=== PATIENT | female | born 1940 | race Caucasian/White ===

== ENCOUNTER → 2017-11-23 11:56 | Outpatient (CLI) | payer MEDICARE, OTHER, SELFPAY ==
[2017-11-23 14:31] LABS: Absolute Neutrophil Count 1.6 X10^3/uL (2.0-7.7); Basophil# 0.02 X10^3/uL; Basophil% 0.6 % (0-1); Eosinophil# 0.01 X10^3/uL; Eosinophils% 0.3 % (0-5); Hematocrit 47.1 % (37-47); Hemoglobin 15.6 g/dl (12.0-15.0); Lymphocyte % 42.4 % (19-41); Mean Corp Hgb Conc 33.1 g/gl (32-36); Mean Corpuscular Hgb 29.3 pg (27.0-32.0); Mean Corpuscular Volume 88.4 fL (81-99); Mean Platelet Vol. 10.5 fl (6.2-12.0); Monocyte# 0.42 X10^3/uL; Monocyte% 11.9 % (0-10); Neutrophil # 1.59 X10^3/uL (2.7-7.7); Neutrophil % 44.8 % (47-70); Platelet Count 119 K/mm3 (150-450); RBC Distribution Width CV 13.8 % (11.6-14.6); RBC Distribution Width SD 44.8 fl (35.1-43.9); Red Blood Count 5.33 M/mm3 (4.2-5.4); White Blood Count 3.5 K/mm3 (4.4-11.0)
[2017-11-23 14:35] LABS: POSITIVE COUNT NO; POSITIVE DIFFERENTIAL NO; POSITIVE MORPHOLOGY NO
[2017-11-23 15:01] LABS: AST(SGOT) 37 U/L (15-37); Alanine Aminotransfer ALT/SGPT 41 U/L (13-56); Albumin, Serum 3.5 g/dL (3.2-5.0); Alkaline Phosphatase 52 U/L (45-117); Anion Gap 7 (5-15); BUN 5 mg/dL (7-18); BUN/Creat Ratio 8.4 RATIO (10-20); Calcium,Total 8.9 mg/dL (8.5-10.1); Chloride 100 mmol/L (98-107); EST Glomerular Filtration Rate 105 mL/min (>60); Est Glom Filt Rate - Afr Amer 127 mL/min (>60); Globulin 3.5 g/dL (2.2-4.2); Glucose 124 mg/dL (74-106); Sodium Level 136 mmol/L (136-145); Thyroid Stim Hormone (TSH) 1.72 uIU/mL (0.358-3.74)
== END ==
PROVIDERS: Family Provider Family Medicine; PCP Family Medicine; Visit Provider Family Medicine
DX: K52.9 Noninfective gastroenteritis and colitis, unspecified (principal); R41.3 Other amnesia
CPT/HCPCS: 36415; 80053; 84443; 85025

== ENCOUNTER → 2017-12-20 09:25 | Outpatient (CLI) | payer MEDICARE, OTHER, SELFPAY ==
[2017-12-20 12:28] LABS: Absolute Lymphocyte Count 2.56 X10^3/ul (0.83-4.51); Absolute Neutrophil Count 3.5 X10^3/uL (2.0-7.7); Basophil# 0.03 X10^3/uL; Basophil% 0.4 % (0-1); Eosinophil# 0.23 X10^3/uL; Eosinophils% 3.3 % (0-5); Hemoglobin 15.1 g/dl (12.0-15.0); Lymphocyte # 2.56 X10^3/ul (4.0); Lymphocyte % 37.3 % (19-41); Mean Corp Hgb Conc 32.8 g/gl (32-36); Mean Corpuscular Hgb 29.7 pg (27.0-32.0); Mean Corpuscular Volume 90.4 fL (81-99); Mean Platelet Vol. 10.8 fl (6.2-12.0); Monocyte# 0.55 X10^3/uL; Neutrophil # 3.48 X10^3/uL (2.7-7.7); Neutrophil % 50.7 % (47-70); Platelet Count 201 K/mm3 (150-450); RBC Distribution Width CV 14.5 % (11.6-14.6); RBC Distribution Width SD 47.2 fl (35.1-43.9); Red Blood Count 5.09 M/mm3 (4.2-5.4); White Blood Count 6.9 K/mm3 (4.4-11.0)
[2017-12-20 12:32] LABS: POSITIVE COUNT NO; POSITIVE DIFFERENTIAL NO; POSITIVE MORPHOLOGY NO
[2017-12-20 12:41] LABS: Vitamin B12 1092 pg/mL (211-911)
== END ==
PROVIDERS: Visit Provider Family Medicine
DX: D69.6 Thrombocytopenia, unspecified (principal); E53.8 Deficiency of other specified B group vitamins
CPT/HCPCS: 36415; 82607; 85025

== ENCOUNTER → 2018-06-09 08:48 | Outpatient (CLI) | payer MEDICARE, OTHER, SELFPAY ==
[2018-06-10 08:34] LABS: Vitamin B12 923 pg/mL (211-911)
== END ==
PROVIDERS: Family Provider Family Medicine; PCP Family Medicine; Visit Provider Family Medicine
DX: E53.8 Deficiency of other specified B group vitamins (principal)
CPT/HCPCS: 36415; 82607

== ENCOUNTER → 2018-06-17 10:25 | Outpatient (CLI) | payer MEDICARE, OTHER, SELFPAY ==
[2018-06-17 12:12] LABS: AST(SGOT) 19 U/L (15-37); Alanine Aminotransfer ALT/SGPT 28 U/L (13-56); Anion Gap 8 (5-15); BUN 10 mg/dL (7-18); BUN/Creat Ratio 13.6 RATIO (10-20); Calcium,Total 9.2 mg/dL (8.5-10.1); Chloride 106 mmol/L (98-107); Cholesterol 147 mg/dL (200); Creatinine, Serum 0.74 mg/dL (0.55-1.02); EST Glomerular Filtration Rate 82 mL/min (>60); Est Glom Filt Rate - Afr Amer 99 mL/min (>60); Glucose 98 mg/dL (74-106); High Density Lipoprotein 65 mg/dL; Sodium Level 141 mmol/L (136-145); Triglycerides 105 mg/dL; Very Low Density Lipoprotein 21 mg/dL (5-40)
== END ==
PROVIDERS: Family Provider Family Medicine; PCP Family Medicine; Visit Provider Family Medicine
DX: Z01.419 Encounter for gynecological examination (general) (routine) without abnormal findings (principal); E78.5 Hyperlipidemia, unspecified
CPT/HCPCS: 36415; 80048; 80061; 84450; 84460

== ENCOUNTER → 2018-07-26 08:39 | Outpatient (CLI) | payer MEDICARE, OTHER, SELFPAY ==
--- NOTE | 2018-07-26 08:45 | BI_ITS ---
MAMMOGRAPHY - BILATERAL SCREENING REASON FOR EXAM: Female, 77 years old. Routine annual screening examination. PERTINENT HISTORY: Aunt with breast cancer. Remote bilateral excisional breast biopsies. TECHNIQUE: Digital bilateral breast narcisa (3D mammographic acquisition) in the CC and MLO projections. 2-D mediolateral oblique (MLO) and craniocaudad (CC) views of both breasts were obtained. CAD: Full Field Digital Mammography with Computer Added Detection was performed. COMPARISON: Comparison is made with prior examination dated June 30, 2017 and June 04, 2016. FINDINGS: Breast Composition: There are scattered areas of fibroglandular density. There are no dominant masses or suspicious calcifications. Stable appearance of the small bilateral axillary lymph nodes. No other significant abnormalities are identified. There has been no significant change since the prior study. BI/SCREENING MAMM (CAD), BILAT IMPRESSION: Stable bilateral screening mammogram. Yearly follow-up mammogram recommended. (A) ASSESSMENT CATEGORY: BIRADS Category 2: Benign. A letter regarding these results will be sent to the patient by the facility within 30 days. Approximately 10% of breast cancers are not detected by mammography. A normal mammogram should not delay biopsy of a clinically suspicious abnormality. [id number] Electronically Signed: Reymundo Cassidy MD at 10:26 EDT Tel [phone], Service support ,
== END ==
PROVIDERS: Family Provider Family Medicine; PCP Family Medicine; Visit Provider Family Medicine
DX: Z12.31 Encounter for screening mammogram for malignant neoplasm of breast (principal)
CPT/HCPCS: 77063; 77067

== ENCOUNTER → 2018-09-21 09:40 | Outpatient (CLI) | payer MEDICARE, OTHER, SELFPAY ==
--- NOTE | 2018-09-21 09:45 | RAD_ITS ---
STUDY: X-RAY - THORACIC SPINE REASON FOR EXAM: Female, 78 years old. TECHNIQUE: view(s) of the thoracic spine were obtained. COMPARISON: None. FINDINGS: There is mild kyphosis with the narrowing of some of the disc spaces in the mid dorsal spine associated with anterior osteophyte formation. No paraspinal soft tissue mass seen. RAD/Thoracic Spine 2 Views IMPRESSION: Mild kyphosis and hypertrophic degenerative changes of the dorsal spine Electronically Signed: Giovanny Juan, at 15:49 EST Tel , Service support ,
== END ==
PROVIDERS: Family Provider Family Medicine; PCP Family Medicine; Referring Provider Anesthesiology Pain Medicine; Visit Provider Anesthesiology Pain Medicine
DX: M40.294 Other kyphosis, thoracic region (principal); M48.04 Spinal stenosis, thoracic region
CPT/HCPCS: 72070

== ENCOUNTER → 2018-11-10 11:25 | Outpatient (CLI) | payer MEDICARE, OTHER, SELFPAY ==
--- NOTE | 2018-11-10 11:30 | RAD_ITS ---
STUDY: X-RAY - LUMBAR SPINE REASON FOR EXAM: Female, 78 years old. Low back pain TECHNIQUE: 2 view(s) of the lumbar spine were obtained. COMPARISON: 2013 FINDINGS: Normal lumbar lordosis. There is no substantial scoliosis. There is a normal alignment of the vertebrae. There is multilevel endplate spondylosis of the lumbar vertebrae. There is multi-level degenerative disc disease with multi-level disc space narrowing. There is no demonstrated fracture. There is atherosclerotic calcification of the abdominal aorta without a demonstrated aneurysm. RAD/Lumbar Spine 2 or 3 Views IMPRESSION: Degenerative changes of the spine, as detailed above. Electronically Signed: Piter Choudhury MD at 13:57 EST , Service support ,
== END ==
PROVIDERS: Family Provider Family Medicine; PCP Family Medicine; Referring Provider Anesthesiology Pain Medicine; Visit Provider Anesthesiology Pain Medicine
DX: M47.896 Other spondylosis, lumbar region (principal); M51.36 Other intervertebral disc degeneration, lumbar region; M48.061 Spinal stenosis, lumbar region without neurogenic claudication
CPT/HCPCS: 72100

== ENCOUNTER → 2018-11-25 15:16 | Outpatient (CLI) | payer MEDICARE, OTHER, SELFPAY ==
--- NOTE | 2018-11-25 15:21 | MRI_ITS ---
STUDY: MRI THORACIC SPINE WITHOUT CONTRAST REASON FOR EXAM: Female, 78 years old. Back pain radiating to the anterior right side. TECHNIQUE: Standardized fat and water weighted pulse sequences were obtained in the sagittal and axial planes. COMPARISON: None. FINDINGS: Normal kyphosis of the thoracic spine. There is no substantial scoliosis. T1-2, T2-3, T3-4, T4-5, T5-6, T6-7, T7-8, T8-9, T9-10, T10-11, T11-12: Multilevel disc desiccation is present with mild disc space loss. No significant disc bulge, spinal canal narrowing or foraminal narrowing is evident. There is a central canal dilatation of the thoracic cord measuring approximately 2 mm and likely associated with persistent central canal given appearance. No evidence of a Chiari formation on sagittal cervical imaging. Normal conus medullaris that terminates at the near L1. The soft tissue structures are unremarkable. MRI/Spine Thoracic (Routine) IMPRESSION: 1. Degenerative changes as above with no significant spinal canal narrowing, foraminal narrowing or acute osseous process. 2. 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 Recommend follow-up imaging to ensure stability as this study will serve as a baseline. Electronically Signed: Joey Hough DO at 10:10 EST , Service support ,
--- NOTE | 2018-11-25 15:22 | MRI_ITS ---
STUDY: MRI LUMBAR SPINE WITHOUT CONTRAST REASON FOR EXAM: Female, 78 years old. Back pain radiates anterior and to the right side. TECHNIQUE: Standardized fat and water weighted pulse sequences were obtained in the sagittal and axial planes. COMPARISON: X-ray lumbar spine 11/10/2018. FINDINGS: T12-L1: Normal endplates. Normal disc height, hydration and morphology. Normal bilateral facet joints. Normal central canal and bilateral lateral recesses. Normal bilateral intervertebral neural foramina. Normal lumbar lordosis. There is no substantial scoliosis. Normal conus medullaris that terminates at the L1 level. L1-2: Normal endplates. Normal disc height, hydration and morphology. There is a very small left paramedian protrusion, likely spondylotic. This is noncompressive. Normal bilateral facet joints. Normal central canal and bilateral lateral recesses. Normal bilateral intervertebral neural foramina. L2-3: Normal endplates. Normal disc height, hydration and morphology. Mild facet hypertrophy, greater on the right. Normal central canal and bilateral lateral recesses. Normal bilateral intervertebral neural foramina. L3-4: Normal endplates. Disc dehydration and mild disc space narrowing. No disc protrusion or canal stenosis. Mild facet hypertrophy. There is mild right foraminal stenosis due to spurring and facet hypertrophy. L4-5: Normal endplates. Disc dehydration and mild disc space narrowing. No disc protrusion or canal stenosis. There is moderate facet hypertrophy bilaterally. Foramina are patent. L5-S1: Normal endplates. Normal disc height, hydration and morphology. Moderate facet hypertrophy, greater on the right. Normal central canal and bilateral lateral recesses. Normal bilateral intervertebral neural foramina. Normal visualized sacral ala. Normal visualized paraspinous soft tissue structures. MRI/Spine Lumbar (Routine) IMPRESSION: 1. No compressive disc disease, canal or high-grade foraminal stenosis. 2. Degenerative changes are detailed above. Electronically Signed: Flores Crowe MD at 21:36 EST Tel , Service support ,
== END ==
PROVIDERS: Family Provider Family Medicine; PCP Family Medicine; Referring Provider Anesthesiology Pain Medicine; Visit Provider Anesthesiology Pain Medicine
DX: M54.9 Dorsalgia, unspecified (principal)
CPT/HCPCS: 72146; 72148

== ENCOUNTER → 2018-12-07 09:05 | Outpatient (CLI) | payer MEDICARE, OTHER, SELFPAY ==
[2018-12-07 11:00] LABS: Anion Gap 9 (5-15); BUN 12 mg/dL (7-18); BUN/Creat Ratio 17.3 RATIO (10-20); Calcium,Total 8.9 mg/dL (8.5-10.1); Chloride 103 mmol/L (98-107); Creatinine, Serum 0.69 mg/dL (0.55-1.02); EST Glomerular Filtration Rate 87 mL/min (>60); Est Glom Filt Rate - Afr Amer 106 mL/min (>60); Glucose 84 mg/dL (74-106); Potassium 3.9 mmol/L (3.5-5.1); Sodium Level 139 mmol/L (136-145); Vitamin B12 913 pg/mL (211-911)
== END ==
PROVIDERS: Family Provider Family Medicine; PCP Family Medicine; Referring Provider Family Medicine; Visit Provider Family Medicine
DX: I10 Essential (primary) hypertension (principal); E53.8 Deficiency of other specified B group vitamins; E55.9 Vitamin D deficiency, unspecified
CPT/HCPCS: 36415; 80048; 82306; 82607

== ENCOUNTER → 2019-04-18 09:54 | Outpatient (CLI) | payer MEDICARE, OTHER, SELFPAY ==
--- NOTE | 2019-04-18 09:55 | RAD_ITS ---
STUDY: X-RAY - THORACIC SPINE REASON FOR EXAM: Female, 78 years old. Mid back pain TECHNIQUE: 3 view(s) of the thoracic spine were obtained. COMPARISON: None. FINDINGS: There is an increase in the normal thoracic kyphosis. There is no substantial scoliosis. There is demineralization of the thoracic spine with endplate spondylosis. There is multilevel disc space narrowing of the thoracic spine. The soft tissue structures are unremarkable. RAD/Thoracic Spine 3 Views IMPRESSION: Multilevel degenerative changes, no acute findings Electronically Signed: Piter Choudhury MD at 10:57 EDT , Service support ,
--- NOTE | 2019-04-18 09:55 | RAD_ITS ---
STUDY: X-RAY - LUMBAR SPINE REASON FOR EXAM: Female, 78 years old. Low back pain TECHNIQUE: 4 view(s) of the lumbar spine were obtained. COMPARISON: 11/10/18 FINDINGS: Normal lumbar lordosis. There is no substantial scoliosis. There is a normal alignment of the vertebrae. There is multilevel endplate spondylosis of the lumbar vertebrae. There is multi-level degenerative disc disease with multi-level disc space narrowing. There is no demonstrated fracture. There is atherosclerotic calcification of the abdominal aorta without a demonstrated aneurysm. RAD/L/S Spine Min 4 Views IMPRESSION: Degenerative changes of the spine, as detailed above. Electronically Signed: Piter Choudhury MD at 10:57 EDT , Service support ,
== END ==
PROVIDERS: Family Provider Family Medicine; PCP Family Medicine; Referring Provider Orthopaedic Surgery; Visit Provider Orthopaedic Surgery
DX: M54.5 Low back pain (principal)
CPT/HCPCS: 72072; 72110

== ENCOUNTER → 2019-06-23 09:30 | Outpatient (CLI) | payer MEDICARE, OTHER, SELFPAY ==
[2019-06-23 12:37] LABS: AST(SGOT) 22 U/L (15-37); Alanine Aminotransfer ALT/SGPT 28 U/L (13-56); Anion Gap 6 (5-15); BUN 11 mg/dL (7-18); BUN/Creat Ratio 14.8 RATIO (10-20); Calcium,Total 9.6 mg/dL (8.5-10.1); Chloride 106 mmol/L (98-107); Cholesterol 176 mg/dL (200); Creatinine, Serum 0.74 mg/dL (0.55-1.02); EST Glomerular Filtration Rate 81 mL/min (>60); Est Glom Filt Rate - Afr Amer 98 mL/min (>60); Glucose 99 mg/dL (74-106); High Density Lipoprotein 73 mg/dL; Potassium 4.2 mmol/L (3.5-5.1); Sodium Level 142 mmol/L (136-145); Triglycerides 105 mg/dL; Very Low Density Lipoprotein 21 mg/dL (5-40)
== END ==
PROVIDERS: Family Provider Family Medicine; PCP Family Medicine; Referring Provider Family Medicine; Visit Provider Family Medicine
DX: I10 Essential (primary) hypertension (principal); E78.5 Hyperlipidemia, unspecified
CPT/HCPCS: 36415; 80048; 80061; 84450; 84460

== ENCOUNTER → 2019-07-27 07:24 | Outpatient (CLI) | payer MEDICARE, OTHER, SELFPAY ==
--- NOTE | 2019-07-27 07:27 | BI_ITS ---
MAMMOGRAPHY - BILATERAL SCREENING REASON FOR EXAM: Female, 78 years old. Routine annual screening examination. PERTINENT HISTORY: Aunt with breast cancer. Remote right and left excisional breast biopsies. TECHNIQUE: Digital bilateral breast mary (3D mammographic acquisition) in the CC and MLO projections. 2-D mediolateral oblique (MLO) and craniocaudad (CC) views of both breasts were obtained. CAD: Full Field Digital Mammography with Computer Added Detection was performed. COMPARISON: Comparison is made with prior examination July 26, 2018 and June 30, 2017. FINDINGS: Breast Composition: There are scattered areas of fibroglandular density. There are no dominant masses or suspicious calcifications. Stable benign-appearing bilateral axillary lymph nodes No other significant abnormalities are identified. There has been no significant change since the prior study. BI/SCREEN MAMM (CAD) W/MARY BILAT IMPRESSION: Stable bilateral screening mammogram. Yearly follow-up mammogram recommended. (A) ASSESSMENT CATEGORY: BIRADS Category 2: Benign. A letter regarding these results will be sent to the patient by the facility within 30 days. Approximately 10% of breast cancers are not detected by mammography. A normal mammogram should not delay biopsy of a clinically suspicious abnormality. [id number] Electronically Signed: Reymundo Cassidy, at 9:11 EDT , Service support ,
== END ==
PROVIDERS: Family Provider Family Medicine; PCP Family Medicine; Referring Provider Nurse Practitioner Adult Health; Visit Provider Nurse Practitioner Adult Health
DX: Z12.31 Encounter for screening mammogram for malignant neoplasm of breast (principal); Z80.3 Family history of malignant neoplasm of breast
CPT/HCPCS: 77063; 77067

== ENCOUNTER → 2019-08-22 12:04 | Outpatient (CLI) | payer MEDICARE, OTHER, SELFPAY | PROVIDERS: Family Provider Family Medicine; PCP Family Medicine; Referring Provider Family Medicine; Visit Provider Family Medicine | DX: R30.0 Dysuria (principal) | CPT/HCPCS: 87086; 87088 ==

== ENCOUNTER → 2019-11-30 09:03 | Outpatient (CLI) | payer MEDICARE, OTHER, SELFPAY ==
[2019-11-30 10:30] LABS: AST(SGOT) 16 U/L (15-37); Alanine Aminotransfer ALT/SGPT 26 U/L (13-56); Anion Gap 5 (5-15); BUN 9 mg/dL (7-18); BUN/Creat Ratio 12.8 RATIO (10-20); Calcium,Total 9.5 mg/dL (8.5-10.1); Chloride 105 mmol/L (98-107); Cholesterol 165 mg/dL (200); EST Glomerular Filtration Rate 86 mL/min (>60); Est Glom Filt Rate - Afr Amer 104 mL/min (>60); Glucose 89 mg/dL (74-106); High Density Lipoprotein 64 mg/dL; Potassium 3.6 mmol/L (3.5-5.1); Sodium Level 141 mmol/L (136-145); Triglycerides 134 mg/dL; Very Low Density Lipoprotein 27 mg/dL (5-40)
[2019-11-30 10:34] LABS: Vitamin B12 506 pg/mL (211-911); Vitamin D,25 Hydroxy 39.2 ng/mL
== END ==
PROVIDERS: PCP Family Medicine; Referring Provider Family Medicine; Visit Provider Family Medicine
DX: E78.5 Hyperlipidemia, unspecified (principal); I10 Essential (primary) hypertension; E53.8 Deficiency of other specified B group vitamins; E55.9 Vitamin D deficiency, unspecified
CPT/HCPCS: 36415; 80048; 80061; 82306; 82607; 84450; 84460

== ENCOUNTER → 2019-12-08 10:06 | Outpatient (CLI) | payer MEDICARE, OTHER, SELFPAY ==
[2019-12-08 12:36] LABS: Absolute Lymphocyte Count 2.32 X10^3/uL (0.83-4.51); Absolute Neutrophil Count 3.8 X10^3/uL (2.0-7.7); Basophil# 0.05 X10^3/uL; Basophil% 0.7 % (0-1); Eosinophil# 0.14 X10^3/uL; Hematocrit 48.1 % (37-47); Hemoglobin 15.5 g/dL (12.0-15.0); Lymphocyte # 2.32 X10^3/ul (4.0); Lymphocyte % 33.9 % (19-41); Mean Corp Hgb Conc 32.2 g/dL (32-36); Mean Corpuscular Hgb 29.8 pg (27.0-32.0); Mean Corpuscular Volume 92.5 fL (81-99); Mean Platelet Vol. 10.8 fl (6.2-12.0); Monocyte# 0.52 X10^3/uL; Monocyte% 7.6 % (0-10); NRBC Flagged by Analyzer 0 % (0-5); Neutrophil # 3.81 X10^3/uL (2.7-7.7); Neutrophil % 55.7 % (47-70); Platelet Count 191 K/mm3 (150-450); RBC Distribution Width CV 13.3 % (11.6-14.6); RBC Distribution Width SD 45.5 fl (35.1-43.9); White Blood Count 6.9 K/mm3 (4.4-11.0)
== END ==
PROVIDERS: PCP Family Medicine; Visit Provider Family Medicine
DX: D69.6 Thrombocytopenia, unspecified (principal)
CPT/HCPCS: 36415; 85025

== ENCOUNTER → 2020-06-17 10:06 | Outpatient (CLI) | payer MEDICARE, OTHER, SELFPAY ==
[2020-06-17 13:51] LABS: BUN 8 mg/dL (7-18); Creatinine, Serum 0.63 mg/dL (0.55-1.02); Glucose 97 mg/dL (74-106)
[2020-06-17 13:52] LABS: Anion Gap 8 (5-15); BUN/Creat Ratio 12.7 RATIO (10-20); Calcium,Total 9.8 mg/dL (8.5-10.1); Chloride 106 mmol/L (98-107); EST Glomerular Filtration Rate 97 mL/min (>60); Est Glom Filt Rate - Afr Amer 118 mL/min (>60); Potassium 3.9 mmol/L (3.5-5.1); Sodium Level 143 mmol/L (136-145)
== END ==
PROVIDERS: PCP Family Medicine; Referring Provider Family Medicine; Visit Provider Family Medicine
DX: I10 Essential (primary) hypertension (principal)
CPT/HCPCS: 36415; 80048

== ENCOUNTER → 2020-08-09 10:27 | Outpatient (CLI) | payer MEDICARE, OTHER, SELFPAY ==
--- NOTE | 2020-08-09 10:30 | BI_ITS ---
MAMMOGRAPHY - BILATERAL SCREENING REASON FOR EXAM: Female, 79 years old. Routine annual screening examination. PERTINENT HISTORY: Aunt with breast cancer. Remote bilateral excisional breast biopsies. TECHNIQUE: Digital bilateral breast mary (3D mammographic acquisition) in the CC and MLO projections. 2-D mediolateral oblique (MLO) and craniocaudad (CC) views of both breasts were obtained. CAD: Full Field Digital Mammography with Computer Added Detection was performed. COMPARISON: Comparison is made with prior study dated 07/27/2019 and 07/26/2018. FINDINGS: Breast Composition: There are scattered areas of fibroglandular density. There are no dominant masses or suspicious calcifications. Stable benign appearing bilateral axillary lymph nodes. No other significant abnormalities are identified. There has been no significant change since the prior study. BI/SCREEN MAMM (CAD) W/MARY BILAT IMPRESSION: Stable bilateral screening mammogram. Yearly follow-up mammogram recommended. (A) ASSESSMENT CATEGORY: BIRADS Category 2: Benign. A letter regarding these results will be sent to the patient by the facility within 30 days. Approximately 10% of breast cancers are not detected by mammography. A normal mammogram should not delay biopsy of a clinically suspicious abnormality. [id number] Electronically Signed: Reymundo Cassidy, at 11:31 EST , Service support ,
== END ==
PROVIDERS: PCP Family Medicine; Referring Provider Family Medicine; Visit Provider Family Medicine
DX: Z12.31 Encounter for screening mammogram for malignant neoplasm of breast (principal)
CPT/HCPCS: 77063; 77067

== ENCOUNTER → 2021-01-07 09:29 | Outpatient (CLI) | payer MEDICARE, OTHER, SELFPAY ==
[2021-01-07 12:21] LABS: Absolute Lymphocyte Count 2.33 X10^3/uL (0.83-4.51); Absolute Neutrophil Count 4.1 X10^3/uL (2.0-7.7); Basophil# 0.05 X10^3/uL; Basophil% 0.7 % (0-1); Eosinophil# 0.18 X10^3/uL; Eosinophils% 2.5 % (0-5); Hematocrit 49.5 % (37-47); Lymphocyte # 2.33 X10^3/ul (4.0); Lymphocyte % 32.5 % (19-41); Mean Corp Hgb Conc 32.3 g/dL (32-36); Mean Corpuscular Hgb 30.3 pg (27.0-32.0); Mean Corpuscular Volume 93.8 fL (81-99); Mean Platelet Vol. 10.4 fl (6.2-12.0); Monocyte# 0.48 X10^3/uL; Monocyte% 6.7 % (0-10); NRBC Flagged by Analyzer 0 % (0-5); Neutrophil # 4.11 X10^3/uL (2.7-7.7); Neutrophil % 57.3 % (47-70); Platelet Count 219 K/mm3 (150-450); RBC Distribution Width CV 13.2 % (11.6-14.6); RBC Distribution Width SD 45.1 fl (35.1-43.9); Red Blood Count 5.28 M/mm3 (4.2-5.4); White Blood Count 7.2 K/mm3 (4.4-11.0)
[2021-01-07 12:40] LABS: Vitamin B12 343 pg/mL (211-911); Vitamin D,25 Hydroxy 26.2 ng/mL
[2021-01-07 12:57] LABS: Microalbumin,Random Urine 7.5 mg/L (NO RANGE EST.); Microalbumin:Creatinine Ratio 8.7 mg/g CRE (<30 mg/g CRE)
[2021-01-07 13:00] LABS: AST(SGOT) 15 U/L (15-37); Alanine Aminotransfer ALT/SGPT 25 U/L (13-56); Anion Gap 5 (5-15); BUN 12 mg/dL (7-18); BUN/Creat Ratio 15.8 RATIO (10-20); Calcium,Total 9.6 mg/dL (8.5-10.1); Chloride 104 mmol/L (98-107); Cholesterol 176 mg/dL (200); Creatinine, Serum 0.76 mg/dL (0.55-1.02); EST Glomerular Filtration Rate 78 mL/min (>60); Est Glom Filt Rate - Afr Amer 94 mL/min (>60); Glucose 98 mg/dL (74-106); High Density Lipoprotein 67 mg/dL; Potassium 4.1 mmol/L (3.5-5.1); Sodium Level 138 mmol/L (136-145); Triglycerides 131 mg/dL; Very Low Density Lipoprotein 26 mg/dL (5-40)
== END ==
PROVIDERS: PCP Family Medicine; Referring Provider Family Medicine; Visit Provider Family Medicine
DX: I10 Essential (primary) hypertension (principal); E55.9 Vitamin D deficiency, unspecified; E53.8 Deficiency of other specified B group vitamins; E78.5 Hyperlipidemia, unspecified
CPT/HCPCS: 36415; 80048; 80061; 82043; 82306; 82570; 82607; 84450; 84460; 85025

== ENCOUNTER → 2021-07-14 10:34 | Outpatient (CLI) | payer MEDICARE, OTHER, SELFPAY ==
[2021-07-14 12:19] LABS: Absolute Neutrophil Count 3.7 X10^3/uL (2.0-7.7); Basophil# 0.05 X10^3/uL; Basophil% 0.7 % (0-1); Eosinophil# 0.11 X10^3/uL; Eosinophils% 1.6 % (0-5); Hematocrit 46.7 % (37-47); Hemoglobin 15.4 g/dL (12.0-15.0); Lymphocyte % 35.8 % (19-41); Mean Corpuscular Hgb 30.5 pg (27.0-32.0); Mean Corpuscular Volume 92.5 fL (81-99); Mean Platelet Vol. 10.4 fl (6.2-12.0); Monocyte# 0.47 X10^3/uL; NRBC Flagged by Analyzer 0 % (0-5); Neutrophil # 3.65 X10^3/uL (2.7-7.7); Neutrophil % 54.6 % (47-70); Platelet Count 189 K/mm3 (150-450); RBC Distribution Width CV 13.3 % (11.6-14.6); RBC Distribution Width SD 45.1 fl (35.1-43.9); Red Blood Count 5.05 M/mm3 (4.2-5.4); White Blood Count 6.7 K/mm3 (4.4-11.0)
[2021-07-14 12:55] LABS: Anion Gap 7 (5-15); BUN 7 mg/dL (7-18); BUN/Creat Ratio 9.4 RATIO (10-20); Calcium,Total 9.6 mg/dL (8.5-10.1); Chloride 104 mmol/L (98-107); Cholesterol 156 mg/dL (200); Creatinine, Serum 0.74 mg/dL (0.55-1.02); EST Glomerular Filtration Rate 80 mL/min (>60); Est Glom Filt Rate - Afr Amer 97 mL/min (>60); Glucose 97 mg/dL (74-106); High Density Lipoprotein 70 mg/dL; Potassium 4.1 mmol/L (3.5-5.1); Sodium Level 141 mmol/L (136-145); Triglycerides 109 mg/dL; Very Low Density Lipoprotein 22 mg/dL (5-40)
== END ==
PROVIDERS: PCP Family Medicine; Visit Provider Family Medicine
DX: I10 Essential (primary) hypertension (principal); L65.9 Nonscarring hair loss, unspecified
CPT/HCPCS: 36415; 80048; 80061; 84443; 85025

== ENCOUNTER → 2021-08-19 08:01 | Outpatient (CLI) | payer MEDICARE, OTHER, SELFPAY ==
--- NOTE | 2021-08-19 08:04 | BI_ITS ---
MAMMOGRAPHY - BILATERAL SCREENING 3-D TOMOSYNTHESIS REASON FOR EXAM: Female, 80 years old. Routine screening PERTINENT HISTORY: Aunt with breast cancer.. TECHNIQUE: 2-D mammograms and 3-D Tomosynthesis of the breast (s) were performed. CAD was performed. COMPARISON: 08/09/2020 FINDINGS: The breast composition is composed of scattered fibroglandular density. Scattered benign calcifications are seen. No dense spiculated masses or suspicious microcalcifications are identified. No architectural distortion is identified. There is no skin thickening or retraction. There has been no significant change since the prior study. BI/SCREENING MAMM (CAD), BILAT IMPRESSION: No mammographic signs of malignancy. Routine yearly mammograms recommended. ASSESSMENT CATEGORY: BIRADS Category 1: Negative. A letter regarding these results will be sent to the patient by the facility within 30 days. FOLLOW UP RECOMMENDATION: Yearly follow up mammogram recommended. (A) Approximately 10% of breast cancers are not detected by mammography. A normal mammogram should not delay biopsy of a clinically suspicious abnormality. Electronically Signed: Piter Choudhury MD at 10:35 EST , Service support ,
== END ==
PROVIDERS: PCP Family Medicine; Referring Provider Family Medicine; Visit Provider Family Medicine
DX: Z12.31 Encounter for screening mammogram for malignant neoplasm of breast (principal); R30.0 Dysuria
CPT/HCPCS: 77067; 87086; 87088

== ENCOUNTER 2022-01-12 10:08 | Outpatient (CLI) | payer MEDICARE, OTHER, SELFPAY ==
[2022-01-12 12:26] LABS: Vitamin D,25 Hydroxy 59.4 ng/mL
== END 2022-01-12 23:59 | disposition home or self-care (01) ==
LOC: MFPLAB 10:09
PROVIDERS: PCP Family Medicine; Visit Provider Family Medicine
DX: E55.9 Vitamin D deficiency, unspecified (principal)
CPT/HCPCS: 36415; 82306

== ENCOUNTER → 2022-07-13 | Outpatient (CLI) | payer MEDICARE, OTHER, SELFPAY ==
[2022-07-13 12:19] LABS: Absolute Lymphocyte Count 2.26 X10^3/uL (0.83-4.51); Basophil# 0.05 X10^3/uL; Basophil% 0.7 % (0-1); Eosinophil# 0.17 X10^3/uL; Eosinophils% 2.5 % (0-5); Hematocrit 49.2 % (37-47); Hemoglobin 16.4 g/dL (12.0-15.0); Lymphocyte # 2.26 X10^3/ul (0.83-4.51); Lymphocyte % 32.9 % (19-41); Mean Corp Hgb Conc 33.3 g/dL (32-36); Mean Corpuscular Hgb 31.1 pg (27.0-32.0); Mean Corpuscular Volume 93.4 fL (81-99); Mean Platelet Vol. 10.5 fl (6.2-12.0); Monocyte# 0.43 X10^3/uL; Monocyte% 6.3 % (0-10); NRBC Flagged by Analyzer 0 % (0-5); Neutrophil # 3.95 X10^3/uL (2.7-7.7); Neutrophil % 57.5 % (47-70); Platelet Count 188 K/mm3 (150-450); RBC Distribution Width CV 13.3 % (11.6-14.6); RBC Distribution Width SD 45.5 fl (35.1-43.9); Red Blood Count 5.27 M/mm3 (4.2-5.4); White Blood Count 6.9 K/mm3 (4.4-11.0)
[2022-07-13 12:44] LABS: Vitamin B12 304 pg/mL (211-911)
[2022-07-13 13:22] LABS: AST(SGOT) 19 U/L (15-37); Alanine Aminotransfer ALT/SGPT 28 U/L (13-56); Anion Gap 8 (5-15); BUN 7 mg/dL (7-18); BUN/Creat Ratio 10.1 RATIO (10-20); Calcium,Total 9.9 mg/dL (8.5-10.1); Chloride 105 mmol/L (98-107); Cholesterol 164 mg/dL (200); Creatinine, Serum 0.69 mg/dL (0.55-1.02); EST Glomerular Filtration Rate 87 mL/min (>60); Est Glom Filt Rate - Afr Amer 105 mL/min (>60); Glucose 114 mg/dL (74-106); High Density Lipoprotein 69 mg/dL; Potassium 4.1 mmol/L (3.5-5.1); Sodium Level 140 mmol/L (136-145); Thyroid Stim Hormone (TSH) 1.71 uIU/mL (0.358-3.74); Triglycerides 126 mg/dL; Very Low Density Lipoprotein 25 mg/dL (5-40)
== END | disposition home or self-care (01) ==
LOC: MFPLAB 10:25
PROVIDERS: PCP Family Medicine; Referring Provider Family Medicine; Visit Provider Family Medicine
DX: E78.5 Hyperlipidemia, unspecified (principal); I10 Essential (primary) hypertension; E53.8 Deficiency of other specified B group vitamins; L65.9 Nonscarring hair loss, unspecified
CPT/HCPCS: 36415; 80048; 80061; 82607; 84443; 84450; 84460; 85025

== ENCOUNTER → 2022-08-14 | Outpatient (CLI) | payer MEDICARE, OTHER, SELFPAY ==
--- NOTE | 2022-08-14 09:40 | US_ITS ---
STUDY: ABDOMINAL ULTRASOUND - RIGHT UPPER QUADRANT REASON FOR VISIT: Female, 81 years old possible stone in bile duct/inflammation TECHNIQUE: Ultrasound evaluation of the right upper quadrant was performed with real-time and static neumann-scale imaging. TECHNICAL QUALITY: Adequate. COMPARISON: None. FINDINGS: Liver: The liver measures 13.9 cm. There is normal echogenicity of the liver. The bile ducts are within normal limits. There is hepatic color flow. The direction of portal flow is hepatopetal. There is no demonstrated mass lesion. Gallbladder: Normal distended gallbladder. The gallbladder wall measures 1.3 mm. There is a negative sonographic Parekh''s sign. There is no pericholecystic fluid. There are no gallstones. Common Bile Duct (C.B.D.): The common bile duct measures 6.3 mm. Pancreas: Normal size of the head, body and tail of the pancreas. There is increased echogenicity of the pancreas. There is no demonstrated pancreatic mass or cyst. Right Kidney: Normal size of the right kidney. The right kidney measures 10.1 cm x 4.7 cm x 3.3 cm. Normal renal cortex. The right cortex measures 1.0 cm. There is no demonstrated renal mass or cyst. There is no right hydronephrosis. US/Abdomen Limited IMPRESSION: Normal right upper quadrant ultrasound examination. Electronically Signed: Reymundo Cassidy MD at 14:47 EST ,
== END | disposition home or self-care (01) ==
LOC: US 09:39
PROVIDERS: PCP Family Medicine; Referring Provider Family Medicine; Visit Provider Family Medicine
DX: K82.9 Disease of gallbladder, unspecified (principal)
CPT/HCPCS: 76705

== ENCOUNTER → 2022-08-24 | Outpatient (CLI) | payer MEDICARE, OTHER, SELFPAY ==
--- NOTE | 2022-08-24 07:42 | BI_ITS ---
MAMMOGRAPHY - BILATERAL SCREENING REASON FOR EXAM: Female, 81 years old. Routine annual screening examination. PERTINENT HISTORY: Aunt with breast cancer. Prior bilateral excisional breast biopsies. TECHNIQUE: Digital bilateral breast mary (3D mammographic acquisition) in the CC and MLO projections. 2-D mediolateral oblique (MLO) and craniocaudad (CC) views of both breasts were obtained. CAD: Full Field Digital Mammography with Computer Added Detection was performed. COMPARISON: Comparison is made with prior study dated 08/19/2021 and 08/09/2020. FINDINGS: Breast Composition: There are scattered areas of fibroglandular density. There are no dominant masses or suspicious calcifications. Stable small benign-appearing bilateral axillary lymph nodes. No other significant abnormalities are identified. There has been no significant change since the prior study. BI/SCRN MAMM (CAD)W/MARY BILAT IMPRESSION: Stable bilateral screening mammogram. Yearly follow-up mammogram recommended. (A) ASSESSMENT CATEGORY: BIRADS Category 2: Benign. A letter regarding these results will be sent to the patient by the facility within 30 days. Approximately 10% of breast cancers are not detected by mammography. A normal mammogram should not delay biopsy of a clinically suspicious abnormality. [id number] Electronically Signed: Reymundo Cassidy MD at 11:24 EST ,
== END | disposition home or self-care (01) ==
LOC: OPBI 07:41
PROVIDERS: PCP Family Medicine; Visit Provider Family Medicine
DX: Z12.31 Encounter for screening mammogram for malignant neoplasm of breast (principal)
CPT/HCPCS: 77063; 77067

== ENCOUNTER → 2023-01-15 | Outpatient (CLI) | payer MEDICARE, OTHER, SELFPAY | END | disposition home or self-care (01) | LOC: LABSPEC 12:13 | PROVIDERS: PCP Family Medicine; Referring Provider Family Medicine; Visit Provider Family Medicine | DX: R10.2 Pelvic and perineal pain (principal) | CPT/HCPCS: 87077; 87086; 87088; 87186 ==

== ENCOUNTER → 2023-01-19 | Outpatient (CLI) | payer MEDICARE, OTHER, SELFPAY ==
--- NOTE | 2023-01-19 12:54 | US_ITS ---
INDICATION: pelvic pain and urinary frequency EXAMINATION: Ultrasound US Pelvis Non OB Complete With Transvaginal Imaging TECHNIQUE: Transabdominal and transvaginal pelvic ultrasound was performed. Grayscale, spectral waveform, and color flow Doppler evaluation of the adnexa. COMPARISON: None. FINDINGS: UTERUS: Anteverted. The uterus measures 5.9 x 3.4 cm. There is no uterine mass. The endometrial stripe measures 7 mm in AP diameter which is within normal limits. There is a small amount of fluid seen within the endometrial cavity. There are scattered calcifications seen at the periphery of the uterus. RIGHT OVARY not visualized LEFT OVARY: 2.3 x 1.7 x 2.0 cm. Complex cyst likely hemorrhagic cyst 1.3 x 1.4 x 1.6 cm.. There is normal arterial inflow and venous outflow present in the left ovary. Posterior wall irregularity of the bladder. This could be due to incomplete distention or cystitis. Mass cannot be excluded. FREE FLUID: None. US/Pelvic w/ Transvaginal IMPRESSION: Endometrial thickness is 7 mm a small amount of fluid in endometrial cavity. Given patient''s postmenopausal status this could represent endometrial hyperplasia or endometrial carcinoma. Complex cyst left ovary 1.3 x 1.4 x 1.6 cm. This could represent hemorrhagic cyst. Other etiology cannot be excluded. Posterior bladder wall irregularity could be due to incomplete distention, cystitis or occult mass. Electronically Signed: Rad Arciniega MD, SE at 21:37 EDT ,
== END | disposition home or self-care (01) ==
LOC: US 12:54
PROVIDERS: PCP Family Medicine; Referring Provider Family Medicine; Visit Provider Family Medicine
DX: R10.2 Pelvic and perineal pain (principal)
CPT/HCPCS: 76830; 76856

== ENCOUNTER → 2023-01-29 | Outpatient (CLI) | payer MEDICARE, OTHER, SELFPAY ==
--- NOTE | 2023-01-29 | EMB_PTH ---
PATIENT: AMAN COBURN LOC: [facility] U#:[id number] AGE/SX: 82/F ROOM: RE01/29/[address]: Dr. Destinee Alvarenga DO : 1940 BED: DIS: 01/29/2023 SPEC #: [id number] RECD: 01/29/23 16:30 STATUS: EMETERIO SUAREZValdemar #: [id number] NANNETTE: 01/29/23 00:[address]: Destinee Alvarenga DEPT: SURGICAL PATHOLOGY RECD BY: Deana Gregory ENTERED: 02/01/23 10:02 SP TYPE: ENDOM BX/C OTHR DR: Dr. Mariana Redd MD Tissues: Endometrium, NOS Procedures: Surgery Specimen Level IV HEADER OPERATION: Endometrial biopsy PRE-OP DIAGNOSIS: Thickened endometrium. TISSUE SUBMITTED: Endometrial lining MICROSCOPIC DIAGNOSIS Endometrial biopsy: Scant strips of benign endometrial epithelium. Scant fragments of benign ecto- and endocervical epithelium and mucous. See comment. JOHNNIE:tamara 02/02/2023 COMMENT Clinical correlation and appropriate follow up are necessary. MICROSCOPIC DESCRIPTION Slides are reviewed. GROSS DESCRIPTION Received is one container labeled with the patient's name and not further designated. The specimen consists of a fragment of lui soft tissue measuring 0.3 x 0.3 x 0.1 cm. The specimen is totally submitted in one cassette. / JOHNNIE:tamara 02/01/2023 TC:4 CPT: 73335
== END | disposition home or self-care (01) ==
LOC: LABSPEC 16:36
PROVIDERS: PCP Family Medicine; Referring Provider Obstetrics & Gynecology; Visit Provider Obstetrics & Gynecology
DX: R93.89 Abnormal findings on diagnostic imaging of other specified body structures (principal)
CPT/HCPCS: 88305

== ENCOUNTER 2023-02-01 20:28 | Inpatient (IN) | payer MEDICARE, OTHER, SELFPAY ==
[2023-02-01 20:29] VITALS: BP 127/79; PULSE 78; RESP 22; TEMP 36.6; O2SAT 100
[2023-02-01 20:41] LABS: Absolute Lymphocyte Count 1.12 X10^3/uL (0.83-4.51); Basophil# 0.02 X10^3/uL; Basophil% 0.2 % (0-1); Eosinophil# 0.03 X10^3/uL; Eosinophils% 0.3 % (0-5); Hematocrit 47.1 % (37-47); Hemoglobin 16.5 g/dL (12.0-15.0); Lymphocyte # 1.12 X10^3/ul (0.83-4.51); Lymphocyte % 10.6 % (19-41); Mean Corpuscular Hgb 29.9 pg (27.0-32.0); Mean Corpuscular Volume 85.5 fL (81-99); Mean Platelet Vol. 9.6 fl (6.2-12.0); Monocyte# 0.35 X10^3/uL; Monocyte% 3.3 % (0-10); NRBC Flagged by Analyzer 0 % (0-5); Neutrophil # 9.01 X10^3/uL (2.7-7.7); Neutrophil % 85.2 % (47-70); Platelet Count 218 K/mm3 (150-450); RBC Distribution Width CV 12.8 % (11.6-14.6); RBC Distribution Width SD 39.5 fl (35.1-43.9); Red Blood Count 5.51 M/mm3 (4.2-5.4); White Blood Count 10.6 K/mm3 (4.4-11.0)
[2023-02-01] MEDS: 0.9% Normal Saline 1,000 ML 999 ML IV (20:51)
[2023-02-01 21:01] LABS: AST(SGOT) 17 U/L (15-37); Alanine Aminotransfer ALT/SGPT 26 U/L (13-56); Albumin, Serum 3.9 g/dL (3.2-5.0); Alkaline Phosphatase 69 U/L (45-117); Anion Gap 17 (5-15); BUN 9 mg/dL (7-18); BUN/Creat Ratio 11.3 RATIO (10-20); Calcium,Total 9.5 mg/dL (8.5-10.1); Chloride 85 mmol/L (98-107); EST Glomerular Filtration Rate 74 mL/min (>60); Est Glom Filt Rate - Afr Amer 89 mL/min (>60); Globulin 3.8 g/dL (2.2-4.2); Glucose 194 mg/dL (74-106); Protein, Total 7.7 g/dL (6.4-8.2); Sodium Level 124 mmol/L (136-145)
[2023-02-01 22:51] VITALS: BP 155/93; PULSE 76; RESP 19; TEMP 36.7; O2SAT 97
[2023-02-01 22:54] VITALS: BMI 26.7
[2023-02-02] VITALS (18 sets, daily range): BP systolic 113–166; BP diastolic 57–92; PULSE 68–140; RESP 14–19; TEMP 36.6–37.5; O2SAT 93–97; BMI 26.2
--- NOTE | 2023-02-02 | RAD_ITS ---
INDICATION: weakness, confusion EXAMINATION/TECHNIQUE: X-RAY - XR Chest 2 Views COMPARISON: FINDINGS: LINES/DEVICES: None. LUNGS: Subsegmental atelectases in the lung bases. Small bilateral pleural effusions. MEDIASTINUM AND CARDIOVASCULAR STRUCTURES: Cardiac silhouette not enlarged. Central airways and mediastinal contour are unremarkable. BONES AND SOFT TISSUES: Unremarkable. RAD/Chest PA and Lateral IMPRESSION: Subsegmental atelectases in the lung bases. Small bilateral pleural effusions. Electronically Signed: Zohra Chen MD at 0:59 EDT ,
[2023-02-02] MEDS: 0.9% Normal Saline 1,000 ML 125 ML IV ×2 (00:06→04:17)
[2023-02-02] MEDS: Ondansetron 4 MG/2 ML Vial IV ×4 (00:06→17:12)
[2023-02-02 00:56] LABS: Color, Urine Yellow (Yellow); Glucose, Dipstick 250 mg/dl (Normal); Leukocyte Esterase-Dipstick Negative /ul (Negative); Mucous, Urine 0 SEEN /hpf (<or=2+); Nitrite-Dipstick Negative (Negative); Occult Blood-Urine 250 /ul (Negative); Protein-Dipstick 30 mg/dl (Negative); Squamous Epithelial Cells - UA 0 SEEN /hpf (5-10); Urine Bilirubin Dipstick Negative (Negative); Urine Clarity Clear (Clear); Urine Urobilinogen Normal (Normal)
[2023-02-02 00:57] LABS: Ketone-Dipstick 150 mg/dl (Negative)
[2023-02-02 01:28] LABS: Bacteria 1+ /hpf (None Seen); Red Blood Cells-Urine 10-25 SEEN /hpf (0-5); White Blood Cells 0-5 SEEN /hpf (0-5)
--- NOTE | 2023-02-02 02:09 | EDS_ITS ---
HPI History of Present Illness Chief Complaint: General Illness Informant: patient and family (Multiple including and daughter) Narrative Narrative: Patient weak for the last day or 2 and feeling weird. She has trouble explaining this and history is limited because she does seem to be confused as well which the family agrees with now that I mention it. She recently treated for urinary tract infection, initially Bactrim, and then started on another medication that they do not know, it appears to maybe be Macrobid according to records that I am looking at, but the patient keeps indicating that she has been feeling funny ever since she started taking that. She stopped taking it 2 days ago. She was initially feeling urinary symptoms with the Bactrim initially, but she states she has not been experiencing them now that she can recall. She sta alen she was having some abdominal pain, and a bit of a headache but denies any other ROS. [facility] Medical History Chronic back pain History of COVID-19 Hyperlipidemia Hypertension Hypokalemia Post-therapeutic neuralgia Home Medications ascorbic acid (vitamin C) 500 mg tablet 500 mg PO DAILY 07/20/13 [History Last Taken Unknown] aspirin 81 mg tablet,delayed release 81 mg PO DAILY@0800 07/20/13 [History Last Taken Unknown] calcium carbonate 600 mg-vitamin D3 20 mcg (800 unit) tablet 1 tab PO BIDCM 07/20/13 [History Last Taken Unknown] gabapentin 600 mg tablet 600 mg PO 4X/DAY 07/20/13 [History Last Taken 07/25/13 08:00] naproxen sodium 220 mg tablet 220 mg PO Q8H PRN PRN Pain 07/20/13 [History Last Taken Unknown] omega-3 fatty acids-fish oil 684 mg-1,200 mg capsule,delayed release 1 cap PO DAILY 07/20/13 [History Last Taken Unknown] potassium chloride 10 mEq tablet,extended release 20 meq PO TID 07/20/13 [History Last Taken Unknown] amlodipine 10 mg tablet 5 mg PO DAILY 01/29/23 [History Last Taken Unknown] atorvastatin 20 mg tablet (Lipitor) 20 mg PO DAILY 01/29/23 [History Last Taken Unknown] cholecalciferol (vitamin D3) 50 mcg (2,000 unit) capsule 50 mcg PO DAILY 01/29/23 [History Last Taken Unknown] hydralazine 25 mg tablet 50 mg PO ONCE 01/29/23 [History Last Taken Unknown] metoprolol tartrate 50 mg tablet 25 mg PO BID 01/29/23 [History Last Taken Unknown] nitrofurantoin macrocrystal 100 mg capsule 100 mg PO BID 02/01/23 [History Last Taken Unknown] Allergy/AdvReac Type Severity Reaction Status Date / Time celecoxib [From Celebrex] Allergy Intermediate HEART RACE Verified 01/29/23 13:06 citalopram hydrobromide Allergy Intermediate HEART RACE Verified 01/29/23 13:06 [From Celexa] hydrochlorothiazide Allergy Intermediate Hives Verified 01/29/23 13:06 hydrocodone bitartrate Allergy Intermediate VOMITS Verified 01/29/23 13:06 [From Vicodin] ramipril [From Altace] Allergy Intermediate FACE Verified 01/29/23 13:06 SWELLING rofecoxib [From Vioxx] Allergy Intermediate HEART RACE Verified 01/29/23 13:06 valdecoxib [From Bextra] Allergy Intermediate HEART RACE Verified 01/29/23 13:06 amlodipine besylate Allergy Mild FACE Verified 01/29/23 13:06 [From Caduet] SWELLING atorvastatin calcium Allergy Mild FACE Verified 01/29/23 13:06 [From Caduet] SWELLING tramadol HCl [From Ultram] Allergy Mild Nausea Verified 01/29/23 13:06 citalopram [From Celexa] Allergy Unknown Verified 01/29/23 13:06 hydrocodone [From Vicodin] Allergy Unknown Verified 01/29/23 13:06 Iodinated Contrast Media Allergy Hives Verified 01/29/23 13:06 [Iodinated Contrast- Oral and IV Dye] lidocaine Allergy Unknown Verified 01/29/23 13:06 propoxyphene [From Darvon] Allergy Unknown Verified 01/29/23 13:06 clindamycin HCl AdvReac Intermediate Unknown Verified 01/29/23 13:06 [From Cleocin] clindamycin palmitate HCl AdvReac Intermediate Unknown Verified 01/29/23 13:06 [From Cleocin] clindamycin phosphate AdvReac Intermediate Unknown Verified 01/29/23 13:06 [From Cleocin] trazodone AdvReac Intermediate Nausea Verified 01/29/23 13:06 Penicillins AdvReac Mild DOES NOT Verified 01/29/23 13:06 WORK trazodone HCl [From Desyrel] AdvReac Mild Unknown Verified 01/29/23 13:06 acetaminophen AdvReac Nausea Verified 01/29/23 13:06 [From Darvocet-N 100] propoxyphene napsylate AdvReac Nausea Verified 01/29/23 13:06 [From Darvocet-N 100] Family History (Updated 01/29/23 @ 13:14 by Angelica Lebron) Father Acute lymphocytic leukemia CVA (cerebral vascular accident) Lymphoma Heart disease Grandfather Stomach cancer Aunt Breast cancer Lymphoma Surgical History S/P appendectomy S/P bilateral salpingo-oophorectomy S/P lumpectomy of breast Social History Smoking Status: Never smoker alcohol intake: never substance use type: does not use caffeine: Yes seatbelt use: always do you feel safe at home: Yes additional social history: - Justice ROS ROS ED Review of Systems ROS Unobtainable: other Details: Limited due to confusion but able to answer questions as indicated below Constitutional Constitutional ED: Reports fatigue and malaise; Denies chills or fever(s) Eyes Eyes: Denies change in vision or diplopia ENT ENT ED: Denies rhinorrhea or sore throat Cardiovascular Cardiovascular: Denies chest pain or palpitations Respiratory/Chest Respiratory/Chest: Denies cough or dyspnea Gastrointestinal Gastrointestinal: Reports abdominal pain; Denies diarrhea, nausea or vomiting Genitourinary Genitourinary ED: Denies dysuria or hematuria Musculoskeletal Musculoskeletal: Denies neck pain Integumentary Denies abscess or rash Neurologic Neurologic: Reports confusion and headache(s); Denies paresthesias or weakness Psychiatric Psychiatric: Denies anxiety or suicidal thoughts EXAM Physical Exam Const Vital Signs: 02/01/23 20:29 02/01/23 22:51 02/01/23 22:56 Temperature 97.9 F 98.1 F Temperature Source Oral Oral Pulse Rate 78 76 Respiratory Rate 22 H 19 H Respiratory Pattern Normal Blood Pressure 127/79 H 155/93 H Blood Pressure Mean 95 113 Pulse Ox 100 97 Oxygen Delivery Method Room Air Room Air 02/02/23 00:08 02/02/23 01:11 Temperature 98.1 F Temperature Source Oral Pulse Rate 75 72 Respiratory Rate 17 14 Respiratory Pattern Blood Pressure 142/87 H 144/62 H Blood Pressure Mean 105 89 Pulse Ox 96 97 Oxygen Delivery Method Room Air Room Air Positive well nourished and well developed General Appearance ED: well developed and NAD HEENT Reports moist mucous membranes normocephalic and atraumatic Eyes PERRL and EOMs intact bilaterally Neck full ROM and supple Resp normal respiratory effort and clear to auscultation bilaterally Cardio regular rate, regular rhythm and no murmurs GI non-distended GI Narrative: Tender epigastrium and left lower quadrant mildly no guarding or rebound tenderness no palpable masses. Auscultation: normoactive bowel sounds Palpation: soft Back/Spine no CVA tenderness General Back: other FROM Extremity normal to inspection General Extremety ED: Negative for edema, pulses abnormal or tenderness General Extremity: Negative for edema or pulses abnormal Neuro CN's II-XII intact bilaterally and no sensory deficits noted Neuro Narrative: Does act somewhat confused. Disoriented to date/time including the year but oriented to person and the family members that are with her in the place. Normal speech. Otherwise nonfocal neurologic exam. Sensorium / Orientation: awake, alert and orientation impaired Motor Exam: strength 5/5 throughout Skin no rashes or lesions noted and no wounds MDM MDM MDM Narrative Medical decision making narrative: Reviewed patient's old records, it appears that she had a pelvic mass recently that is being followed by Dr. Max, an MRI has been scheduled but not obtained yet. Given her mild abdominal tenderness I did a CT of the abdomen/pelvis and the head, those images appear unremarkable to me, and I reviewed the radiologist interpretations, I agree with them. Nothing acute seen except for small pleural effusions bilaterally. 2 view chest x-ray interpreted by myself is negative for any acute including pneumonia. Endometrial cancer in the differential diagnosis here, with her ultrasound findings and the fact she is postmenopausal, she has had ovaries removed so the cyst that was seen is unlikely to be ovary-related. There is no mass seen on the CT, she may need to have the MRI prior to further gynecologic intervention, but her labs do show hyponatremia and hypokalemia here, I suspect that the low sodium is causing her confusion and for this reason we are admitting her. History & Record Review Discussion w/independent historian: Patient and Family Additional record(s) reviewed:: Prior outpatient record ([facility] note from December. Pelvic ultrasound from December. Abdominal ultrasound from July.) and Prior labs Lab Data Attestation: I reviewed the patient's lab results. Labs: Laboratory Results - last 24 hr 02/01/23 02/01/23 02/02/23 20:35 20:35 00:47 WBC 10.6 RBC 5.51 H Hgb 16.5 H Hct 47.1 H MCV 85.5 MCH 29.9 MCHC 35.0 RDW Std Deviation 39.5 RDW Coeff of Rodrick 12.8 Plt Count 218 MPV 9.6 Immature Gran % (Auto) 0.400 Neut % (Auto) 85.2 H Lymph % (Auto) 10.6 L [place] % (Auto) 3.3 Eos % (Auto) 0.3 Baso % (Auto) 0.2 Absolute Neuts (auto) 9.0 H Absolute Lymphs (auto) 1.12 Nucleated RBC % 0 Sodium 124 L Potassium 3.0 L Chloride 85 L Carbon Dioxide 22.0 Anion Gap 17 H BUN 9 Creatinine 0.80 Est GFR (MDRD) Af Amer 89 Est GFR (MDRD) Non-Af 74 BUN/Creatinine Ratio 11.3 Glucose 194 H Calcium 9.5 Total Bilirubin 3.10 H AST 17 ALT 26 Alkaline Phosphatase 69 Total Protein 7.7 Albumin 3.9 Globulin 3.8 Albumin/Globulin Ratio 1.0 Urine Color Yellow Urine Clarity Clear Urine pH 6.0 Ur Specific [place] 1.020 Urine Protein 30 H Urine Glucose (UA) 250 H Urine Ketones 150 A* Urine Occult Blood 250 H Urine Nitrite Negative Urine Bilirubin Negative Urine Urobilinogen Normal Ur Leukocyte Esterase Negative Urine RBC 10-25 SEEN Urine WBC 0-5 SEEN Ur Squamous Epith Cells 0 SEEN Urine Bacteria 1+ Urine Mucus 0 SEEN Radiography Diagnostic Testing: Clinical Impression(s) from Imaging Studies Chest X-Ray 02/02/23 00:00 IMPRESSION: Subsegmental atelectases in the lung bases. Small bilateral pleural effusions. Electronically Signed: Zohra Chen MD at 0:59 EDT , Brain CT 02/02/23 23:26 IMPRESSION: Negative Brain CT without contrast. Electronically Signed: Zohra Chen MD at 0:49 EDT , Abdomen/Pelvis CT 02/02/23 23:29 IMPRESSION: Diverticulosis of the colon. Electronically Signed: Zohra Chen MD at 1:44 EDT , Rhythm Strip Rhythm Strip: Sinus Rhythm Rate: 75 Ectopy: None Management Discussion w/another healthcare provider: Hospitalist Discharge Plan Triage Chief Complaint: General Illness ED Provider: Praveen Li Dx/Rx/DC Orders Clinical Impression: Acute hyponatremia, Encephalopathy acute, Bilateral pleural effusion, Pelvic mass, Acute hypokalemia Prescriptions: No Action atorvastatin [Lipitor] 20 mg tablet 20 mg PO DAILY hydralazine 25 mg tablet 50 mg PO ONCE metoprolol tartrate 50 mg tablet 25 mg PO BID cholecalciferol (vitamin D3) 50 mcg (2,000 unit) capsule 50 mcg PO DAILY potassium chloride 10 MEQ tablet extended release 20 meq PO TID gabapentin 600 MG tablet 600 mg PO 4X/DAY aspirin 81 MG tablet 81 mg PO DAILY@0800 ascorbic acid (vitamin C) 500 MG tablet 500 mg PO DAILY omega-3 fatty acids-fish oil 1 EACH capsule,delayed release(DR/EC) 1 cap PO DAILY calcium carbonate-vitamin D3 1 TAB tablet 1 tab PO BIDCM naproxen sodium 220 MG tablet 220 mg PO Q8H PRN PRN (Reason: Pain) amlodipine 10 mg tablet 5 mg PO DAILY nitrofurantoin macrocrystal 100 mg capsule 100 mg PO BID Label Comments: TAKE 1 CAPSULE BY MOUTH TWICE DAILY Primary Care Provider: Mariana Redd Referrals: Mariana Redd MD [Primary Care Provider] - Disposition Disposition: Acute Care Hospital [facility]
--- NOTE | 2023-02-02 02:47 | PCM.HP.STD ---
HPI - General General Date of Admission: 02/02/23 Date of Service: 02/02/23 Chief Complaint: Change in mental status HPI Narrative AMAN COBURN, is a 82 F who presents to the emergency room with chief complaint of change in mental status. Onset of symptoms began last evening where according to family members patient was becoming more confused and slightly disoriented. Patient has significant past medical history of recent work-up for pelvic mass/endometrial thickening on ultrasound. Patient is scheduled to have an MRI done as an outpatient for further work-up. Patient was found to be hyponatremic with a sodium of [address] scan abdomen pelvis here was negative for acute findings and no correlating pelvic mass was seen on CT scan. Patient will be admitted to progressive care unit for correction of her sodium. Patient denies any fevers, chills but she does have nausea and vomiting that is improved since arriving to the emergency room. [facility] Medical History Chronic back pain History of COVID-19 Hyperlipidemia Hypertension Hypokalemia Post-therapeutic neuralgia Home Medications ascorbic acid (vitamin C) 500 mg tablet 500 mg PO DAILY 07/20/13 [History Last Taken Unknown] aspirin 81 mg tablet,delayed release 81 mg PO DAILY@0800 07/20/13 [History Last Taken Unknown] calcium carbonate 600 mg-vitamin D3 20 mcg (800 unit) tablet 1 tab PO BIDCM 07/20/13 [History Last Taken Unknown] gabapentin 600 mg tablet 600 mg PO 4X/DAY 07/20/13 [History Last Taken 07/25/13 08:00] naproxen sodium 220 mg tablet 220 mg PO Q8H PRN PRN Pain 07/20/13 [History Last Taken Unknown] omega-3 fatty acids-fish oil 684 mg-1,200 mg capsule,delayed release 1 cap PO DAILY 07/20/13 [History Last Taken Unknown] potassium chloride 10 mEq tablet,extended release 20 meq PO TID 07/20/13 [History Last Taken Unknown] amlodipine 10 mg tablet 5 mg PO DAILY 01/29/23 [History Last Taken Unknown] atorvastatin 20 mg tablet (Lipitor) 20 mg PO DAILY 01/29/23 [History Last Taken Unknown] cholecalciferol (vitamin D3) 50 mcg (2,000 unit) capsule 50 mcg PO DAILY 01/29/23 [History Last Taken Unknown] hydralazine 25 mg tablet 50 mg PO ONCE 01/29/23 [History Last Taken Unknown] metoprolol tartrate 50 mg tablet 25 mg PO BID 01/29/23 [History Last Taken Unknown] nitrofurantoin macrocrystal 100 mg capsule 100 mg PO BID 02/01/23 [History Last Taken Unknown] Allergy/AdvReac Type Severity Reaction Status Date / Time celecoxib [From Celebrex] Allergy Intermediate HEART RACE Verified 01/29/23 13:06 citalopram hydrobromide Allergy Intermediate HEART RACE Verified 01/29/23 13:06 [From Celexa] hydrochlorothiazide Allergy Intermediate Hives Verified 01/29/23 13:06 hydrocodone bitartrate Allergy Intermediate VOMITS Verified 01/29/23 13:06 [From Vicodin] ramipril [From Altace] Allergy Intermediate FACE Verified 01/29/23 13:06 SWELLING rofecoxib [From Vioxx] Allergy Intermediate HEART RACE Verified 01/29/23 13:06 valdecoxib [From Bextra] Allergy Intermediate HEART RACE Verified 01/29/23 13:06 amlodipine besylate Allergy Mild FACE Verified 01/29/23 13:06 [From Caduet] SWELLING atorvastatin calcium Allergy Mild FACE Verified 01/29/23 13:06 [From Caduet] SWELLING tramadol HCl [From Ultram] Allergy Mild Nausea Verified 01/29/23 13:06 citalopram [From Celexa] Allergy Unknown Verified 01/29/23 13:06 hydrocodone [From Vicodin] Allergy Unknown Verified 01/29/23 13:06 Iodinated Contrast Media Allergy Hives Verified 01/29/23 13:06 [Iodinated Contrast- Oral and IV Dye] lidocaine Allergy Unknown Verified 01/29/23 13:06 propoxyphene [From Darvon] Allergy Unknown Verified 01/29/23 13:06 clindamycin HCl AdvReac Intermediate Unknown Verified 01/29/23 13:06 [From Cleocin] clindamycin palmitate HCl AdvReac Intermediate Unknown Verified 01/29/23 13:06 [From Cleocin] clindamycin phosphate AdvReac Intermediate Unknown Verified 01/29/23 13:06 [From Cleocin] trazodone AdvReac Intermediate Nausea Verified 01/29/23 13:06 Penicillins AdvReac Mild DOES NOT Verified 01/29/23 13:06 WORK trazodone HCl [From Desyrel] AdvReac Mild Unknown Verified 01/29/23 13:06 acetaminophen AdvReac Nausea Verified 01/29/23 13:06 [From Darvocet-N 100] propoxyphene napsylate AdvReac Nausea Verified 01/29/23 13:06 [From Darvocet-N 100] Family History (Updated 01/29/23 @ 13:14 by Angelica Lebron) Father Acute lymphocytic leukemia CVA (cerebral vascular accident) Lymphoma Heart disease Grandfather Stomach cancer Aunt Breast cancer Lymphoma Surgical History S/P appendectomy S/P bilateral salpingo-oophorectomy S/P lumpectomy of breast Social History Smoking Status: Never smoker alcohol intake: never substance use type: does not use caffeine: Yes seatbelt use: always do you feel safe at home: Yes additional social history: - Justice Vital Signs Vital Signs Vital Signs: 02/01/23 20:29 02/01/23 22:51 02/01/23 22:56 Temperature 97.9 F 98.1 F Temperature Source Oral Oral Pulse Rate 78 76 Respiratory Rate 22 H 19 H Respiratory Pattern Normal Blood Pressure 127/79 H 155/93 H Blood Pressure Mean 95 113 Pulse Ox 100 97 Oxygen Delivery Method Room Air Room Air 02/02/23 00:08 02/02/23 01:11 Temperature 98.1 F Temperature Source Oral Pulse Rate 75 72 Respiratory Rate 17 14 Respiratory Pattern Blood Pressure 142/87 H 144/62 H Blood Pressure Mean 105 89 Pulse Ox 96 97 Oxygen Delivery Method Room Air Room Air Weight Weight: 146 lb 2.664 oz Body Mass Index (BMI) 26.7 Results Lab / Micro Data Result Diagrams: 02/01/23 20:35 02/01/23 20:35 Labs: Laboratory Results - last 24 hr 02/01/23 20:35: WBC 10.6, RBC 5.51 H, Hgb 16.5 H, Hct 47.1 H, MCV 85.5, MCH 29.9, MCHC 35.0, RDW Std Deviation 39.5, RDW Coeff of Rodrick 12.8, Plt Count 218, MPV 9.6, Immature Gran % (Auto) 0.400, Neut % (Auto) 85.2 H, Lymph % (Auto) 10.6 L, [place] % (Auto) 3.3, Eos % (Auto) 0.3, Baso % (Auto) 0.2, Absolute Neuts (auto) 9.0 H, Absolute Lymphs (auto) 1.12, Nucleated RBC % 0 02/01/23 20:35: Sodium 124 L, Potassium 3.0 L, Chloride 85 L, Carbon Dioxide 22.0, Anion Gap 17 H, BUN 9, Creatinine 0.80, Est GFR (MDRD) Af Amer 89, Est GFR (MDRD) Non-Af 74, BUN/Creatinine Ratio 11.3, Glucose 194 H, Calcium 9.5, Total Bilirubin 3.10 H, AST 17, ALT 26, Alkaline Phosphatase 69, Total Protein 7.7, Albumin 3.9, Globulin 3.8, Albumin/Globulin Ratio 1.0 02/02/23 00:47: Urine Color Yellow, Urine Clarity Clear, Urine pH 6.0, Ur Specific [place] 1.020, Urine Protein 30 H, Urine Glucose (UA) 250 H, Urine Ketones 150 A*, Urine Occult Blood 250 H, Urine Nitrite Negative, Urine Bilirubin Negative, Urine Urobilinogen Normal, Ur Leukocyte Esterase Negative, Urine RBC 10-25 SEEN, Urine WBC 0-5 SEEN, Ur Squamous Epith Cells 0 SEEN, Urine Bacteria 1+, Urine Mucus 0 SEEN Micro: Microbiology 02/01/23 23:10 Nasal Secretion SARS-CoV-2 & FLU Antigen (Rapid) - Final Rhythm Strip Rhythm Strip: Sinus Rhythm Rate: 75 Ectopy: None Radiology Impression Chest X-Ray 02/02/23 00:00 IMPRESSION: Subsegmental atelectases in the lung bases. Small bilateral pleural effusions. Electronically Signed: Zohra Chen MD at 0:59 EDT , Brain CT 02/02/23 23:26 IMPRESSION: Negative Brain CT without contrast. Electronically Signed: Zohra Chen MD at 0:49 EDT , Abdomen/Pelvis CT 02/02/23 23:29 IMPRESSION: Diverticulosis of the colon. Electronically Signed: Zohra Chen MD at 1:44 EDT ,
--- NOTE | 2023-02-02 02:50 | PCM.HP.STD ---
HPI - General General Date of Admission: 02/02/23 Date of Service: 02/02/23 Chief Complaint: Change in mental status HPI Narrative AMAN COBURN, is a 82 F who presents to the emergency room with chief complaint of altered mental status. Patient has significant past medical history of recent findings of pelvic ultrasound mass for which she was being worked up by Dr. Max. Patient is to have an MRI soon as an outpatient. Laboratory work-up in the emergency room was remarkable for sodium of 124, CT abdomen pelvis was negative for acute findings and no correlating pelvic mass was seen. Patient does have nausea and vomiting but no fevers or chills at present time. Patient will be admitted to progressive care unit for correction of her sodium. Once patient sodium is corrected and is more stable she can be discharged for further work-up and get her MRI completed. [facility] [place] Medical History Chronic back pain History of COVID-19 Hyperlipidemia Hypertension Hypokalemia Post-therapeutic neuralgia Home Medications ascorbic acid (vitamin C) 500 mg tablet 500 mg PO DAILY 07/20/13 [History Last Taken Unknown] aspirin 81 mg tablet,delayed release 81 mg PO DAILY@0800 07/20/13 [History Last Taken Unknown] calcium carbonate 600 mg-vitamin D3 20 mcg (800 unit) tablet 1 tab PO BIDCM 07/20/13 [History Last Taken Unknown] gabapentin 600 mg tablet 600 mg PO 4X/DAY 07/20/13 [History Last Taken 07/25/13 08:00] naproxen sodium 220 mg tablet 220 mg PO Q8H PRN PRN Pain 07/20/13 [History Last Taken Unknown] omega-3 fatty acids-fish oil 684 mg-1,200 mg capsule,delayed release 1 cap PO DAILY 07/20/13 [History Last Taken Unknown] potassium chloride 10 mEq tablet,extended release 20 meq PO TID 07/20/13 [History Last Taken Unknown] amlodipine 10 mg tablet 5 mg PO DAILY 01/29/23 [History Last Taken Unknown] atorvastatin 20 mg tablet (Lipitor) 20 mg PO DAILY 01/29/23 [History Last Taken Unknown] cholecalciferol (vitamin D3) 50 mcg (2,000 unit) capsule 50 mcg PO DAILY 01/29/23 [History Last Taken Unknown] hydralazine 25 mg tablet 50 mg PO ONCE 01/29/23 [History Last Taken Unknown] metoprolol tartrate 50 mg tablet 25 mg PO BID 01/29/23 [History Last Taken Unknown] nitrofurantoin macrocrystal 100 mg capsule 100 mg PO BID 02/01/23 [History Last Taken Unknown] Allergy/AdvReac Type Severity Reaction Status Date / Time celecoxib [From Celebrex] Allergy Intermediate HEART RACE Verified 01/29/23 13:06 citalopram hydrobromide Allergy Intermediate HEART RACE Verified 01/29/23 13:06 [From Celexa] hydrochlorothiazide Allergy Intermediate Hives Verified 01/29/23 13:06 hydrocodone bitartrate Allergy Intermediate VOMITS Verified 01/29/23 13:06 [From Vicodin] ramipril [From Altace] Allergy Intermediate FACE Verified 01/29/23 13:06 SWELLING rofecoxib [From Vioxx] Allergy Intermediate HEART RACE Verified 01/29/23 13:06 valdecoxib [From Bextra] Allergy Intermediate HEART RACE Verified 01/29/23 13:06 amlodipine besylate Allergy Mild FACE Verified 01/29/23 13:06 [From Caduet] SWELLING atorvastatin calcium Allergy Mild FACE Verified 01/29/23 13:06 [From Caduet] SWELLING tramadol HCl [From Ultram] Allergy Mild Nausea Verified 01/29/23 13:06 citalopram [From Celexa] Allergy Unknown Verified 01/29/23 13:06 hydrocodone [From Vicodin] Allergy Unknown Verified 01/29/23 13:06 Iodinated Contrast Media Allergy Hives Verified 01/29/23 13:06 [Iodinated Contrast- Oral and IV Dye] lidocaine Allergy Unknown Verified 01/29/23 13:06 propoxyphene [From Darvon] Allergy Unknown Verified 01/29/23 13:06 clindamycin HCl AdvReac Intermediate Unknown Verified 01/29/23 13:06 [From Cleocin] clindamycin palmitate HCl AdvReac Intermediate Unknown Verified 01/29/23 13:06 [From Cleocin] clindamycin phosphate AdvReac Intermediate Unknown Verified 01/29/23 13:06 [From Cleocin] trazodone AdvReac Intermediate Nausea Verified 01/29/23 13:06 Penicillins AdvReac Mild DOES NOT Verified 01/29/23 13:06 WORK trazodone HCl [From Desyrel] AdvReac Mild Unknown Verified 01/29/23 13:06 acetaminophen AdvReac Nausea Verified 01/29/23 13:06 [From Darvocet-N 100] propoxyphene napsylate AdvReac Nausea Verified 01/29/23 13:06 [From Darvocet-N 100] Family History (Updated 01/29/23 @ 13:14 by Angelica Lebron) Father Acute lymphocytic leukemia CVA (cerebral vascular accident) Lymphoma Heart disease Grandfather Stomach cancer Aunt Breast cancer Lymphoma Surgical History S/P appendectomy S/P bilateral salpingo-oophorectomy S/P lumpectomy of breast Social History Smoking Status: Never smoker alcohol intake: never substance use type: does not use caffeine: Yes seatbelt use: always do you feel safe at home: Yes additional social history: - Justice ROS Constitutional Constitutional: Reports malaise; Denies chills or fever(s) Eyes Eyes: Denies blurry vision ENT HEENT: Denies abnormal hearing Cardiovascular Cardiovascular: Denies chest pain Respiratory/Chest Respiratory/Chest: Denies cough or shortness of breath at rest Gastrointestinal Gastrointestinal: Reports nausea and vomiting; Denies abdominal pain Genitourinary Genitourinary: Denies dysuria Musculoskeletal Musculoskeletal: Denies back pain Integumentary Integumentary: Denies dry skin Neurologic Neurologic: Reports confusion Psychiatric Psychiatric: Reports anxiety Vital Signs Vital Signs Vital Signs: 02/01/23 20:29 02/01/23 22:51 02/01/23 22:56 Temperature 97.9 F 98.1 F Temperature Source Oral Oral Pulse Rate 78 76 Respiratory Rate 22 H 19 H Respiratory Pattern Normal Blood Pressure 127/79 H 155/93 H Blood Pressure Mean 95 113 Pulse Ox 100 97 Oxygen Delivery Method Room Air Room Air 02/02/23 00:08 02/02/23 01:11 Temperature 98.1 F Temperature Source Oral Pulse Rate 75 72 Respiratory Rate 17 14 Respiratory Pattern Blood Pressure 142/87 H 144/62 H Blood Pressure Mean 105 89 Pulse Ox 96 97 Oxygen Delivery Method Room Air Room Air Weight Weight: 146 lb 2.664 oz Body Mass Index (BMI) 26.7 Physical Exam Const alert General Appearance: cooperative and well developed Orientation / Consciousness: confused HEENT normocephalic and head/scalp atraumatic Neck no lymphadenopathy Lymph Lymphatic: no lymphadenopathy noted Resp normal respiratory effort, normal air movement and clear to auscultation bilaterally Cardio regular rate, regular rhythm, S1 normal heart sound and S2 normal heart sound GI normal to inspection, nondistended, normoactive bowel sounds Extremity normal capillary refill Skin General Skin Exam: no breakdown Neuro no focal motor deficits and no sensory deficits noted Psych cooperative and affect normal Appearance: appropriate Results Lab / Micro Data Result Diagrams: 02/01/23 20:35 02/01/23 20:35 Labs: Laboratory Results - last 24 hr 02/01/23 20:35: WBC 10.6, RBC 5.51 H, Hgb 16.5 H, Hct 47.1 H, MCV 85.5, MCH 29.9, MCHC 35.0, RDW Std Deviation 39.5, RDW Coeff of Rodrick 12.8, Plt Count 218, MPV 9.6, Immature Gran % (Auto) 0.400, Neut % (Auto) 85.2 H, Lymph % (Auto) 10.6 L, [place] % (Auto) 3.3, Eos % (Auto) 0.3, Baso % (Auto) 0.2, Absolute Neuts (auto) 9.0 H, Absolute Lymphs (auto) 1.12, Nucleated RBC % 0 02/01/23 20:35: Sodium 124 L, Potassium 3.0 L, Chloride 85 L, Carbon Dioxide 22.0, Anion Gap 17 H, BUN 9, Creatinine 0.80, Est GFR (MDRD) Af Amer 89, Est GFR (MDRD) Non-Af 74, BUN/Creatinine Ratio 11.3, Glucose 194 H, Calcium 9.5, Total Bilirubin 3.10 H, AST 17, ALT 26, Alkaline Phosphatase 69, Total Protein 7.7, Albumin 3.9, Globulin 3.8, Albumin/Globulin Ratio 1.0 02/02/23 00:47: Urine Color Yellow, Urine Clarity Clear, Urine pH 6.0, Ur Specific [place] 1.020, Urine Protein 30 H, Urine Glucose (UA) 250 H, Urine Ketones 150 A*, Urine Occult Blood 250 H, Urine Nitrite Negative, Urine Bilirubin Negative, Urine Urobilinogen Normal, Ur Leukocyte Esterase Negative, Urine RBC 10-25 SEEN, Urine WBC 0-5 SEEN, Ur Squamous Epith Cells 0 SEEN, Urine Bacteria 1+, Urine Mucus 0 SEEN Micro: Microbiology 02/01/23 23:10 Nasal Secretion SARS-CoV-2 & FLU Antigen (Rapid) - Final Rhythm Strip Rhythm Strip: Sinus Rhythm Rate: 75 Ectopy: None Radiology Impression Chest X-Ray 02/02/23 00:00 IMPRESSION: Subsegmental atelectases in the lung bases. Small bilateral pleural effusions. Electronically Signed: Zohra Chen MD at 0:59 EDT , Brain CT 02/02/23 23:26 IMPRESSION: Negative Brain CT without contrast. Electronically Signed: Zohra Chen MD at 0:49 EDT , Abdomen/Pelvis CT 02/02/23 23:29 IMPRESSION: Diverticulosis of the colon. Electronically Signed: Zohra Chen MD at 1:44 EDT , Assessment & Plan Assessment/Plan (1) Acute hyponatremia: (2) Bilateral pleural effusion: (3) Thickened endometrium: (4) Pelvic mass: (5) Hyperlipidemia: (6) Hypertension: (7) Hypokalemia: PLAN: Plan 1 hyponatremia?admit patient to progressive care unit, IV normal saline at a rate of 125 cc/h, repeat BMP in a.m., initiate fluid restriction of 2 L 2. Pelvic mass seen on ultrasound?this was not seen on CT scan done in the ER. Would recommend that she follow-up with her CHANNELER to get her MRI completed as outpatient 3. Bilateral pleural effusions at this time are small and relatively insignificant we will continue to monitor respiratory status 4. Hyperlipidemia?continue statin medication 5. Hypokalemia?monitor BMP 6. Hypertension?continue routine home medications 7. DVT prophylaxis?low molecular weight heparin Charges/Coding Visit Charges Inpatient E&M: 87070 Init Hosp L2
[2023-02-02] MEDS: Potassium Chloride Oral Tablet 20 MEQ 40 MEQ PO (04:45)
[2023-02-02] MEDS: 0.9% Saline Lock 10 ML Syringe IV ×5 (04:50→18:08)
--- NOTE | 2023-02-02 05:10 | EKG12_ITS ---
Test Reason : RHYTHM ? Blood Pressure : / mmHG Vent. Rate : 081 BPM Atrial Rate : 081 BPM P-R Int : 144 ms QRS Dur : 098 ms QT Int : 390 ms P-R-T Axes : 065 -11 028 degrees QTc Int : 453 ms Sinus rhythm with Premature atrial complexes Nonspecific ST abnormality Abnormal ECG When compared with ECG of 01-MAR-2009 11:20, Premature atrial complexes are now Present Left anterior fascicular block is no longer Present Confirmed by DIANA KINCAID, IVONE ([id number]), design editor TATYANA LAM ([id number]) on 02/02/2023 1:16:12 PM Referred By: DR SANCHEZ Confirmed By:SARAH ORTIZ MD
[2023-02-02] MEDS: CLARIFY ORDER 1 EACH NOTE (05:11)
[2023-02-02 06:31] LABS: Absolute Lymphocyte Count 1.17 X10^3/uL (0.83-4.51); Absolute Neutrophil Count 11.2 X10^3/uL (2.0-7.7); Basophil# 0.02 X10^3/uL; Basophil% 0.1 % (0-1); Eosinophil# 0.02 X10^3/uL; Eosinophils% 0.1 % (0-5); Hematocrit 41.7 % (37-47); Hemoglobin 14.4 g/dL (12.0-15.0); Lymphocyte # 1.17 X10^3/ul (0.83-4.51); Lymphocyte % 8.7 % (19-41); Mean Corp Hgb Conc 34.5 g/dL (32-36); Mean Corpuscular Hgb 29.7 pg (27.0-32.0); Mean Platelet Vol. 9.9 fl (6.2-12.0); Monocyte# 0.96 X10^3/uL; Monocyte% 7.2 % (0-10); NRBC Flagged by Analyzer 0 % (0-5); Neutrophil # 11.17 X10^3/uL (2.7-7.7); Neutrophil % 83.4 % (47-70); Platelet Count 203 K/mm3 (150-450); RBC Distribution Width CV 12.8 % (11.6-14.6); RBC Distribution Width SD 39.8 fl (35.1-43.9); Red Blood Count 4.85 M/mm3 (4.2-5.4); White Blood Count 13.4 K/mm3 (4.4-11.0)
[2023-02-02 06:59] LABS: Anion Gap 10 (5-15); BUN 7 mg/dL (7-18); BUN/Creat Ratio 17.9 RATIO (10-20); Calcium,Total 8.2 mg/dL (8.5-10.1); Chloride 95 mmol/L (98-107); Creatinine, Serum 0.39 mg/dL (0.55-1.02); EST Glomerular Filtration Rate 168 mL/min (>60); Est Glom Filt Rate - Afr Amer 203 mL/min (>60); Estimated Creatinine Clearance 35.49 ml/min; Glucose 137 mg/dL (74-106); Sodium Level 128 mmol/L (136-145)
[2023-02-02] MEDS: hydrALAZINE 25 MG Tablet PO ×2 (10:28→21:22)
[2023-02-02] MEDS: Enoxaparin 40 MG/0.4 ML Syringe SC (10:28)
[2023-02-02] MEDS: Metoprolol Tartrate 25 MG Tablet PO ×2 (10:28→18:08)
[2023-02-02] MEDS: Gabapentin 600 MG Tablet PO ×4 (10:28→21:22)
[2023-02-02] MEDS: amLODIPine 5 MG Tablet PO (10:31)
--- NOTE | 2023-02-02 10:50 | CASEMGMT ---
RN CM Face to Face with patient for initial transition planning/care coordination assessment. RN CM introduced self and role at [facility]. Patient lying in bed, alert and oriented. Patient willing to participate in assessment and is able to answer all questions appropriately. Care providers, pharmacy, and demographics verified. Patient wishes to discharge home, denies need for home health at this time. Patient states she has no further needs or concerns at this time. CM to follow for discharge planning needs that may arise. PCP: Ivania Specialists: Emeka, oncologist; Carrie Roche, [employer] O[employer]ER Preferred Pharmacy: [facility] retail at discharge. Insurance: [facility], [employer] Prescription Benefit: yes Living Will/HPOA: yes, Cruzito Doran LNOK: Living Arrangements: Patient lives with in a single story home with 2 steps and railing to enter the home . Patient states she is independent at home Transportation: self, DME/HHC: janelle has shower chair, grab bars, walker at home. Patient denies previous HHC or SNF Disposition Plan: Patient to discharge home with family support and follow-up plans in place. Natasha MORRISON, RN, CM
[2023-02-02 13:55] LABS: Osmolality, Serum 264 mOsm/KG (280-301)
--- NOTE | 2023-02-02 14:36 | CHAPLAIN ---
Type of Pastoral Visit _x__ Initial Visit ___ Follow-up Visit ___ On-call Visit ___ General Patient Visit ___ Spiritual Assessment ___ Family Conference ___ Bereavement ___ Rapid Response ___ Code Blue ___ Other (describe below) Pastoral Care Referral From _x__ Patient ___ Family ___ Nurse ___ Physician ___ Turnstile Attendant ___ Boom Crane Operator ___ Other (describe below) Sacrament/Intervention _x__ Active listening ___ Anointing ___ Jew ___ Bereavement ___ Communion ___ [place] exploration ___ ___ Life review ___ Prayer ___ Reconciliation ___ Sacrament of Sick _x__ Supportive presence ___ Wedding ___ Other (describe below) Pastoral Comments patient is alert and has several family members in the room with her; pt gives summary of how she came to the hospital and the experience so far; pt expresses gratitude for the good care; pt tells dry color mixer that she is feeling better and does not ask for anything at this time
[2023-02-02] MEDS: 0.9% Normal Saline 1,000 ML 75 ML IV (16:21)
[2023-02-02 16:31] LABS: Urine Sodium 18 mmol/L (Not Establ.)
--- NOTE | 2023-02-02 16:42 | CON.PCM.RE_ITS ---
Assessment & Plan Assessment/Plan (1) Hyponatremia: (2) Hypokalemia: (3) Hypertension: PLAN: Plan Impression/Plan: The patient is an 82-year-old woman with past history of hypertension, hyperlipidemia, and postherpetic neuralgia on gabapentin. The patient was admitted to the hospital on 02/01/2023 with altered mental status. She was found to have serum sodium of 124 mmol/L on presentation. Hyponatremia. The patient has hyposmotic hyponatremia. The patient was not on thiazide diuretic or SSRI prior to admission. She does not have chronic hyponatremia as serum sodium has been within normal range since 2019. She is also likely hypotonic with urine sodium of less than 20 mmol/L. Awaiting urine osmolality. At this point, I suspect hyponatremia is hypotonic from decreased solute and effective blood volume. Agree with volume expansion with isotonic saline. She is currently asymptomatic from hyponatremia, so there is no need for 3% saline. Given the rapidity of symptoms onset, however, I would be careful with raising the serum sodium too quickly. Therefore, I will check serum sodium every 6 hours for now. Goal is to increase serum sodium by no more than 10mmol/L/day. Hypokalemia. Hypokalemia may be due to GI loss as patient presented with nausea/vomiting and loose bowel movement. Replace potassium deficit and recheck potassium and magnesium levels tomorrow. Hypertension. Continue to monitor BP on current antihypertensives. Avoid using thiazide diuretics for now. HPI Consult Data Date of Consult: 02/02/23 HPI Narrative Reason for Consultation: Hyponatremia HPI Narrative: The patient is an 82-year-old woman with past history of hypertension, hyperlipidemia, and postherpetic neuralgia on gabapentin. The patient presented to the hospital on 02/01/2023 with altered mental status. During the work-up in the ED, the patient was found to have serum sodium of 124 mmol/L on presentation on 02/01/2023 at 8:35 PM. Serum sodium increased to 128 mmol/L 10 hours later on 02/02/2023 at 6 AM. Nephrology is asked to see the patient because of hyponatremia. The patient has no prior history of chronic hyponatremia. Serum sodium has been around 138 to 142 mmol/L since 2019. The patient was also hypokalemic on presentation with potassium level of 3.0 mmol/L Prior to admission, the patient was not on thiazide diuretic or SSRI. The patient tells me that she started feeling poorly on 01/31/2023. Prior to that, she had been feeling well. The patient started becoming nauseated with intermittent vomiting. She also had loose bowel movement. The patient became more foggy on 02/01/2023, and she was brought into the emergency department. She also complained of intermittent headache. She denies ataxia. The patient denies using OTC medication including NSAIDs. The only new medication she was placed on was nitrofurantoin which she started taking 10 days prior to presentation. The patient feels better today. She still has intermittent headache. She had nausea earlier today and vomited x1. Nausea has pretty much subsided by the time I saw the patient. [facility] Medical History Chronic back pain History of COVID-19 Hyperlipidemia Hypertension Hypokalemia Post-therapeutic neuralgia Home Medications ascorbic acid (vitamin C) 500 mg tablet 500 mg PO DAILY 07/20/13 [History Last Taken Unknown] aspirin 81 mg tablet,delayed release 81 mg PO DAILY@0800 07/20/13 [History Last Taken Unknown] calcium carbonate 600 mg-vitamin D3 20 mcg (800 unit) tablet 1 tab PO BIDCM [History Last Taken Unknown] gabapentin 600 mg tablet 600 mg PO 4X/DAY 07/20/13 [History Last Taken 07/25/13 08:00] naproxen sodium 220 mg tablet 220 mg PO Q8H PRN PRN Pain 07/20/13 [History Last Taken Unknown] omega-3 fatty acids-fish oil 684 mg-1,200 mg capsule,delayed release 1 cap PO DAILY Check with primary doctor 07/20/13 [History Last Taken Unknown] potassium chloride 10 mEq tablet,extended release 20 meq PO TID 07/20/13 [History Last Taken Unknown] amlodipine 10 mg tablet 5 mg PO DAILY 01/29/23 [History Last Taken Unknown] atorvastatin 20 mg tablet (Lipitor) 20 mg PO DAILY 01/29/23 [History Last Taken Unknown] cholecalciferol (vitamin D3) 50 mcg (2,000 unit) capsule 50 mcg PO DAILY 01/29/23 [History Last Taken Unknown] hydralazine 25 mg tablet 25 mg PO BID Check with primary doctor 01/29/23 [History Last Taken Unknown] metoprolol tartrate 50 mg tablet 25 mg PO BID 01/29/23 [History Last Taken Unknown] nitrofurantoin macrocrystal 100 mg capsule 100 mg PO BID 02/01/23 [History Last Taken Unknown] Allergy/AdvReac Type Severity Reaction Status Date / Time celecoxib [From Celebrex] Allergy Intermediate HEART RACE Verified 01/29/23 13:06 citalopram hydrobromide Allergy Intermediate HEART RACE Verified 01/29/23 13:06 [From Celexa] hydrochlorothiazide Allergy Intermediate Hives Verified 01/29/23 13:06 hydrocodone bitartrate Allergy Intermediate VOMITS Verified 01/29/23 13:06 [From Vicodin] ramipril [From Altace] Allergy Intermediate FACE Verified 01/29/23 13:06 SWELLING rofecoxib [From Vioxx] Allergy Intermediate HEART RACE Verified 01/29/23 13:06 valdecoxib [From Bextra] Allergy Intermediate HEART RACE Verified 01/29/23 13:06 amlodipine besylate Allergy Mild FACE Verified 01/29/23 13:06 [From Caduet] SWELLING atorvastatin calcium Allergy Mild FACE Verified 01/29/23 13:06 [From Caduet] SWELLING tramadol HCl [From Ultram] Allergy Mild Nausea Verified 01/29/23 13:06 citalopram [From Celexa] Allergy Unknown Verified 01/29/23 13:06 hydrocodone [From Vicodin] Allergy Unknown Verified 01/29/23 13:06 Iodinated Contrast Media Allergy Hives Verified 01/29/23 13:06 [Iodinated Contrast- Oral and IV Dye] lidocaine Allergy Unknown Verified 01/29/23 13:06 propoxyphene [From Darvon] Allergy Unknown Verified 01/29/23 13:06 clindamycin HCl AdvReac Intermediate Unknown Verified 01/29/23 13:06 [From Cleocin] clindamycin palmitate HCl AdvReac Intermediate Unknown Verified 01/29/23 13:06 [From Cleocin] clindamycin phosphate AdvReac Intermediate Unknown Verified 01/29/23 13:06 [From Cleocin] trazodone AdvReac Intermediate Nausea Verified 01/29/23 13:06 Penicillins AdvReac Mild DOES NOT Verified 01/29/23 13:06 WORK trazodone HCl [From Desyrel] AdvReac Mild Unknown Verified 01/29/23 13:06 acetaminophen AdvReac Nausea Verified 01/29/23 13:06 [From Darvocet-N 100] propoxyphene napsylate AdvReac Nausea Verified 01/29/23 13:06 [From Darvocet-N 100] Family History (Updated 01/29/23 @ 13:14 by Angelica Prabhu Bernardino) Father Acute lymphocytic leukemia CVA (cerebral vascular accident) Lymphoma Heart disease Grandfather Stomach cancer Aunt Breast cancer Lymphoma Surgical History S/P appendectomy S/P bilateral salpingo-oophorectomy S/P lumpectomy of breast Social History Smoking Status: Never smoker alcohol intake: never substance use type: does not use caffeine: Yes seatbelt use: always do you feel safe at home: Yes additional social history: - Justice ROMEL ROS Narrative Constitutional: There is no weight loss, fatigue, malaise or lethargy prior to 02/01/2023. HEENT: No visual change, double vision, scotomas. No rhinorrhea, epistaxis, or sinus pain. No tinnitus or hearing loss. No sore throat, odynophagia or gingival bleeding. Cardiovascular: No chest pain, shortness of breath, exercise intolerance, PND, orthopnea, edema, palpitation, or claudication. Respiratory: No cough, sputum, wheeze, hemoptysis, dyspnea, or exercise intolerance. Gastrointestinal: See HPI. No abdominal pain, dysphagia, anorexia, hematemesis, hematochezia, melena, or tenesmus. Genitourinary: No incontinence, dysuria, gross hematuria, polyuria, or hesitancy. Musculoskeletal: No stiffness, pain, joint swelling, decreased range of motion, crepitus, or functional deficit. Integumentary: No pruritus, rash, striae, wound, incision, acanthosis, tumors, or eczema. Neurological: No change in sight, smell, hearing, taste. There is no seizure, headache, numbness, poor balance, speech problem, cognitive disturbance. Psychiatric: No depression, anxiety, paranoia, anhedonia, or bradly. Endocrine: No temperature intolerance, polydipsia, polyuria, polyphagia. Hematologic: No purpura, petechia, prolonged bleeding, or blood clots. Physical Exam Narrative General: Alert and oriented x3, NAD. HEENT: Normocephalic, atraumatic. Mucous membrane moist without erythema. PERRLA, EOMI. Hearing is intact. Neck: Supple, no JVD. Trachea is midline. No thyromegaly or lymphadenopathy. Cardiovascular: Normal S1, S2. No rubs, murmurs, or gallops. Respiratory: Lungs are clear to auscultation bilaterally. No wheezing, rhonchi, or rales. Abdomen: Normal bowel sounds, soft, nontender, no guarding or rebound, no organomegaly. Extremities: No clubbing, cyanosis, or edema. Musculoskeletal: Full passive range of motion, no joint swelling. Psychiatric: Normal mood and affect. Skin: Warm and dry, no rash. Neurologic: Cranial nerve II to XII are grossly intact. No focal neurologic deficits. Lab / Micro Data Result Diagrams: 02/02/23 06:00 02/02/23 06:00 Labs: Laboratory Results - last 24 hr 02/01/23 20:35: WBC 10.6, RBC 5.51 H, Hgb 16.5 H, Hct 47.1 H, MCV 85.5, MCH 29.9, MCHC 35.0, RDW Std Deviation 39.5, RDW Coeff of Rodrick 12.8, Plt Count 218, MPV 9.6, Immature Gran % (Auto) 0.400, Neut % (Auto) 85.2 H, Lymph % (Auto) 10.6 L, [place] % (Auto) 3.3, Eos % (Auto) 0.3, Baso % (Auto) 0.2, Absolute Neuts (auto) 9.0 H, Absolute Lymphs (auto) 1.12, Nucleated RBC % 0 02/01/23 20:35: Sodium 124 L, Potassium 3.0 L, Chloride 85 L, Carbon Dioxide 22.0, Anion Gap 17 H, BUN 9, Creatinine 0.80, Est GFR (MDRD) Af Amer 89, Est GFR (MDRD) Non-Af 74, BUN/Creatinine Ratio 11.3, Glucose 194 H, Calcium 9.5, Total Bilirubin 3.10 H, AST 17, ALT 26, Alkaline Phosphatase 69, Total Protein 7.7, Albumin 3.9, Globulin 3.8, Albumin/Globulin Ratio 1.0 02/02/23 00:47: Urine Color Yellow, Urine Clarity Clear, Urine pH 6.0, Ur Specific [place] 1.020, Urine Protein 30 H, Urine Glucose (UA) 250 H, Urine Ketones 150 A*, Urine Occult Blood 250 H, Urine Nitrite Negative, Urine Bi lirubin Negative, Urine Urobilinogen Normal, Ur Leukocyte Esterase Negative, Urine RBC 10-25 SEEN, Urine WBC 0-5 SEEN, Ur Squamous Epith Cells 0 SEEN, Urine Bacteria 1+, Urine Mucus 0 SEEN 02/02/23 06:00: WBC 13.4 H, RBC 4.85, Hgb 14.4, Hct 41.7, MCV 86.0, MCH 29.7, MCHC 34.5, RDW Std Deviation 39.8, RDW Coeff of [place]rick 12.8, Plt Count 203, MPV 9.9, Immature Gran % (Auto) 0.500, Neut % (Auto) 83.4 H, Lymph % (Auto) 8.7 L, [place] % (Auto) 7.2, Eos % (Auto) 0.1, Baso % (Auto) 0.1, Absolute Neuts (auto) 11.2 H, Absolute Lymphs (auto) 1.17, Nucleated RBC % 0 02/02/23 06:00: Sodium 128 L, Potassium 3.0 L, Chloride 95 L, Carbon Dioxide 23.0, Anion Gap 10, BUN 7, Creatinine 0.39 L, Estim Creat Clear Calc 35.49, Est GFR (MDRD) Af Amer 203, Est GFR (MDRD) Non-Af 168, BUN/Creatinine Ratio 17.9, Glucose 137 H, Calcium 8.2 L 02/02/23 06:00: Serum Osmolality 264 L 02/02/23 15:20: Ur Random Sodium 18 Micro: Microbiology 02/01/23 23:10 Nasal Secretion SARS-CoV-2 & FLU Antigen (Rapid) - Final Rhythm Strip Rhythm Strip: Sinus Rhythm Rate: 75 Ectopy: None Radiology Impression Chest X-Ray 02/02/23 00:00 IMPRESSION: Subsegmental atelectases in the lung bases. Small bilateral pleural effusions. Electronically Signed: Zohra Chen MD at 0:59 EDT Reading Location ID and State: [facility] / [place] Tel , Service support , Brain CT 02/02/23 23:26 IMPRESSION: Negative Brain CT without contrast. Electronically Signed: Zohra Chen MD at 0:49 EDT Reading Location ID and State: [facility] / [place] Tel , Service support , Abdomen/Pelvis CT 02/02/23 23:29 IMPRESSION: Diverticulosis of the colon. Electronically Signed: Zohra Chen MD at 1:44 EDT Reading Location ID and State: [facility] / [place] Tel , Service support ,
[2023-02-02 16:48] LABS: Osmolality, Urine 123 mOsm/KG
--- NOTE | 2023-02-02 17:16 | EKG12_ITS ---
Test Reason : Blood Pressure : / mmHG Vent. Rate : 065 BPM Atrial Rate : 065 BPM P-R Int : 142 ms QRS Dur : 094 ms QT Int : 432 ms P-R-T Axes : 056 -31 014 degrees QTc Int : 449 ms Normal sinus rhythm Left axis deviation Abnormal ECG When compared with ECG of 02-FEB-2023 17:18, MANUAL COMPARISON REQUIRED, DATA IS UNCONFIRMED Confirmed by DIANA KINCAID, IVONE ([id number]), desk editor TATYANA LAM ([id number]) on 02/04/2023 9:48:20 AM Referred By: MERRICK Confirmed By:SARAH ORTIZ MD
--- NOTE | 2023-02-02 17:21 | PCM.HOSP.N ---
Hospitalist Note She was seen and examined today, she is alert and appropriate, I talked briefly with nephrology today and to have consulted them to help with her medical management. Patient's sodium today was 126, her potassium was 3. I ordered potassium replacement for the patient today. Late this afternoon, patient went into atrial fibrillation with a rate of approximately 130, I have ordered IV Cardizem bolus x1, IV Lanoxin x1, and increased her beta-candice and gave her an extra dose of metoprolol 25 mg. Patient may need further administration of IV metoprolol or may ultimately have to be placed on a Cardizem drip. I have ordered an echocardiogram on the patient, I talked with the patient, she is asymptomatic at the present time, she states she is felt increased heart rate as an outpatient from time to time but did not discuss this with her physician. She has no history of atrial fibrillation.
[2023-02-02] MEDS: dilTIAZem 25 MG/5 ML Vial 15 MG IV BOLUS (17:49)
[2023-02-02 17:50] LABS: Bedside Glucose 123 mg/dL (74-106)
[2023-02-02] MEDS: Digoxin 250 MCG/ML Ampul 500 MCG IV (18:08)
[2023-02-02 19:15] LABS: Sodium Level 135 mmol/L (136-145)
[2023-02-02 19:16] LABS: Magnesium 2.2 mg/dL (1.6-2.6)
[2023-02-02] MEDS: Atorvastatin Calcium 20 MG Tablet PO (21:22)
[2023-02-02] MEDS: Metoprolol Tartrate 50 MG Tablet PO (21:23)
--- NOTE | 2023-02-02 23:26 | CT_ITS ---
INDICATION: confusion EXAMINATION: CT BRAIN - CT Head or Brain W/O Contrast Injection TECHNIQUE: Multiple axial images were obtained of the head without intravenous contrast. A radiation dose optimization technique was used for this scan. IV Contrast dosage and agent: None. RADIATION DOSAGE (If Supplied By Facility): CTDIvol = ( 44.99 ) mGy, DLP = ( 812.98 ) mGycm COMPARISON: FINDINGS: BRAIN PARENCHYMA: No intra- or extra-axial hemorrhage. No evidence of acute infarct. No intracranial mass or mass effect. There is preservation of the neumann/white matter interface. Posterior fossa structures are unremarkable. CSF SPACES: Appropriate for age. No hydrocephalus. Basal cisterns are patent. CALVARIUM, SKULL BASE, PARANASAL SINUSES AND MASTOID AIR CELLS: Clear. No discrete lytic or blastic abnormalities. ORBITS: Both globes, extraocular muscles, optic nerves and retrobulbar fat appear unremarkable. ASPECTS Score for Acute Strokes: 10 CT/Brain/Head without Contrast IMPRESSION: Negative Brain CT without contrast. Electronically Signed: Zohra Chen MD at 0:49 EDT ,
--- NOTE | 2023-02-02 23:29 | CT_ITS ---
INDICATION: pain epigastric EXAMINATION: CT ABDOMEN AND PELVIS WITHOUT CONTRAST - CT Abdomen And Pelvis W/O Contrast Injection TECHNIQUE: Helically acquired images were obtained of the abdomen and pelvis without oral or IV contrast. A radiation dose optimization technique was used for this scan. IV Contrast dosage and agent: None. Oral contrast: None. RADIATION DOSAGE (If Supplied By Facility): CTDIvol = ( 9.24 ) mGy, DLP = ( 452.64 ) mGycm COMPARISON: FINDINGS: LOWER CHEST: Small bilateral pleural effusions. No cardiomegaly or pericardial effusion. LIVER: Homogeneous. No focal mass. GALLBLADDER AND BILIARY TREE: No calcified gallstones. No gallbladder distension or wall edema. No intra- or extrahepatic biliary ductal dilation. PANCREAS: No focal cystic or solid mass. SPLEEN: Normal size without focal cystic or solid mass. ADRENAL GLANDS: No nodules. KIDNEYS AND URETERS: Normal renal size and position. No hydronephrosis. PERITONEUM: No ascites or free air. No other fluid collection. BOWEL: Diverticulosis of the colon. No evidence of acute appendicitis. No stomach or bowel distension. No focal inflammatory change. LYMPH NODES: No enlarged mesenteric or retroperitoneal lymph nodes. VESSELS: Aorta is non-dilated. URINARY BLADDER: Unremarkable. REPRODUCTIVE ORGANS: No pelvic masses. ABDOMINAL WALL: No discrete abdominal or pelvic wall hernia. BONES: No lytic or blastic abnormality. CT/Abdomen/Pelvis without Cont IMPRESSION: Diverticulosis of the colon. Electronically Signed: Zohra Chen MD at 1:44 EDT ,
[2023-02-03] VITALS (8 sets, daily range): BP systolic 118–127; BP diastolic 53–79; PULSE 64–71; RESP 18; TEMP 36.7–37; O2SAT 95–97
[2023-02-03 00:57] LABS: Sodium Level 141 mmol/L (136-145)
[2023-02-03] MEDS: 0.9% Normal Saline 1,000 ML 75 ML IV (05:34)
[2023-02-03 05:54] LABS: Anion Gap 4 (5-15); BUN 8 mg/dL (7-18); BUN/Creat Ratio 14.5 RATIO (10-20); Calcium,Total 8.5 mg/dL (8.5-10.1); Chloride 111 mmol/L (98-107); Creatinine, Serum 0.55 mg/dL (0.55-1.02); EST Glomerular Filtration Rate 113 mL/min (>60); Est Glom Filt Rate - Afr Amer 136 mL/min (>60); Estimated Creatinine Clearance 35.49 ml/min; Glucose 105 mg/dL (74-106); Potassium 3.1 mmol/L (3.5-5.1); Sodium Level 141 mmol/L (136-145)
--- NOTE | 2023-02-03 05:55 | ECHOD_ITS ---
Reason For Study: A. fib/flutter Procedure This was a 2D Doppler, Color Flow transthoracic echocardiogram. Exam performed portable in patient room. Left Ventricle Normal LV size. The estimated ejection fraction is 65 %. Unable to assess diastolic dysfunction. No regional wall motion abnormalities noted. Right Ventricle Normal RV size. Normal systolic function. Atria The left atrium is mildly enlarged. Normal right atrium. No doppler evidence for ASD. Mitral Valve There is moderate mitral annular calcification. There is no mitral valve stenosis. Trivial mitral valve insufficiency. Tricuspid Valve There is no tricuspid stenosis. Trivial tricuspid valve insufficiency. Pulmonary artery systolic pressure is 35-40 mmHg. Aortic Valve Trisinus/trileaflet aortic valve. Aortic sclerosis, no stenosis. There is no aortic stenosis. No aortic valve insufficiency. Pulmonic Valve There is no pulmonic valvular stenosis. No pulmonic valve insufficiency. Great Vessels Normal aortic root. Pericardium/Pleural No pericardial effusion. MMode/2D Measurements & Calculations LVIDd: 4.3 cm IVSd: 1.1 cm Ao root diam: 2.8 cm LVIDs: 1.5 cm LVPWd: 1.0 cm RVDd: 3.4 cm FS: 65.4 % LAV(MOD-bp): 41.1 ml LVAd ap4: 18.5 cm2 LVAd ap2: 19.8 cm2 LAV(MOD-bp) Indexed: 24.8 ml/m2 LVLd ap4: 6.6 cm LVLd ap2: 6.7 cm LAV(MOD-sp2): 39.7 ml EDV(MOD-sp4): 44.8 ml EDV(MOD-sp2): 51.5 ml LAV(MOD-sp4): 39.8 ml EDV(sp4-el): 44.2 ml EDV(sp2-el): 50.0 ml LVAs ap4: 9.2 cm2 LVAs ap2: 10.0 cm2 LVLs ap4: 5.2 cm LVLs ap2: 5.7 cm ESV(MOD-sp4): 14.9 ml ESV(MOD-sp2): 15.9 ml ESV(sp4-el): 13.7 ml ESV(sp2-el): 15.0 ml EF(MOD-sp4): 66.9 % EF(MOD-sp2): 69.1 % EF(sp4-el): 68.9 % SV(MOD-sp4): 30.0 ml SV(MOD-sp2): 35.6 ml SV(sp4-el): 30.4 ml LA dimension(2D): 4.2 cm LA A4 area: 16.2 cm2 RA A4 area: 13.2 cm2 TAPSE: 2.3 cm Time Measurements MV dec time: 0.17 sec Doppler Measurements & Calculations MV E max timothy: 57.0 cm/sec Lat Peak E' Timothy: 8.4 cm/sec Med Peak E' Timothy: 7.7 cm/sec MV A max timothy: 66.7 cm/sec E/E' lat: 6.8 E/E' med: 7.4 MV E/A: 0.86 MV dec slope: 339.0 cm/sec2 Ao V2 max: 168.1 cm/sec LV V1 max: 131.5 cm/sec Ao max P.3 mmHg LV V1 max P.9 mmHg Ao V2 mean: 108.4 cm/sec LV V1 mean P.7 mmHg Ao mean P.5 mmHg LV V1 mean: 91.3 cm/sec Ao V2 VTI: 36.7 cm LV V1 VTI: 27.8 cm AV (velocity ratio): 0.76 PA V2 max: 95.3 cm/sec TR max timothy: 286.1 cm/sec TR max P.7 mmHg ECHO/Echo Complete Interpretation Summary The estimated ejection fraction is 65 %. Unable to assess diastolic dysfunction. The left atrium is mildly enlarged. Trivial mitral valve insufficiency. Ordering Physician: Rad Perez Performed By: Regina Keen RDCS
--- NOTE | 2023-02-03 08:08 | EKG12_ITS ---
Test Reason : Blood Pressure : / mmHG Vent. Rate : 138 BPM Atrial Rate : 000 BPM P-R Int : 000 ms QRS Dur : 086 ms QT Int : 266 ms P-R-T Axes : 000 -09 264 degrees QTc Int : 402 ms Atrial fibrillation with rapid ventricular response Marked ST abnormality, possible inferior subendocardial injury Abnormal ECG When compared with ECG of 02-FEB-2023 04:56, Atrial fibrillation has replaced Sinus rhythm Vent. rate has increased BY [address] more depressed Anterior leads T wave inversion now evident in Inferior leads T wave inversion now evident in Anterolateral leads Confirmed by DIANA KINCAID, IVONE ([id number]), food expeditor TATYANA LAM ([id number]) on 02/04/2023 9:50:42 AM Referred By: DUKE Confirmed By:SARAH ORTIZ MD
--- NOTE | 2023-02-03 09:41 | PCM.PN.REN ---
Subjective Subjective Following for hyponatremia. The patient feels better. There is no headache, nausea, or vomiting. There is no confusion. Objective Data Objective Data Vital Signs: Vital Signs Temp Pulse Resp BP Pulse Ox O2 Del Method 98.1 F 64 18 118/53 L 96 Room Air 02/03/23 09:40 02/03/23 09:40 02/03/23 09:40 02/03/23 09:40 02/03/23 09:40 02/03/23 09:40 Oxygen Delivery Method Room Air Weight: 65 kg Body Mass Index (BMI) 26.2 Intake & Output: Intake and Output for Last 24 Hours 02/01/23 02/02/23 02/03/23 23:59 23:59 23:59 Intake Total 1000 / 1000 1868.75 / 1868.75 991.25 / 991.25 Balance 1000 / 1000 1868.75 / 1868.75 991.25 / 991.25 Lab / Micro Data Result Diagrams: 02/02/23 06:00 02/03/23 04:48 Labs: Laboratory Results - last 24 hr 02/02/23 06:00: Serum Osmolality 264 L 02/02/23 15:20: Urine Osmolality 123, Ur Random Sodium 18 02/02/23 17:08: POC Glucose 123 H 02/02/23 19:00: Sodium 135 L 02/02/23 19:00: Magnesium 2.2 02/03/23 00:40: Sodium 141 02/03/23 04:48: Sodium 141, Potassium 3.1 L, Chloride 111 H, Carbon Dioxide 26.0, Anion Gap 4 L, BUN 8, Creatinine 0.55, Estim Creat Clear Calc 35.49, Est GFR (MDRD) Af Amer 136, Est GFR (MDRD) Non-Af 113, BUN/Creatinine Ratio 14.5, Glucose 105, Calcium 8.5 Micro: Microbiology 02/01/23 23:10 Nasal Secretion SARS-CoV-2 & FLU Antigen (Rapid) - Final Rhythm Strip Rhythm Strip: Sinus Rhythm Rate: 75 Ectopy: None Physical Exam Narrative General: Alert and oriented x3, NAD. Cardiovascular: Normal S1, S2. No rubs, murmurs, or gallops. Respiratory: Lungs are clear to auscultation bilaterally. No wheezing, rhonchi, or rales. Abdomen: Normal bowel sounds, soft, nontender, no guarding or rebound, no organomegaly. Extremities: No clubbing, cyanosis, or edema. Assessment & Plan Assessment/Plan (1) Hyponatremia: (2) Hypokalemia: (3) Hypertension: PLAN: Plan Impression/Plan: The patient is an 82-year-old woman with past history of hypertension, hyperlipidemia, and postherpetic neuralgia on gabapentin. The patient was admitted to the hospital on 02/01/2023 with altered mental status. She was found to have serum sodium of 124 mmol/L on presentation. Hyponatremia. The patient has hyposmotic hyponatremia. The patient was not on thiazide diuretic or SSRI prior to admission. She does not have chronic hyponatremia as serum sodium has been within normal range since 2019. She has hypotonic hypoosmolar hyponatremia with urine sodium of less than 20 mmol/L. Urine osmolality is 123 mOsm/kg. Therefore, the patient likely has poor oral solute intake as well. Serum sodium has normalized at a safe rate. Okay to check serum sodium once a day. She is also for discharge from my standpoint. If the patient is discharged, I would recommend checking BMP within a week. If serum hyponatremia recurs, the patient can be referred back to us as outpatient. Continue to encourage oral solute/fluid intake. Hypokalemia. Hypokalemia may be due to GI loss as patient presented with nausea/vomiting and loose bowel movement. The patient also tells me that she has a history of chronic hypokalemia and has been on potassium chloride supplementation at home. Magnesium level is normal at 2.2 mg/dL. The patient was given another dose of potassium chloride 40 mEq today. Recheck potassium level tomorrow. Hypertension. Continue to monitor BP on current antihypertensives. Avoid using thiazide diuretics. nephrology plan discussed with Dr. Perez
[2023-02-03] MEDS: Potassium Chloride Oral Tablet 20 MEQ 40 MEQ PO (09:47)
[2023-02-03] MEDS: Gabapentin 600 MG Tablet PO (09:47)
[2023-02-03] MEDS: Cholecalciferol (VIT D3) 25 MCG TABLET (1,000 UNITS) 50 MCG PO (09:48)
[2023-02-03] MEDS: amLODIPine 5 MG Tablet PO (09:48)
[2023-02-03] MEDS: Ascorbic Acid 500 MG Tablet PO (09:48)
[2023-02-03] MEDS: hydrALAZINE 25 MG Tablet PO (09:49)
[2023-02-03] MEDS: Metoprolol Tartrate 50 MG Tablet PO (09:50)
[2023-02-03] MEDS: Enoxaparin 40 MG/0.4 ML Syringe SC (09:55)
--- NOTE | 2023-02-03 11:21 | DCINST_ITS ---
Discharge Instructions Diet Discharge Diet: No restrictions Activity Discharge Activity: Return to Normal Activity Weight Bearing Status: Full weight bearing Follow Up Care Test Results: Test results from this visit will be discussed in further detail at your follow- up appointment, if applicable. Discharge Plan Admission Admit Date/Time: 02/02/23 02:57 Primary Reason for Your Visit: low sodium, atrial fibrillation Attending Provider: Rad Perez Primary Care Provider: Mariana Redd Consulting Providers: Moncho Aguiar ; Leonidas Alejandro Discharge Orders/Prescriptions Prescriptions: New Eliquis 5 mg tablet 5 mg PO BID Qty: 60 0RF Continued atorvastatin [Lipitor] 20 mg tablet 20 mg PO DAILY hydralazine 25 mg tablet 25 mg PO BID potassium chloride 10 MEQ tablet extended release 20 meq PO TID gabapentin 600 MG tablet 600 mg PO 4X/DAY aspirin 81 MG tablet 81 mg PO DAILY@0800 ascorbic acid (vitamin C) 500 MG tablet 500 mg PO DAILY amlodipine 10 mg tablet 5 mg PO DAILY nitrofurantoin macrocrystal 100 mg capsule 100 mg PO BID Label Comments: TAKE 1 CAPSULE BY MOUTH TWICE DAILY Changed metoprolol tartrate 50 mg tablet 50 mg PO BID Qty: 60 0RF Discontinued omega-3 fatty acids-fish oil 1 EACH capsule,delayed release(DR/EC) 1 cap PO DAILY naproxen sodium 220 MG tablet 220 mg PO Q8H PRN PRN (Reason: Pain) Referrals / Follow Up: Mariana Redd MD [Primary Care Provider] - 02/08/23 11:30 am (she will need to set you up for an outpatient event monitor-recommend a 30-day monitor-to monitor your heart rate) Disposition Disposition (needs filled in before D/C Order can be placed): Home, Self Care
--- NOTE | 2023-02-03 11:29 | DS.PCM_ITS ---
Providers Date of Admission: 02/02/23 Date of Discharge: 02/03/23 Primary Care Physician: Dr. Mariana Redd MD Consultations 02/02/23 11:09 Consult: Nephrology Routine Consulting Provider: Leonidas Alejandro Reason for Consult: hyponatremia EMERGENT Consult: No MD Notified: Yes Date Notified: 02/02/23 Time Notified: 11:12 Method of Notification: Answering Service Reason For Visit: HYPONATREMIA Diagnosis Discharge Diagnosis (1) Hyponatremia: Status: Inactive Code(s): E87.1 - Hypo-osmolality and hyponatremia (2) Hypokalemia: Status: Acute Code(s): E87.6 - Hypokalemia (3) Hypertension: Status: Inactive Code(s): I10 - Essential (primary) hypertension Plan 1. Hyponatremia-secondary to nausea/vomiting and loose bowel movements #2 new onset atrial fibrillation converted to sinus rhythm #3 hypokalemia #4 essential hypertension #5 mild pulmonary hypertension Medications at Discharge Home Medications ascorbic acid (vitamin C) 500 mg tablet 500 mg PO DAILY vitamin 07/20/13 aspirin 81 mg tablet,delayed release 81 mg PO DAILY@0800 heart [facility] 07/20/13 gabapentin 600 mg tablet 600 mg PO 4X/DAY nerve pain 07/20/13 potassium chloride 10 mEq tablet,extended release 20 meq PO TID supplement 07/20/13 amlodipine 10 mg tablet 5 mg PO DAILY blood pressure 01/29/23 atorvastatin 20 mg tablet (Lipitor) 20 mg PO DAILY cholesterol 01/29/23 hydralazine 25 mg tablet 25 mg PO BID blood pressure 01/29/23 nitrofurantoin macrocrystal 100 mg capsule 100 mg PO BID infection 02/01/23 apixaban 5 mg tablet (Eliquis) 5 mg PO BID #60 tabs 02/03/23 metoprolol tartrate 50 mg tablet 50 mg PO BID #60 tabs 02/03/23 Hospital Course Operations None Procedures 2-D Echocardiogram Summary of Care Provided Minutes Spent on Discharge: 31 Hospital Course: This 82-year-old white female was seen in the emergency room at [facility] with a chief complaint of mild confusion and generalized weakness. Her sodium was found to be low at 124, patient complained of some nausea and vomiting at home. CT of the abdomen was performed but showed no a cute findings. Patient was admitted to PCU, she was seen in consultation by nephrology who felt that the patient's low sodium and potassium was secondary to volume depletion from nausea/vomiting and loose stools. Patient abruptly went into atrial fibrillation during her hospital stay, initially her heart rate was controlled with rate limiting medications and then she converted to normal sinus rhythm. It was recommended that the patient go on full anticoagulation as an outpatient to follow-up with her PCP regarding this. She had an echocardiogram which showed normal EF but evidence of mild pulmonary hypertension. Patient's sodium corrected with normal saline fluid administration and she was given supplemental potassium. On 02/03/2021, patient was seen and examined: On examination she appeared in good health and spirits, she does not appear to be in any distress. Vital signs as documented. Skin warm and dry and without overt rashes. Neck without JVD, thyroid appears normal, trachea is midline, neck is supple. Lungs clear, normal air movement was noted. Heart exam notable for regular rhythm, normal sounds and absence of murmurs, rubs or gallops. Abdomen unremarkable and without evidence of organomegaly, masses, or abdominal aortic enlargement, bowel sounds are present in all 4 quadrants, no abdominal tenderness was noted. Extremities nonedematous, no cyanosis was noted, no clubbing was noted. Neuro: Cranial nerves II through XII are grossly intact, no focal motor deficits were noted, sensation to light touch and pinprick is intact, motor exam 5/5 throughout. Psych: Patient is alert and oriented x3, she does not appear anxious or depressed, she does not appear agitated. Patient was discharged home in stable condition on 02/03/2021, I talked to her PCP regarding her hospital course prior to her discharge home. Weight / BMI Weight Weight: 65 kg Body Mass Index (BMI) 26.2 ABG / Lab / Microbiology Data Result Diagrams: 02/02/23 06:00 02/03/23 04:48 Laboratory: Laboratory Results - last 24 hr 02/02/23 06:00: Serum Osmolality 264 L 02/02/23 15:20: Urine Osmolality 123, Ur Random Sodium 18 02/02/23 17:08: POC Glucose 123 H 02/02/23 19:00: Sodium 135 L 02/02/23 19:00: Magnesium 2.2 02/03/23 00:40: Sodium 141 02/03/23 04:48: Sodium 141, Potassium 3.1 L, Chloride 111 H, Carbon Dioxide 26.0, Anion Gap 4 L, BUN 8, Creatinine 0.55, Estim Creat Clear Calc 35.49, Est GFR (MDRD) Af Amer 136, Est GFR (MDRD) Non-Af 113, BUN/Creatinine Ratio 14.5, Glucose 105, Calcium 8.5 Microbiology: Microbiology 02/01/23 23:10 Nasal Secretion SARS-CoV-2 & FLU Antigen (Rapid) - Final D/C Instructions Discharge Diet: No restrictions Weight Bearing Status: Full weight bearing Meaningful Use Info Meaningful Use Diagnoses (Choose all that apply): None applicable Discharge Plan Admission Admit Date/Time: 02/02/23 02:57 Primary Reason for Your Visit: low sodium, atrial fibrillation Attending Provider: Rad Perez Primary Care Provider: Mariana Redd Consulting Providers: Moncho Aguiar ; Leonidas Alejandro Instructions Additional Instructions / Restrictions: Stop your 81 mg aspirin Discharge Orders/Prescriptions Prescriptions: New Eliquis 5 mg tablet 5 mg PO BID Qty: 60 0RF Continued atorvastatin [Lipitor] 20 mg tablet 20 mg PO DAILY hydralazine 25 mg tablet 25 mg PO BID potassium chloride 10 MEQ tablet extended release 20 meq PO TID gabapentin 600 MG tablet 600 mg PO 4X/DAY aspirin 81 MG tablet 81 mg PO DAILY@0800 ascorbic acid (vitamin C) 500 MG tablet 500 mg PO DAILY amlodipine 10 mg tablet 5 mg PO DAILY nitrofurantoin macrocrystal 100 mg capsule 100 mg PO BID Label Comments: TAKE 1 CAPSULE BY MOUTH TWICE DAILY Changed metoprolol tartrate 50 mg tablet 50 mg PO BID Qty: 60 0RF Discontinued omega-3 fatty acids-fish oil 1 EACH capsule,delayed release(DR/EC) 1 cap PO DAILY naproxen sodium 220 MG tablet 220 mg PO Q8H PRN PRN (Reason: Pain) Referrals / Follow Up: Mariana Redd MD [Primary Care Provider] - 02/08/23 11:30 am (she will need to set you up for an outpatient event monitor-recommend a 30-day monitor-to monitor your heart rate) Disposition Disposition (needs filled in before D/C Order can be placed): Home, Self Care Charges/Coding Visit Charges Inpatient E&M: 04745 Disch Hosp >30min
--- NOTE | 2023-02-03 12:14 | PHA.DC.MC ---
Pharmacy Service has performed discharge medication reconciliation and counseling for this patient. 1. APIXABAN 5MG PO BID The patient's discharge medication list was reviewed for discrepancies and discrepancies were resolved. Home Medications ascorbic acid (vitamin C) 500 mg tablet 500 mg PO DAILY vitamin 07/20/13 aspirin 81 mg tablet,delayed release 81 mg PO DAILY@0800 heart health 07/20/13 gabapentin 600 mg tablet 600 mg PO 4X/DAY nerve pain 07/20/13 potassium chloride 10 mEq tablet,extended release 20 meq PO TID supplement 07/20/13 amlodipine 10 mg tablet 5 mg PO DAILY blood pressure 01/29/23 atorvastatin 20 mg tablet (Lipitor) 20 mg PO DAILY cholesterol 01/29/23 hydralazine 25 mg tablet 25 mg PO BID blood pressure 01/29/23 nitrofurantoin macrocrystal 100 mg capsule 100 mg PO BID infection 02/01/23 apixaban 5 mg tablet (Eliquis) 5 mg PO BID #60 tabs 02/03/23 metoprolol tartrate 50 mg tablet 50 mg PO BID #60 tabs 02/03/23 The patient was counseled on the following discharge medications and changes in medications for homegoing were reviewed. The Reason for Use, instructions for use, and potential side effects were reviewed for all new medications. The patient's questions regarding all of their medications were answered. The patient was able to verbally demonstrate an understanding of their discharge medications. Patient counseled by pharmacy consultantRosie.
--- NOTE | 2023-02-03 13:42 | CASEMGMT ---
RN CM in to discuss discharge needs with patient. RN CM called [facility] retail regarding Eliquis cost. Patient's copay is $47 and Eliquis savings card applied. Patient denied further needs at this time.
== END 2023-02-03 13:45 | disposition home or self-care (01) | DRG 641 ==
LOC: ED 02-02 02:11 → PCU 02-02 03:03
PROVIDERS: Internal Medicine Nephrology; Admitting Provider Family Medicine; Emergency Provider Emergency Medicine; PCP Family Medicine; Visit Provider Internal Medicine
DX: E87.1 Hypo-osmolality and hyponatremia (principal); B02.29 Other postherpetic nervous system involvement; I27.20 Pulmonary hypertension, unspecified; I48.91 Unspecified atrial fibrillation; E87.6 Hypokalemia; I10 Essential (primary) hypertension; E78.5 Hyperlipidemia, unspecified; R11.2 Nausea with vomiting, unspecified; R19.7 Diarrhea, unspecified; Z79.82 Long term (current) use of aspirin; Z79.899 Other long term (current) drug therapy; Z86.16 Personal history of COVID-19
CPT/HCPCS: 36415; 70450; 71046; 74176; 80048; 80053; 81001; 82962; 83735; 83930; 83935; 84295; 84300; 85025; 87428; 93005; 93306; 99285; J7030; P9612; A4216; J2405

== ENCOUNTER → 2023-02-08 | Outpatient (CLI) | payer MEDICARE, OTHER, SELFPAY ==
[2023-02-08 16:23] LABS: ALB/GLOB Ratio 1.2 RATIO (0.9-2.4); AST(SGOT) 10 U/L (15-37); Alanine Aminotransfer ALT/SGPT 22 U/L (13-56); Albumin, Serum 3.7 g/dL (3.2-5.0); Alkaline Phosphatase 60 U/L (45-117); Anion Gap 8 (5-15); BUN 7 mg/dL (7-18); BUN/Creat Ratio 11.4 RATIO (10-20); Calcium,Total 9.8 mg/dL (8.5-10.1); Chloride 102 mmol/L (98-107); Creatinine, Serum 0.61 mg/dL (0.55-1.02); EST Glomerular Filtration Rate 100 mL/min (>60); Est Glom Filt Rate - Afr Amer 121 mL/min (>60); Glucose 105 mg/dL (74-106); Potassium 4.6 mmol/L (3.5-5.1); Protein, Total 6.7 g/dL (6.4-8.2); Sodium Level 142 mmol/L (136-145)
== END | disposition home or self-care (01) ==
LOC: MFPLAB 12:23
PROVIDERS: PCP Family Medicine; Visit Provider Family Medicine
DX: E86.0 Dehydration (principal)
CPT/HCPCS: 36415; 80053

== ENCOUNTER → 2023-02-24 | Outpatient (CLI) | payer MEDICARE, OTHER, SELFPAY ==
--- NOTE | 2023-02-24 11:13 | MRI_ITS ---
EXAM: MR PELVIS WITHOUT INTRAVENOUS CONTRAST CLINICAL INDICATION: complex pelvic mass TECHNIQUE: Multiplanar and multisequence MR images of the pelvis without intravenous contrast. Magnetic field strength 1.5 T. COMPARISON: CT scan of the abdomen and pelvis 02/02/2023. Ultrasound of the pelvis 01/19/2023. FINDINGS: BOWEL: Diverticulosis without diverticulitis. APPENDIX: No evidence of acute appendicitis. INTRAPERITONEAL SPACE: Unremarkable. No ascites or other fluid collection. BLADDER: Unremarkable. OVARIES: Not visualized. UTERUS/CERVIX: Small solid-appearing mass measuring 1.7 cm immediately adjacent to the left lateral fundus of the uterus. Retroverted uterus. Normal appearing endometrium. BONES/JOINTS: Unremarkable. No suspicious lytic or blastic abnormality. SOFT TISSUES: Unremarkable. No pelvic wall hernia. LYMPH NODES: Unremarkable. No enlarged lymph nodes. MRI/Pelvis (Routine) IMPRESSION: 1. Small solid-appearing mass measuring 1.7 cm immediately adjacent to the left lateral fundus of the uterus. This likely represents a small exophytic or pedunculated leiomyoma. No cystic mass identified. 2. No complex pelvic mass is identified. 3. Diverticulosis without diverticulitis. Electronically Signed: Taras Suazo MD at 0:59 EDT ,
== END | disposition home or self-care (01) ==
LOC: MRI 10:55
PROVIDERS: PCP Family Medicine; Referring Provider Obstetrics & Gynecology; Visit Provider Obstetrics & Gynecology
DX: R19.00 Intra-abdominal and pelvic swelling, mass and lump, unspecified site (principal)
CPT/HCPCS: 72195

== ENCOUNTER → 2023-04-15 | Outpatient (CLI) | payer MEDICARE, OTHER, SELFPAY ==
[2023-04-15 11:25] LABS: Anion Gap 3 (5-15); BUN 8 mg/dL (7-18); BUN/Creat Ratio 12.5 RATIO (10-20); Calcium,Total 9.5 mg/dL (8.5-10.1); Chloride 104 mmol/L (98-107); Creatinine, Serum 0.64 mg/dL (0.55-1.02); EST Glomerular Filtration Rate 95 mL/min (>60); Est Glom Filt Rate - Afr Amer 115 mL/min (>60); Glucose 99 mg/dL (74-106); Potassium 3.5 mmol/L (3.5-5.1); Sodium Level 141 mmol/L (136-145)
== END | disposition home or self-care (01) ==
LOC: LAB 09:58
PROVIDERS: PCP Family Medicine; Referring Provider Internal Medicine Cardiovascular Disease; Visit Provider Internal Medicine Cardiovascular Disease
DX: I48.91 Unspecified atrial fibrillation (principal)
CPT/HCPCS: 36415; 80048

== ENCOUNTER → 2023-07-19 | Outpatient (CLI) | payer MEDICARE, OTHER, SELFPAY ==
[2023-07-19 12:13] LABS: Absolute Lymphocyte Count 2.38 X10^3/uL (0.83-4.51); Absolute Neutrophil Count 5.6 X10^3/uL (2.0-7.7); Basophil# 0.05 X10^3/uL; Basophil% 0.6 % (0-1); Eosinophil# 0.12 X10^3/uL; Eosinophils% 1.4 % (0-5); Hematocrit 50.8 % (37-47); Hemoglobin 16.7 g/dL (12.0-15.0); Lymphocyte # 2.38 X10^3/ul (0.83-4.51); Lymphocyte % 27.7 % (19-41); Mean Corp Hgb Conc 32.9 g/dL (32-36); Mean Corpuscular Volume 91.4 fL (81-99); Mean Platelet Vol. 10.8 fl (6.2-12.0); Monocyte# 0.45 X10^3/uL; Monocyte% 5.2 % (0-10); NRBC Flagged by Analyzer 0 % (0-5); Neutrophil # 5.55 X10^3/uL (2.7-7.7); Neutrophil % 64.6 % (47-70); Platelet Count 199 K/mm3 (150-450); RBC Distribution Width SD 43.8 fl (35.1-43.9); Red Blood Count 5.56 M/mm3 (4.2-5.4); White Blood Count 8.6 K/mm3 (4.4-11.0)
[2023-07-19 12:36] LABS: AST(SGOT) 23 U/L (15-37); Alanine Aminotransfer ALT/SGPT 36 U/L (13-56); Anion Gap 5 (5-15); BUN 7 mg/dL (7-18); BUN/Creat Ratio 11.4 RATIO (10-20); Calcium,Total 9.7 mg/dL (8.5-10.1); Chloride 104 mmol/L (98-107); Cholesterol 174 mg/dL (200); Creatinine, Serum 0.62 mg/dL (0.55-1.02); EST Glomerular Filtration Rate 99 mL/min (>60); Est Glom Filt Rate - Afr Amer 120 mL/min (>60); Glucose 116 mg/dL (74-106); High Density Lipoprotein 72 mg/dL; Potassium 3.5 mmol/L (3.5-5.1); Sodium Level 141 mmol/L (136-145); Triglycerides 136 mg/dL; Very Low Density Lipoprotein 27 mg/dL (5-40)
[2023-07-19 12:40] LABS: Vitamin B12 302 pg/mL (211-911)
== END | disposition home or self-care (01) ==
LOC: MFPLAB 09:57
PROVIDERS: PCP Family Medicine; Visit Provider Family Medicine
DX: I10 Essential (primary) hypertension (principal); E78.5 Hyperlipidemia, unspecified; R35.0 Frequency of micturition; E53.8 Deficiency of other specified B group vitamins
CPT/HCPCS: 80048; 80061; 82607; 84450; 84460; 85025; 87086; 87088; 87186

== ENCOUNTER → 2023-08-27 | Outpatient (CLI) | payer MEDICARE, OTHER, SELFPAY ==
--- NOTE | 2023-08-27 15:42 | STRESSREP ---
Stress Test Report Pharmacologic myocardial perfusion stress test. 82-year-old lady with a history of chest pain Resting EKG demonstrates sinus rhythm with a rate of 89 bpm. Resting blood pressure is 112/74 mmHg. 0.4 mg of regadenoson was infused per usual protocol followed by rapid intravenous saline flush injection. Continuous EKG monitoring was performed. The maximum heart rate was 90 bpm which was 69% of max impacted heart rate the maximum workload was 1 metabolic equivalent. At rest there were no ST or T wave changes noted to suggest ischemia and at peak infusion nonspecific ST changes were noted which did not meet the criteria for ischemia. No clinical angina is noted. The final blood pressure was 110/60 mmHg. Myocardial perfusion protocol. 11.1 mCi of technetium 99m sestamibi was injected at rest. 0.4 mg of regadenoson was infused per usual protocol. At peak infusion 33.8 mCi of technetium 99m sestamibi was injected stress images were obtained stress and rest images were reconstructed and compared in the short axis vertical long and horizontal long axis. Gated images were also obtained. Perfusion SPECT analysis: Review of the stress images demonstrate normal uptake of tracer noted in all areas of the myocardium. The resting images similar demonstrated normal uptake of tracer noted in all areas of the myocardium. No areas of reversibility are noted to suggest ischemia and no previous infarct is noted. Gated SPECT analysis: The gated ejection fraction is 85%. Conclusion: Normal pharmacologic myocardial perfusion stress test. Preserved ejection fraction.
== END | disposition home or self-care (01) ==
LOC: CVS 06:46
PROVIDERS: PCP Family Medicine; Referring Provider Physician Assistant Medical; Visit Provider Physician Assistant Medical
DX: R07.9 Chest pain, unspecified (principal)
CPT/HCPCS: 78452; 93017; A9500; A4216; J2785

== ENCOUNTER → 2023-10-01 | Outpatient (CLI) | payer MEDICARE, OTHER, SELFPAY ==
--- NOTE | 2023-10-01 08:18 | BI_ITS ---
MAMMOGRAPHY - BILATERAL SCREENING REASON FOR EXAM: Female, 83 years old. Routine annual screening examination. PERTINENT HISTORY: Aunts with breast cancer. Prior bilateral excisional breast biopsy. TECHNIQUE: Digital bilateral breast mary (3D mammographic acquisition) in the CC and MLO projections. 2-D mediolateral oblique (MLO) and craniocaudad (CC) views of both breasts were obtained. CAD: Full Field Digital Mammography with Computer Added Detection was performed. COMPARISON: Comparison is made with prior study September 23, 2022 and August 19, 2021. FINDINGS: Breast Composition: There are scattered areas of fibroglandular density. There are no dominant masses or suspicious calcifications. Stable small benign-appearing bilateral axillary lymph nodes. No other significant abnormalities are identified. There has been no significant change since the prior study. BI/SCRN MAMM (CAD)W/MARY BILAT IMPRESSION: Stable bilateral screening mammogram. Yearly follow-up mammogram recommended. (A) ASSESSMENT CATEGORY: BIRADS Category 2: Benign. A letter regarding these results will be sent to the patient by the facility within 30 days. Approximately 10% of breast cancers are not detected by mammography. A normal mammogram should not delay biopsy of a clinically suspicious abnormality. [id number] Electronically Signed: Reymundo Cassidy MD at 15:03 EST ,
--- OUTSIDE RECORDS SUMMARY | 2023-10-01 08:38 | XMS RPT_ITS | CCD ---
Author Name Unknown Address [address] [place] [address] Organization [facility] Care Team Providers Care Bulk Delivery Driver Name Role Phone Kennedi Bar Unavailable Mariana Redd Unavailable Unavailable El CodiMitchellre Unavailable Unavailable [place], [place] Unavailable Unavailable Jemma Anderson Unavailable Unavailable Primary Care Provider Unavailabl e Masci DO, Moncho A Unavailable Mariana Redd Primary Care Provider [phone] Mascdelfina MICHEL Moncho A Unavailable Mariana Redd Primary Care Provider [phone] MARIANA REDD Referring Unavailable MASCIMONCHO A Attending Unavailable MASCIMONCHO A Referring Unavailable MARIANA REDD Primary Care Unavailable MARIANA REDD Primary Care Unavailable MASCI, MONCHO A Referring Unavailable MASCI, MONCHO A Attending Unavailable MASCI, MONCHO A Referring Unavailable MASCI, MONCHO A Referring Unavailable Allergies Allergy Classification Reported Allergen(s) Allergy Type Date of Onset Reaction(s) Facility (3 sources) acetaminophen / HYDROcodone; Translations: [Vicodin] drug allergy [facility] Work Phone: (3 sources) celecoxib; Translations: [CeleBREX] drug allergy [facility], [facility] Work Phone: (2 sources) penicillin v drug allergy doesnt work [facility] Work Phone: (2 sources) traMADol drug allergy heart to race [facility] Work Phone: (2 sources) traZODone drug allergy heart to race [facility] Work Phone: (2 sources) ADHESIVE PAPER drug allergy [facility] Work Phone: (1 source) Adhesive Tape; Translations: [Tape] Propensity to adverse reactions (disorder) [facility] amLODIPine / atorvastatin; Translations: [Caduet] Drug [facility] ([facility] source) citalopram; Translations: [CeleXA] Drug [facility] ([facility] source) clindamycin; Translations: [Cleocin HCl] Drug [facility] ([facility] source) Contrast media; Translations: [Contrast Dye] Propensity to adverse reactions to drug (disorder) [facility] ([facility] source) hydroCHLOROthiazi de; Translations: [hydroCHLOROthiaz ursula] Drug [facility] (7 sources) iodine; Translations: [iodine] Drug Allergy 07-24-20 Other: See [facility] Repository (1 source) lidocaine; Translations: [Lidoderm] Drug [facility] ([facility] source) Penicillins; Translations: [penicillins] Propensity to adverse reactions to drug (disorder) [facility]) propoxyphene; Translations: [Darvon] Drug All[facility] ([facility] source) ramipril; Translations: [Altace] Drug [facility] ([facility] source) rofecoxib; Translations: [Vioxx] Drug [facility] (7 sources) traMADol; Translations: [traMADol] Drug Allergy 07-24-20 Other: See [facility] Repository (7 sources) traZODone; Translations: [traZODone] Drug Allergy 07-24-20 Other: See [facility] Repository (1 source) valdecoxib; Translations: [Bextra] Drug [facility] ([facility] source) Darvocet-N 100; Translations: [Darvocet-N 100] Propensity to adverse reactions to drug (disorder) [facility] (6 sources) Acetaminophen / HYDROcodone; Translations: [HYDROCODONE-ACET AMINOPHEN] Drug Allergy 07-24-20 Unknown [facility] (6 sources) aMILoride / hydroCHLOROthiazi de; Translations: [AMILORIDE-HYDROC HLOROTHIAZIDE] Drug Allergy 07-24-20 Hives [facility] (6 sources) amLODIPine / atorvastatin; Translations: [AMLODIPINE-ATORV ASTATIN] Drug Allergy 07-24-20 Other: See Comments [facility] (6 sources) celecoxib; Translations: [CELECOXIB] Drug Allergy 07-24-20 Other: See Comments [facility] (6 sources) Propoxyphene; Translations: [PROPOXYPHENE] Drug Allergy 07-24-20 Other: See Comments [facility] (6 sources) Ramipril; Translations: [RAMIPRIL] Drug Allergy 07-24-20 Other: See Comments [facility] (6 sources) rofecoxib; Translations: [ROFECOXIB] Drug Allergy 07-24-20 Other: See Comments [facility] (6 sources) valdecoxib; Translations: [VALDECOXIB] Drug Allergy 07-24-20 Other: See Comments [facility] (6 sources) Adhesive Tape-Silicones; Translations: [ADHESIVE TAPE-SILICONES] Propensity to adverse reactions to drug 07-24-20 Other: See Comments [facility] (6 sources) Propoxyphene N-Acetaminophen; Translations: [PROPOXYPHENE N-ACETAMINOPHEN] Propensity to adverse reactions to drug 07-24-20 Other: See Comments [facility] Medications Completed/Discontinued Medications Medication Drug Class(es) Dates Sig (Normalized) Sig (Original) amLODIPine 5 mg oral tablet (7 sources) Dihydropyridine Calcium Channel Maikol Start: 06-14-2022 amLODIPine (NORVASC) 5 mg tablet 5 mg once daily. 0 06/14/2022 Active Problems Active Problems Problem Classification Problem Date Documented Date Episodic/Chronic Joint disorders and dislocations; trauma-related (2 sources) Derangement of medial meniscus; Translations: [Derangement of unspecified medial meniscus due to old tear or injury, left knee] Onset: 11-05-2015 11-05-2015 Chronic Osteoarthritis (2 sources) Osteoarthritis of knee; Translations: [Osteoarthritis of knee, unspecified] Onset: 12-17-2015 12-17-2015 Chronic Other connective tissue disease (2 sources) Synovitis of knee; Translations: [Synovitis and tenosynovitis, unspecified] Onset: 11-05-2015 11-05-2015 Chronic Other hematologic conditions (2 sources) Erythrocytosis; Translations: [Secondary polycythemia] Episodic Other hematologic conditions (1 source) Secondary polycythemia; Translations: [Polycythemia] Onset: 01-29-2023 Episodic Other liver diseases (1 source) Increased bilirubin level; Translations: [Unspecified jaundice] Episodic Past or Other Problems Problem Classification Problem Date Documented Da te Episodic/Chronic Other liver diseases (1 source) Unspecified jaundice; Translations: [Elevated bilirubin] Onset: 08-05-2022 Episodic Results Test Name Value Interpretation Reference Range Facil ity Vital Signs Date Time Vital Sign Value Performing Clinician Facility 08-05-2022 15:56-0500 Body height 157 cm Moncho Texert Work Phone: [facility] 08-05-2022 15:56-0500 Body temperature 97.7 [degF] Moncho Texert Work Phone: [facility] 08-05-2022 15:56-0500 Body weight 68.72 kg Moncho Sourcebits Phone: [facility] 08-05-2022 15:56-0500 Diastolic blood pressure 69 mm[Hg] Moncho Texert Work Phone: [facility] 08-05-2022 15:56-0500 Heart rate 67 /min Moncho Texert Work Phone: [facility] 08-05-2022 15:56-0500 SaO2% (BldA) [Mass fraction] 97 % Moncho Texert Work Phone: [facility] 08-05-2022 15:56-0500 Systolic blood pressure 146 mm[Hg] Moncho Texert Work Phone: [facility] 11-05-2015 09:00-0500 BMI (Body Mass Index) 30.98 kg/m2 Jemma [facility] Work Phone: 11-05-2015 09:00-0500 BP Diastolic 76 mm[Hg] [facility] Work Phone: 11-05-2015 09:00-0500 BP Systolic 149 mm[Hg] [facility] Work Phone: 11-05-2015 09:00-0500 Height 154.94 cm [facility] Work Phone: 11-05-2015 09:00-0500 Pulse (Heart Rate) 62 /min [facility] Work Phone: 11-05-2015 09:00-0500 [facility] 74.39 [facility] Work Phone: Encounters Encounter Date Encounter Type Care Provider Facility Start: 02-01-2023 Telephone encounter Moncho syed DO Work Phone: Hematology/Oncology Plan of Treatment Date Care Activity Detail Author Start: 08-05-2025 DIABETES SCREEN DIABETES SCREEN [facility] Start: 05-28-2023 [facility] Start: 01-29-2023 End: 03-31-2023 CBC W Auto Differential panel - Blood CBC + DIFF Lab STAT Polycythemia Expected: 01/29/2023, Expires: 03/31/2023 [facility] Work Phone: Payers Date Payer Category Payer Private Health Insurance [employer] [id number] 2013-Present [phone] [address] [place] [address] Indemnity [id number] 2013 Private Health Insurance [id number] 2007 Medicare 2007 Medicare [id number] Social History Date Type Detail Facility [facility] Start: 1940 Sex Assigned At Not on file [facility] Start: 07-24-2022 Tobacco smoking stat [facility] Never smoked tobacco [facility] Start: 07-24-2022 Tobacco use and exposure Smokeless t obacco non-user [facility] Start: 08-05-2022 Alcohol intake Lifetime non-d ramon (finding) [facility] Start: 07-26-2022 End: 08-05-2022 Exposure to SARS-CoV-2 (event) Not sure [facility] Note 02-01-2023 Telephone Encounter - Moncho Hendrickson DO - 02/01/2023 1:14 PM EDTTelephone Encounter - Samira Montana - 02/01/2023 11:17 AM EDT Note Date & Type Note Facility 02-01-2023 Miscellaneous Notes Formattin g of this note might be different from the original. Thank you. Appreciate that. Moncho Hendrickson DO Patient spouse called in and stated that he wanted to cancel Alyson's follow-up appointment for tomorrow because she is having flu symptoms. He stated he gave her a COVID-19 test and it was negative. He stated that they will call back in to reschedule when Alyson is feeling better. Samira Montana documented in this encounter [facility] Note 08-10-2022 Telephone Encounter - Victorina Garcia LPN - 08/10/2022 8:07 AM ESTTelephone Encounter - Moncho Hendrickson DO - 08/09/2022 3:56 PM EST Note Date & Type Note Facility 08-10-2022 Miscellaneous Notes Formattin g of this note might be different from the original. Pt. Notified of results, voiced understanding. Information faxed to dr. Redd office as directed. Victorina Garcia LPN Can let her know the repeat blood testing showed that her bilirubin was only very mildly elevated. It may suggest that she might have some inflammation or mild impeachment of bile flow such as a small gallstone. Recommend that she contact her PCP to discuss obtaining an ultrasound of the liver to work-up further. Please send a copy of this note along with all her lab work to her PCP. Moncho Hendrickson DO documented in this encounter [facility] Progress note 08-05-2022 Note Date & Type Note Facility 08-05-2022 Note HNO ID: [id number] Author: Moncho Hendrickson DO Service: ? Author Type: Physician Type: Progress Notes Filed: 08/05/2022 4:39 PM Note Text: Hematologic problem(s): 1) Elevated HANDH. HPI: The patient is a 81-year-old female with past medical history significant for B12 deficiency, vitamin D deficiency, hypertension, hyperlipidemia and alopecia. She has been observed to have mild increase in hemoglobin without any increase in red blood cell counts dating back to November 2017. At that time the hemoglobin was 15 g/dL. In November 2019. Hemoglobin was noted to be 15.5 g/dL with a hematocrit of 48.1%. Remainder of CBC was normal on both of those occasions. In November 2020 hemoglobin 16 g/dL with a hematocrit of 49.5%. Again remainder of CBC was normal. June 2021 the hemoglobin was 15.4 g/dL with hematocrit 46.7%. And more recently on July 13, 2022 with a hemoglobin of 16.4 g/dL with hematocrit of 49.2%. Again remainder of CBC was normal. History of smoking: None. Aquagenic pruritus: No. Erythromelalgia: Feet get red History of DVT: Post DVT 1963. ?DVT left leg after getting hit by a ball years ago. History of arterial thromboembolism: No strokes or NC. Gout: No Hypertension controlled: Yes. Diuretic therapy: No. Sleep apnea: No. Pulmonary disease: No. Gross hematuria: No. Cancer screening: Up-to-date. Post-herpetic neuralgia right mid back around abdomen--gabapentin. Presents for ongoing hematologic management. Interim history: No subjective change. She offers no complaints. PMH, medications and allergies personally reviewed by me today. Any changes documented in appropriate section. ROS: Constitutional: Denies episodes of fever and night sweats. Not significantly fatigued. Normal appetite. Neuro: Denies OLIVA, vertigo, dizziness and imbalance. HEENT: No recent change in voice, vision or hearing. Resp: Denies cough, wheeze and hemoptysis. Denies shortness of breath at rest. Periodic dyspnea. CVS: Denies exertional chest pain, PND, orthopnea and LE edema. GI: Denies dysgeusia. Denies symptoms of stomatitis. Denies dysphagia and odynophagia. Denies reflux, n/v, change in bowel habits and abdominal pain. : Denies dysuria or gross hematuria. No symptoms of bladder outlet obstruction. Endo: Denies hot flashes. Denies polyuria and polydipsia. Always cold. Musculoskeletal: Denies bone, back, joint and muscular pain. Derm: Denies rash. Denies jaundice and diffuse pruritis. Heme: Denies unusual bleeding and unexplained bruising. Psych: Normal mood. Family history: Father had CAD, NC, diabetes, lymphoma and leukemia and at age 85 1 sister in good health. Mother--dementia and hypercholesterolemia as well as diabetes. PHYSICAL EXAM: Vitals: Blood pressure 146/69, pulse 67, temperature 36.5 ?C (97.7 ?F), height 157 cm (5' 1.81 ), weight 68.7 kg (151 lb 8 oz), SpO2 97 %. Well-appearing and in no acute distress. EYES: Sclerae are anicteric bilaterally. No-conjunctival injection. RESPIRATORY: Normal respiratory excursion. CARDIOVASCULAR: Rhythm is regular. ABDOMEN: The abdomen is nondistended. Extremities: No swelling or edema. SKIN: No jaundice. LABS: Component Latest Ref Rng AND Units 07/24/2022 WBC 3.70 - 11.00 k/uL 7.38 RBC 3.90 - 5.20 m/uL 5.19 Hemoglobin 11.5 - 15.5 g/dL 15.8 (H) Hematocrit 36.0 - 46.0 % 47.1 (H) MCV 80.0 - 100.0 fL 90.8 MCH 26.0 - 34.0 pg 30.4 MCHC 30.5 - 36.0 g/dL 33.5 RDW-CV 11.5 - 15.0 % 13.4 Platelet Count 150 - 400 k/uL 210 MPV 9.0 - 12.7 fL 10.0 Neut% % 63.5 Abs Neut (ANC) 1.45 - 7.50 k/uL 4.69 Lymph% % 28.7 Abs Lymph 1.00 - 4.00 k/uL 2.12 Highland% % 4.9 Abs Highland <0.87 k/uL 0.36 Eosin% % 1.8 Abs Eosin <0.46 k/uL 0.13 Baso% % 0.8 Abs Baso <0.11 k/uL 0.06 Immature Gran % % 0.3 IMMATURE GRANS (ABS) <0.10 k/uL <0.03 Protein, Total 6.3 - 8.0 g/dL 6.9 Albumin 3.9 - 4.9 g/dL 4.8 Calcium 8.5 - 10.2 mg/dL 9.8 Bilirubin, Total 0.2 - 1.3 mg/dL 1.5 (H) Alkaline Phosphatase 34 - 123 U/L 78 AST 13 - 35 U/L 15 ALT 7 - 38 U/L 11 Glucose 74 - 99 mg/dL 115 (H) BUN 7 - 21 mg/dL 6 (L) Creatinine 0.58 - 0.96 mg/dL 0.58 Sodium 136 - 144 mmol/L 138 Potassium 3.7 - 5.1 mmol/L 4.0 Chloride 97 - 105 mmol/L 100 CO2 22 - 30 mmol/L 28 Anion Gap 9 - 18 mmol/L 10 eGFR >=60 mL/min/1.73mA? 92 Pathologist Interpretation, CBCDIF The Pathologist Interpretation on this sample was cancelled because the hematology analyzer did not flag any parameters as requiring manual review. If there is a specific clinical concern for which you would like a pathologist to review the blood smear, please call Lab Client Services within 28 days. Pathologist (SLEWYN) No review performed. Erythropoietin 2.6 - 18.5 mIU/mL 4.2 CALR - No variant detected (Reference sequence: [id number]_[id number]). JAK2 - No variant detected (Reference sequence: [id number]). MPL - No variant detected (Reference sequence: [id number]). ASSESSM (more content not included)... [facility] History of Present illness Narrative 08-05-2022 Moncho Hendrickson, DO - 08/05/2022 4:02 PM EST Note Date & Type Note Facility 08-05-2022 History of Presen t illness Narrative Hematologic problem(s): 1) Elevated H&H. HPI: The patient is a 81-year-old female with past medical history significant for B12 deficiency, vitamin D deficiency, hypertension, hyperlipidemia and alopecia. She has been observed to have mild increase in hemoglobin without any increase in red blood cell counts dating back to November 2017. At that time the hemoglobin was 15 g/dL. In November 2019. Hemoglobin was noted to be 15.5 g/dL with a hematocrit of 48.1%. Remainder of CBC was normal on both of those occasions. In November 2020 hemoglobin 16 g/dL with a hematocrit of 49.5%. Again remainder of CBC was normal. June 2021 the hemoglobin was 15.4 g/dL with hematocrit 46.7%. And more recently on July 13, 2022 with a hemoglobin of 16.4 g/dL with hematocrit of 49.2%. Again remainder of CBC was normal. History of smoking: None. Aquagenic pruritus: No. Erythromelalgia: Feet get red History of DVT: Post DVT 1963. ?DVT left leg after getting hit by a ball years ago. History of arterial thromboembolism: No strokes or NC. Gout: No Hypertension controlled: Yes. Diuretic therapy: No. Sleep apnea: No. Pulmonary disease: No. Gross hematuria: No. Cancer screening: Up-to-date. Post-herpetic neuralgia right mid back around abdomen--gabapentin. Presents for ongoing hematologic management. Interim history: No subjective change. She offers no complaints. PMH, medications and allergies personally reviewed by me today. Any changes documented in appropriate section. ROS: Constitutional: Denies episodes of fever and night sweats. Not significantly fatigued. Normal appetite. Neuro: Denies OLIVA, vertigo, dizziness and imbalance. HEENT: No recent change in voice, vision or hearing. Resp: Denies cough, wheeze and hemoptysis. Denies shortness of breath at rest. Periodic dyspnea. CVS: Denies exertional chest pain, PND, orthopnea and LE edema. GI: Denies dysgeusia. Denies symptoms of stomatitis. Denies dysphagia and odynophagia. Denies reflux, n/v, change in bowel habits and abdominal pain. : Denies dysuria or gross hematuria. No symptoms of bladder outlet obstruction. Endo: Denies hot flashes. Denies polyuria and polydipsia. Always cold. Musculoskeletal: Denies bone, back, joint and muscular pain. Derm: Denies rash. Denies jaundice and diffuse pruritis. Heme: Denies unusual bleeding and unexplained bruising. Psych: Normal mood. Family history: Father had CAD, NC, diabetes, lymphoma and leukemia and at age 85 1 sister in good health. Mother--dementia and hypercholesterolemia as well as diabetes. PHYSICAL EXAM: Vitals: Blood pressure 146/69, pulse 67, temperature 36.5 C (97.7 F), height 157 cm (5' 1.81 ), weight 68.7 kg (151 lb 8 oz), SpO2 97 %. Well-appearing and in no acute distress. EYES: Sclerae are anicteric bilaterally. No-conjunctival injection. RESPIRATORY: Normal respiratory excursion. CARDIOVASCULAR: Rhythm is regular. ABDOMEN: The abdomen is nondistended. Extremities: No swelling or edema. SKIN: No jaundice. LABS: Component Latest Ref Rng & Units 07/24/2022 WBC 3.70 - 11.00 k/uL 7.38 RBC 3.90 - 5.20 m/uL 5.19 Hemoglobin 11.5 - 15.5 g/dL 15.8 (H) Hematocrit 36.0 - 46.0 % 47.1 (H) MCV 80.0 - 100.0 fL 90.8 MCH 26.0 - 34.0 pg 30.4 MCHC 30.5 - 36.0 g/dL 33.5 RDW-CV 11.5 - 15.0 % 13.4 Platelet Count 150 - 400 k/uL 210 MPV 9.0 - 12.7 fL 10.0 Neut% % 63.5 Abs Neut (ANC) 1.45 - 7.50 k/uL 4.69 Lymph% % 28.7 Abs Lymph 1.00 - 4.00 k/uL 2.12 Highland% % 4.9 Abs Highland <0.87 k/uL 0.36 Eosin% % 1.8 Abs Eosin <0.46 k/uL 0.13 Baso% % 0.8 Abs Baso <0.11 k/uL 0.06 Immature Gran % % 0.3 IMMATURE GRANS (ABS) <0.10 k/uL <0.03 Protein, Total 6.3 - 8.0 g/dL 6.9 Albumin 3.9 - 4.9 g/dL 4.8 Calcium 8.5 - 10.2 mg/dL 9.8 Bilirubin, Total 0.2 - 1.3 mg/dL 1.5 (H) Alkaline Phosphatase 34 - 123 U/L 78 AST 13 - 35 U/L 15 ALT 7 - 38 U/L 11 Glucose 74 - 99 mg/dL 115 (H) BUN 7 - 21 mg/dL 6 (L) Creatinine 0.58 - 0.96 mg/dL 0.58 Sodium 136 - 144 mmol/L 138 Potassium 3.7 - 5.1 mmol/L 4.0 Chloride 97 - 105 mmol/L 100 CO2 22 - 30 mmol/L 28 Anion Gap 9 - 18 mmol/L 10 eGFR >=60 mL/min/1.73m 92 Pathologist Interpretation, CBCDIF The Pathologist Interpretation on this sample was cancelled because the hematology analyzer did not flag any parameters as requiring manual review. If there is a specific clinical concern for which you would like a pathologist to review the blood smear, please call Lab Client Services within 28 days. Pathologist (SELWYN) No review performed. Erythropoietin 2.6 - 18.5 mIU/mL 4.2 CALR - No variant detected (Reference sequence: [id number]). JAK2 - No variant detected (Reference sequence: [id number]). MPL - No variant detected (Reference sequence: [id number]). ASSESSMENT/PLAN: (D75.1) Polycythemia (primary encounter diagnosis) Assessment: -The patient is a 81-year-old female with past medical history as outlined above. She has had mild elevation of hemoglobin and hematocrit dating to 2012. Recent trend up. -Reviewed the lab work and molecular testing with her and her family. Serum erythropoietin low normal range. Repeat hematocrit under 48%. RBC count not elevated. -No clear evidence of polycythemia vera at this time. Recommended continued observation. -Mild increase in total bilirubin. This too has been mildly elevated on occasion dating back to 2012. Highest value was 1.4 mg/dL 04/2013. Plan: -Continue aspirin. -Check direct bilirubin and repeat CMP. -Will continue to monitor--CBC followed by office visit in about 6 months. Portions of this documentation were copied and pasted from previous office visit notes in order to provide a cohesive continuity of the history. The note has been reviewed and edited and updated as necessary. During this patient visit I have spent approximately 15 minutes out of 25 in counseling regarding test results and coordinating care. Moncho Hendrickson DO documented in this encounter [facility] Progress note 07-24-2022 Note Date & Type Note Facility 07-24-2022 Note HNO ID: [id number] Author: Moncho Hendrickson DO Service: ? Author Type: Physician Type: Progress Notes Filed: 07/24/2022 2:13 PM Note Text: Patient referred by Dr. Redd for elevated hemoglobin. The impression and plan will be communicated by way of the shared electronic record or faxed under separate cover letter. HPI: The patient is a 81-year-old female with past medical history significant for B12 deficiency, vitamin D deficiency, hypertension, hyperlipidemia and alopecia. She has been observed to have mild increase in hemoglobin without any increase in red blood cell counts dating back to November 2017. At that time the hemoglobin was 15 g/dL. In November 2019. Hemoglobin was noted to be 15.5 g/dL with a hematocrit of 48.1%. Remainder of CBC was normal on both of those occasions. In November 2020 hemoglobin 16 g/dL with a hematocrit of 49.5%. Again remainder of CBC was normal. June 2021 the hemoglobin was 15.4 g/dL with hematocrit 46.7%. And more recently on July 13, 2022 with a hemoglobin of 16.4 g/dL with hematocrit of 49.2%. Again remainder of CBC was normal. History of smoking: None. Aquagenic pruritus: No. Erythromelalgia: Feet get red History of DVT: Post DVT 1963. ?DVT left leg after getting hit by a ball years ago. History of arterial thromboembolism: No strokes or NC. Gout: No Hypertension controlled: Yes. Diuretic therapy: No. Sleep apnea: No. Pulmonary disease: No. Gross hematuria: No. Cancer screening: Up-to-date. Post-herpetic neuralgia right mid back around abdomen--gabapentin. PMH, medications and allergies personally reviewed by me today. Any changes documented in appropriate section. ROS: Constitutional: Denies episodes of fever and night sweats. Not significantly fatigued. Normal appetite. Neuro: Denies OLIVA, vertigo, dizziness and imbalance. HEENT: No recent change in voice, vision or hearing. Resp: Denies cough, wheeze and hemoptysis. Denies shortness of breath at rest. Periodic dyspnea. CVS: Denies exertional chest pain, PND, orthopnea and LE edema. GI: Denies dysgeusia. Denies symptoms of stomatitis. Denies dysphagia and odynophagia. Denies reflux, n/v, change in bowel habits and abdominal pain. : Denies dysuria or gross hematuria. No symptoms of bladder outlet obstruction. Endo: Denies hot flashes. Denies polyuria and polydipsia. Always cold. Musculoskeletal: Denies bone, back, joint and muscular pain. Derm: Denies rash. Denies jaundice and diffuse pruritis. Heme: Denies unusual bleeding and unexplained bruising. Psych: Normal mood. Family history: Father had CAD, NC, diabetes, lymphoma and leukemia and at age 85 1 sister in good health. Mother has dementia and hypercholesterolemia as well as diabetes. PHYSICAL EXAM: Vitals: Blood pressure 134/70, pulse 71, temperature 36.3 ?C (97.4 ?F), SpO2 96 %. Well-appearing and in no acute distress. EYES: Sclerae are anicteric bilaterally. No-conjunctival injection. ENT: Oral mucosa is unremarkable. There is no sign of thrush or mucositis. NECK: Supple. No enlargement of thyroid. LYMPHATIC: There is no palpable cervical, supraclavicular or axillary adenopathy. RESPIRATORY: Inspiratory breath sounds are of normal intensity in all marcano. No rales, wheezes or rhonchi. CARDIOVASCULAR: Rhythm is regular. ABDOMEN: The abdomen is nondistended. No organomegaly. No tenderness. Extremities: No swelling or edema. SKIN: No jaundice or rash. No petechiae. ASSESSMENT/PLAN: (D75.1) Polycythemia (primary encounter diagnosis) Assessment: -The patient is a 81-year-old female with past medical history as outlined above. She has had mild elevation of hemoglobin and hematocrit for several years but appears to be trending upward. She does not seem to have any conditions that would lead to hypoxemia by her history and physical exam. -Discussed the broad differential and the concepts of primary versus secondary polycythemia with the patient and her family. Further work-up indicated. Plan: -CBC, serum erythropoietin and MPN molecular panel today. -Office visit in about 2 weeks to review results and further work-up as indicated. I spent a total of 50 minutes on the date of the service which included preparing to see the patient, [id number] patient care, completing clinical documentation, obtaining and/or reviewing separately obtained history, performing a medically appropriate examination, counseling and educating the patient/family/caregiver, ordering medications, tests, or procedures, and communicating results to the patient/family/caregiver. Moncho Hendrickson, DO [facility] Note 07-16-2022 Telephone Encounter - Nadira Mosqueda - 07/16/2022 4:21 PM EDTTelephone Encounter - Samira Montana - 07/15/2022 11:24 AM EDT Note Date & Type Note Facility 07-16-2022 Miscellaneous Notes Summary: FYI PT scheduled for first available. 07/24 Nadira Mosqueda New patient referral received from for patient to be seen with for elevated red blood count. Demographics updated and information has been given to Dr.Masci Brittney's nurse, to review information. Once reviewed we will call the patient to schedule. Samira Montana documented in this encounter [facility] Evaluation note Note Date & Type Note Facility documented in this encounter [facility] note Note Date & Type Note Facility documented in this encounter [facility] Summary Purpose Family History No Family History Records FoundNo Family History Records Found Advance Directives No Advanced Directives Records FoundNo Advanced Directives Records Found Additional Source Comments INFORMATION SOURCE (unrecogn ized section and content) DATE CREATED AUTHOR AUTHOR'S ORGANIZ ATION 02/02/2023 [facility] Source Comments (unrecognize d section and content) In the event this informatio n is protected by the Federal Confidentiality of Alcohol and Drug Abuse Patient Records regulations: The Federal rules restrict any use of the information to criminally investigate or prosecute any alcohol or drug abuse patient.[facility] the event this information is protected by the Federal Confidentiality of Alcohol and Drug Abuse Patient Records regulations: The Federal rules restrict any use of the information to criminally investigate or prosecute any alcohol or drug abuse patient.[facility] the event this information is protected by the Federal Confidentiality of Alcohol and Drug Abuse Patient Records regulations: The Federal rules restrict any use of the information to criminally investigate or prosecute any alcohol or drug abuse patient.[facility] the event this information is protected by the Federal Confidentiality of Alcohol and Drug Abuse Patient Records regulations: The Federal rules restrict any use of the information to criminally investigate or prosecute any alcohol or drug abuse patient.[facility] the event this information is protected by the Federal Confidentiality of Alcohol and Drug Abuse Patient Records regulations: The Federal rules restrict any use of the information to criminally investigate or prosecute any alcohol or drug abuse patient.[facility] the event this information is protected by the Federal Confidentiality of Alcohol and Drug Abuse Patient Records regulations: The Federal rules restrict any use of the information to criminally investigate or prosecute any alcohol or drug abuse patient.[facility] Reason for Visit (unrecogniz ed section and content) Reason Comments Established Patient Reason Comments Results Reason Comments Appointment Cancelled Care Teams (unrecognized sec tion and content) Bulk Delivery Driver Relationship Specialty Start Date End Date Mariana Redd [address] [facility] [address] [place] [address] PCP - General Family Medicine 08/05/22 Moncho Hendrickson, DO [address] [place] [address] Hematology/Oncology 07/24/22 Bulk Delivery Driver Relationship Specialty Start Date End Date Mariana Redd [address] [facility] [address] [place] [address] PCP - General Family Medicine 08/05/22 Moncho Hendrickson, DO [address] [place] [address] Hematology/Oncology 07/24/22 Bulk Delivery Driver Relationship Specialty Start Date End Date Mariana Redd [address] [place], [place] [address] PCP - General Family Medicine 08/05/22 Moncho Hendrickson DO [address] [place], [place] [id number] Hematology/Oncology 07/24/22 FOR RECORDS PERTAINING TO PATIENTS WHO ARE OR HAVE BEEN ENROLLED IN A CHEMICAL DEPENDENCY/SUBSTANCEABUSE PROGRAM, SOME INFORMATION MAY BE OMITTED. This clinical summary was aggregated from multiple sources. Caution should be exercised in using it in the provision of clinical care. This summary normalizes information from multiple sources, and as a consequence, information in this document may materially change the coding, format and clinical context of patient data. In addition, data may be omitted in some cases. CLINICAL DECISIONS SHOULD BE BASED ON THE PRIMARY CLINICAL RECORDS. [facility] [employer] [facility]. provides no warranty or guarantee of the accuracy or completeness of information in this document.
== END | disposition home or self-care (01) ==
LOC: OPBI 08:17
PROVIDERS: PCP Family Medicine; Referring Provider Family Medicine; Visit Provider Family Medicine
DX: Z12.31 Encounter for screening mammogram for malignant neoplasm of breast (principal)
CPT/HCPCS: 77063; 77067

== ENCOUNTER 2024-07-17 16:11 | Emergency (ER) | payer MEDICARE, OTHER, SELFPAY ==
[2024-07-17 16:13] VITALS: BP 122/57; PULSE 62; RESP 14; TEMP 36.4; O2SAT 95; BMI 27.3
--- NOTE | 2024-07-17 16:19 | ED.VIS.FALL ---
HPI HPI - Fall History of Present Illness Chief Complaint: Fall PFSH PFSH Medical History Acute hypokalemia Acute hyponatremia Atrial fibrillation Bilateral pleural effusion Chronic back pain Encephalopathy acute History of COVID-19 Hyperlipidemia Hypertension Hypokalemia Hyponatremia Pelvic mass Post-therapeutic neuralgia Thickened endometrium Home Medications ?Medication ?Instructions ?Recorded ?Last Taken ?Type ascorbic acid (vitamin C) 500 mg 500 mg PO DAILY vitamin 07/20/13 Unknown History tablet gabapentin 600 mg tablet 600 mg PO 4X/DAY nerve pain 07/20/13 07/25/13 08:00 History atorvastatin 20 mg tablet (Lipitor) 20 mg PO DAILY cholesterol 01/29/23 Unknown History apixaban 5 mg tablet (Eliquis) 5 mg PO BID #60 tabs 02/03/23 Unknown Rx metoprolol tartrate 50 mg tablet 50 mg PO BID #60 tabs 02/03/23 Unknown Rx amlodipine 10 mg tablet 10 mg PO DAILY blood pressure #90 03/15/23 Unknown Rx tabs cholecalciferol (vitamin D3) 50 50 mcg PO DAILY 03/15/23 Unknown History mcg (2,000 unit) capsule oxycodone 5 mg tablet 5 mg PO Q8H PRN pain 4 days #16 07/17/24 Unknown Rx tabs Allergy/AdvReac Type Severity Reaction Status Date / Time celecoxib (From Celebrex) Allergy Intermediate HEART RACE Verified 01/13/24 10:18 citalopram hydrobromide Allergy Intermediate HEART RACE Verified 01/13/24 10:18 (From Celexa) hydrochlorothiazide Allergy Intermediate Hives Verified 01/13/24 10:18 hydrocodone bitartrate (From Allergy Intermediate VOMITS Verified 01/13/24 10:18 Vicodin) ramipril (From Altace) Allergy Intermediate FACE Verified 01/13/24 10:18 SWELLING rofecoxib (From Vioxx) Allergy Intermediate HEART RACE Verified 01/13/24 10:18 valdecoxib (From Bextra) Allergy Intermediate HEART RACE Verified 01/13/24 10:18 amlodipine besylate (From Allergy Mild FACE Verified 01/13/24 10:18 Caduet) SWELLING atorvastatin calcium (From Allergy Mild FACE Verified 01/13/24 10:18 Caduet) SWELLING tramadol HCl (From Ultram) Allergy Mild Nausea Verified 01/13/24 10:18 citalopram (From Celexa) Allergy Unknown Verified 01/13/24 10:18 hydrocodone (From Vicodin) Allergy Unknown Verified 01/13/24 10:18 Iodinated Contrast Media Allergy Hives Verified 01/13/24 10:18 (Iodinated Contrast- Oral and IV Dye) lidocaine Allergy Unknown Verified 01/13/24 10:18 propoxyphene (From Darvon) Allergy Unknown Verified 01/13/24 10:18 clindamycin HCl (From AdvReac Intermediate Unknown Verified 01/13/24 10:18 Cleocin) clindamycin palmitate HCl AdvReac Intermediate Unknown Verified 01/13/24 10:18 (From Cleocin) clindamycin phosphate (From AdvReac Intermediate Unknown Verified 01/13/24 10:18 Cleocin) trazodone AdvReac Intermediate Nausea Verified 01/13/24 10:18 Penicillins AdvReac Mild DOES NOT Verified 01/13/24 10:18 WORK trazodone HCl (From Desyrel) AdvReac Mild Unknown Verified 01/13/24 10:18 acetaminophen (From AdvReac Nausea Verified 01/13/24 10:18 Darvocet-N 100) propoxyphene napsylate (From AdvReac Nausea Verified 01/13/24 10:18 Darvocet-N 100) Family History Father Acute lymphocytic leukemia CVA (cerebral vascular accident) Lymphoma Heart disease Myocardial infarction Grandfather Stomach cancer Aunt Breast cancer Lymphoma Brother Heart disease CAD (coronary artery disease) Surgical History S/P appendectomy S/P bilateral salpingo-oophorectomy S/P lumpectomy of breast Social History Smoking Status: Never smoker alcohol intake: never substance use type: does not use caffeine: Yes seatbelt use: always do you feel safe at home: Yes additional social history: - Justice EXAM Physical Exam Const Vital Signs: 07/17/24 16:13 07/17/24 17:11 07/17/24 18:00 Temperature 97.6 F L Temperature Source Temporal Pulse Rate 62 78 72 Respiratory Rate 14 16 Blood Pressure 122/57 H 136/77 H 125/61 H Blood Pressure Mean 78 96 82 Pulse Ox 95 98 Oxygen Delivery Method Room Air Room Air 07/17/24 19:00 07/17/24 20:00 07/17/24 20:23 Temperature 98 F Temperature Source Pulse Rate 74 78 70 Respiratory Rate 14 16 Blood Pressure 126/63 H 126/63 H Blood Pressure Mean 84 84 Pulse Ox 99 97 Oxygen Delivery Method Room Air [facility] Narrative Medical decision making narrative: HISTORY OF PRESENT ILLNESS: 83-year-old female presents with concern for fall. She states she fell from a 12 inch step. Notes she hit her head her right shoulder. No she is on Eliquis she notes nausea and vomiting. Endorse mechanical fall for 12 and stepladder. Closed head trauma and right shoulder pain. REVIEW OF SYSTEMS: Pertinent positives: Fall, head trauma, nausea vomiting, right shoulder Pertinent negatives: Chest pain, abdominal pain, hip pain or leg pain PHYSICAL EXAM: Nursing triage notes reviewed, Vital signs reviewed Primary Survey Airway: Intact Breathing: Bilateral breath sounds Circulation: Palpable bilateral femorals, Palpable bilateral radial, Palpable bilateral DP and Palpable bilateral PT Disability / Spine precautions GCS Score: Eye Openin Verbal Response: 5 Motor Response: 6 Secondary Survey Constitutional: Please see [facility] Head: , Midface stable, NO jaw malocclusion, Eye: Pupils equal round and reactive to light, Extraocular muscles intact and No periorbital ecchymosis or stepoff, no evidence of entrapment ENT: Oropharynx clear, no lacerations, no hemotympanum, no raccoon eyes or chan sign Cervical spine / Neck: No cervical spine bony tenderness, crepitance, or stepoff deformity Trachea midline Lungs: Clear to auscultation, No asymmetric rise and No crepitus, no flail chest Cardiac: Regular rate and rhythm and No murmurs Abdomen: Soft, Nontender and No rebound Pelvis: Pelvis stable to compression : No evidence of genital injury Back: No midline bony tenderness to thoracic/lumbar/sacral spines Neuro: At baseline, intact strength and sensation in bilateral upper and lower extremities. 2+ patellar reflexes bilaterally. Extremities: Right shoulder clear deformity, TTP of right shoulder elbow and right wrist. Psych: Normal affect Nursing triage notes reviewed, Vital signs reviewed MEDICAL DECISION MAKING: Chief Complaint: Fall, head trauma, nausea vomiting, shoulder pain External records reviewed: Imaging studies reviewed: CT scan of the head reviewed from January [address] scan of the brain Factors affecting care: A-fib on Eliquis, hypertension, Social determinants of health: elderly History obtained from others: EMS Consults: Orthopedic Surgery (Dr. Licea) -discussed obtaining a third view of the shoulder to assure there is no sign of dislocation. Discussed if there is no dislocation patient be discharged with close follow-up in his office with a sling and pain medication MDM Narrative: Patient was initially hemodynamically stable, afebrile and nontoxic-appearing. Primary secondary trauma surveys concerning for the following I considered the following differential diagnosis: ICH, cervical spine injury, shoulder injury, elbow injury, wrist injury Initially treat the patient with 2 mg of IV morphine given her small size of only 60 kg, 4 mg IV Zofran given her her history of nausea vomiting with narcotics ALL IMAGES (IF OBTAINED) HAVE BEEN PERSONALLY REVIEWED AND INTERPRETED BY MYSELF. EKG with normal sinus rhythm at a rate of 69, left axis deviation, normal intervals, QTc 432, no STEMI X-ray of the right shoulder was read reviewed myself shows a proximal humerus fracture, x-ray of the right wrist and right elbow were also read reviewed person myself showed no evidence of obvious fracture dislocation. Radiologist agreed my interpretation. The third view, axillary view requested by Dr. Licea was also read reviewed myself and showed appropriate alignment of the humerus inside the glenohumeral joint. No evidence of obvious dislocation. A sling was provided. Tertiary exam was without new traumatic injuries. The patient was appropriate for discharge home with narcotic pain medications and Dr. Licea (orthopedic surgeon) follow-up. The patient and/or family, caregivers express understanding. The patient and/or family, caregivers agrees with the plan. Shared decision making: I will have a discussion with the patient and or visitors regarding risk/benefits of further testing or admission. They will be made aware of of the risk/benefits inherent in this decision they will be given the opportunity to voice understanding. Total critical care time today provided was at least 0 minutes. This excludes separately billable procedures. Critical care time (if documented) is secondary to the patient having high probability of clinically significant/life threatening deterioration in the patient's condition which required my urgent intervention. Impression: 1. Fall 2. Head trauma 3. Acute right shoulder pain 4. Proximal humerus fracture Dispo: Discharge home This note was generated with [employer] dictation software. It may contain incorrect words, spelling, and punctuation that were not noted in review of the chart prior to signing. Lab Data Labs: Laboratory Results - last 24 hr 07/17/24 16:19 WBC 8.8 RBC 4.96 Hgb 15.5 H Hct 44.0 MCV 88.7 MCH 31.3 MCHC 35.2 RDW Std Deviation 42.2 RDW Coeff of Rodrick 13.0 Plt Count 208 MPV 10.5 Immature Gran % (Auto) 0.500 Neut % (Auto) 57.1 Lymph % (Auto) 34.3 Mcleod % (Auto) 6.6 Eos % (Auto) 0.8 Baso % (Auto) 0.7 Absolute Neuts (auto) 5.0 Absolute Lymphs (auto) 3.02 Nucleated RBC % 0 Sodium 138 Potassium 2.9 L Chloride 100 Carbon Dioxide 28.0 Anion Gap 9 BUN 10 Creatinine 0.72 Estim Creat Clear Calc 49.85 Est GFR (MDRD) Af Amer 100 Est GFR (MDRD) Non-Af 83 BUN/Creatinine Ratio 13.9 Glucose 172 H Calcium 9.4 Radiography Diagnostic Testing: Clinical Impression(s) from Imaging Studies Brain CT 07/17/24 16:30 IMPRESSION: 1. No acute intracranial abnormality. 2. Senescent change with small vessel ischemia. Electronically Signed: Cristopher Rose MD at 17:40 EDT , Cervical Spine CT 07/17/24 16:30 IMPRESSION: No evidence of acute cervical spinal fracture or spondylolisthesis. Electronically Signed: Cristopher Rose MD at 17:41 EDT , Elbow X-Ray 07/17/24 16:30 IMPRESSION: Negative right elbow. Electronically Signed: Cristopher Rose MD at 17:52 EDT , Wrist X-Ray 07/17/24 16:30 IMPRESSION: Degenerative changes with narrowing of the first carpometacarpal joint. There are no acute osseous abnormalities. Electronically Signed: Cristopher Rose MD at 17:55 EDT , Shoulder X-Ray 07/17/24 17:02 IMPRESSION: Fracture of the proximal humerus. Electronically Signed: Cristopher Rose MD at 17:55 EDT , Shoulder X-Ray 07/17/24 18:50 IMPRESSION: Fracture of the proximal humerus. Electronically Signed: Cristopher Rose MD at 19:33 EDT , Discharge Plan Triage Chief Complaint: Fall ED Provider: Sandoval Funes Dx/Rx/DC Orders Clinical Impression: Fracture of proximal end of humerus Instructions: Leg or Arm Fracture, ED Fall Prevention Prescriptions: New oxycodone 5 mg tablet 5 mg PO Q8H PRN (Reason: pain) 4 Days Qty: 16 0RF No Action atorvastatin [Lipitor] 20 mg tablet 20 mg PO DAILY cholecalciferol (vitamin D3) 50 mcg (2,000 unit) capsule 50 mcg PO DAILY gabapentin 600 MG tablet 600 mg PO 4X/DAY ascorbic acid (vitamin C) 500 MG tablet 500 mg PO DAILY Eliquis 5 mg tablet 5 mg PO BID Qty: 60 0RF metoprolol tartrate 50 mg tablet 50 mg PO BID Qty: 60 0RF amlodipine 10 mg tablet 10 mg PO DAILY Qty: 90 3RF Primary Care Provider: Mariana Redd Referrals: Freddy Licea MD [Non-Staff] - Activity Restrictions/Additional Instructions: Thank you for trusting us with your care today! Your imaging of your brain and neck were negative for acute traumatic injury. Imaging of your right elbow, right wrist are also negative for acute traumatic injury. X-ray of your right shoulder was positive for humerus or arm fracture. Please take Tylenol (2 pills, 650 mg), every 6 hours as needed for pain and fever control. If does not control your pain please take oxycodone as needed. Please return to the emergency department if your symptoms change or worsen. Please follow with orthopedic surgery (Dr. Licea) at the number provided for further outpatient evaluation and management. Print Language: Italian Disposition Disposition: Home, Self Care Discharge Date/Time: 07/17/24 20:24
--- NOTE | 2024-07-17 16:30 | CT_ITS ---
EXAM: CT CERVICAL SPINE WITHOUT INTRAVENOUS CONTRAST CLINICAL INDICATION: fall, neck pain TECHNIQUE: Helically acquired images were obtained of the cervical spine without intravenous contrast. 2D reformatted images were reviewed. This CT exam was performed using one or more of the following dose reduction techniques: automated exposure control, adjustment of the mA and/or kV according to patient size, and/or use of iterative reconstruction technique. COMPARISON: No relevant prior studies available. FINDINGS: VERTEBRAE: Unremarkable. No fracture. No traumatic subluxation. No discrete lytic or blastic abnormality. Normal alignment. Normal craniocervical junction and cervicothoracic junction. DISCS/SPINAL CANAL/NEURAL FORAMINA: Unremarkable. Disc heights are preserved. No critical stenosis. SOFT TISSUES: Unremarkable. No prevertebral soft tissue swelling. LYMPH NODES: Unremarkable. No cervical adenopathy. LUNG APICES: Unremarkable as visualized. Clear. CT/Spine Cervical without Contras IMPRESSION: No evidence of acute cervical spinal fracture or spondylolisthesis. Electronically Signed: Cristopher Rose MD at 17:41 EDT ,
--- NOTE | 2024-07-17 16:30 | RAD_ITS ---
EXAM: XR RIGHT WRIST, 2 VIEWS CLINICAL INDICATION: fall TECHNIQUE: Frontal and lateral views of the right wrist. COMPARISON: No relevant prior studies available. FINDINGS: BONES/JOINTS: There is narrowing of the first carpometacarpal joint. No acute fracture. No subluxation. Normal alignment. No sclerotic or destructive changes observed. SOFT TISSUES: Unremarkable. No soft tissue swelling or gas. No radiopaque foreign body. RAD/Wrist 2 Views IMPRESSION: Degenerative changes with narrowing of the first carpometacarpal joint. There are no acute osseous abnormalities. Electronically Signed: Cristopher Rose MD at 17:55 EDT ,
--- NOTE | 2024-07-17 16:30 | CT_ITS ---
EXAM: CT HEAD WITHOUT INTRAVENOUS CONTRAST CLINICAL INDICATION: fall, head trauma on eliquis TECHNIQUE: Multiple axial images were obtained of the head without intravenous contrast. This CT exam was performed using one or more of the following dose reduction techniques: automated exposure control, adjustment of the mA and/or kV according to patient size, and/or use of iterative reconstruction technique. COMPARISON: No relevant prior studies available. FINDINGS: BRAIN AND EXTRA-AXIAL SPACES: There is mild enlargement of the sulci. There is hypoattenuation in the periventricular white matter. No intra- or extra-axial hemorrhage. No evidence of acute infarct. No intracranial mass or mass effect. There is preservation of the neumann/white matter interface. Posterior fossa structures are unremarkable. Basal cisterns are patent. BONES/JOINTS: Unremarkable. No discrete lytic or blastic abnormalities. SINUSES: Unremarkable as visualized. Clear. MASTOID AIR CELLS: Unremarkable. Clear. ORBITS: Visualized globes, extraocular muscles, optic nerves and retrobulbar fat appear unremarkable. CT/Brain/Head without Contrast IMPRESSION: 1. No acute intracranial abnormality. 2. Senescent change with small vessel ischemia. Electronically Signed: Cristopher Rose MD at 17:40 EDT ,
--- NOTE | 2024-07-17 16:30 | RAD_ITS ---
EXAM: XR RIGHT ELBOW, 2 VIEWS CLINICAL INDICATION: pain after fall TECHNIQUE: Frontal and lateral views of the right elbow. COMPARISON: No relevant prior studies available. FINDINGS: BONES/JOINTS: Unremarkable. There is no displacement of the anterior or posterior fat pads. No acute fracture. No subluxation. Normal alignment. Preservation of the joint space. No destructive or sclerotic lesions. SOFT TISSUES: Unremarkable. No soft tissue swelling or gas. No radiopaque foreign body. RAD/Elbow 2 Views IMPRESSION: Negative right elbow. Electronically Signed: Cristopher Rose MD at 17:52 EDT ,
--- NOTE | 2024-07-17 16:31 | EKG12_ITS ---
Test Reason : FALL Blood Pressure : / mmHG Vent. Rate : 069 BPM Atrial Rate : 069 BPM P-R Int : 166 ms QRS Dur : 094 ms QT Int : 404 ms P-R-T Axes : 075 -17 067 degrees QTc Int : 432 ms Normal sinus rhythm Normal ECG Confirmed by MARBELLA KINCAID, JALEEL ([id number]), editor trade journal RADHA BLACK ([id number]) on 07/19/2024 10:04:17 AM Referred By: Confirmed By:JALEEL TYSON MD
[2024-07-17] MEDS: Ondansetron 4 MG/2 ML Vial IV ×2 (16:35→19:27)
[2024-07-17] MEDS: Morphine 2 MG/ML Syringe IV (16:36)
[2024-07-17 16:51] LABS: Absolute Lymphocyte Count 3.02 X10^3/uL (0.83-4.51); Basophil# 0.06 X10^3/uL; Basophil% 0.7 % (0-1); Eosinophil# 0.07 X10^3/uL; Eosinophils% 0.8 % (0-5); Hemoglobin 15.5 g/dL (12.0-15.0); Lymphocyte # 3.02 X10^3/ul (0.83-4.51); Lymphocyte % 34.3 % (19-41); Mean Corp Hgb Conc 35.2 g/dL (32-36); Mean Corpuscular Hgb 31.3 pg (27.0-32.0); Mean Corpuscular Volume 88.7 fL (81-99); Mean Platelet Vol. 10.5 fl (6.2-12.0); Monocyte# 0.58 X10^3/uL; Monocyte% 6.6 % (0-10); NRBC Flagged by Analyzer 0 % (0-5); Neutrophil # 5.04 X10^3/uL (2.7-7.7); Neutrophil % 57.1 % (47-70); Platelet Count 208 K/mm3 (150-450); RBC Distribution Width SD 42.2 fl (35.1-43.9); Red Blood Count 4.96 M/mm3 (4.2-5.4); White Blood Count 8.8 K/mm3 (4.4-11.0)
--- NOTE | 2024-07-17 17:02 | RAD_ITS ---
EXAM: XR RIGHT SHOULDER COMPLETE, 2 OR MORE VIEWS CLINICAL INDICATION: pain after fall TECHNIQUE: Two or more views of the right shoulder. COMPARISON: No relevant prior studies available. FINDINGS: BONES/JOINTS: There is a fracture of the humeral neck. Preservation of the joint space. No sclerotic or destructive changes observed. SOFT TISSUES: Unremarkable. No soft tissue swelling or gas. No radiopaque foreign body. RAD/Shoulder min 2 Views IMPRESSION: Fracture of the proximal humerus. Electronically Signed: Cristopher Rose MD at 17:55 EDT ,
[2024-07-17 17:04] LABS: Anion Gap 9 (5-15); BUN 10 mg/dL (7-18); BUN/Creat Ratio 13.9 RATIO (10-20); Calcium,Total 9.4 mg/dL (8.5-10.1); Chloride 100 mmol/L (98-107); Creatinine, Serum 0.72 mg/dL (0.55-1.02); EST Glomerular Filtration Rate 83 mL/min (>60); Est Glom Filt Rate - Afr Amer 100 mL/min (>60); Estimated Creatinine Clearance 49.85 ml/min; Glucose 172 mg/dL (74-106); Potassium 2.9 mmol/L (3.5-5.1); Sodium Level 138 mmol/L (136-145)
[2024-07-17 17:11] VITALS: BP 136/77; PULSE 78; RESP 16; O2SAT 98
[2024-07-17 18:00] VITALS: BP 125/61; PULSE 72
--- NOTE | 2024-07-17 18:50 | RAD_ITS ---
EXAM: XR RIGHT SHOULDER, 1 VIEW CLINICAL INDICATION: shoulder pain -- axillary view TECHNIQUE: One view of the right shoulder. COMPARISON: No relevant prior studies available. FINDINGS: BONES/JOINTS: Single view of the shoulder shows a fracture of the proximal humerus. Preservation of the joint space. No sclerotic or destructive changes observed. SOFT TISSUES: Unremarkable. No soft tissue swelling or gas. No radiopaque foreign body. RAD/Shoulder One View IMPRESSION: Fracture of the proximal humerus. Electronically Signed: Cristopher Rose MD at 19:33 EDT ,
[2024-07-17 19:00] VITALS: BP 126/63; PULSE 74
[2024-07-17] MEDS: Morphine 4 MG/ML Syringe IV (19:27)
[2024-07-17] MEDS: Ketorolac 15 MG/ML Vial IV (19:27)
[2024-07-17 20:00] VITALS: PULSE 78; RESP 14; O2SAT 99
[2024-07-17 20:23] VITALS: BP 126/63; PULSE 70; RESP 16; TEMP 36.6; O2SAT 97
== END 2024-07-17 20:24 | disposition home or self-care (01) ==
PROVIDERS: Emergency Provider Emergency Medicine; PCP Family Medicine; Visit Provider Emergency Medicine
DX: S09.90XA Unspecified injury of head, initial encounter (principal); I48.91 Unspecified atrial fibrillation; I10 Essential (primary) hypertension; S42.201A Unspecified fracture of upper end of right humerus, initial encounter for closed fracture; M25.511 Pain in right shoulder; W19.XXXA Unspecified fall, initial encounter; Z79.899 Other long term (current) drug therapy; Z79.01 Long term (current) use of anticoagulants; Z86.16 Personal history of COVID-19
CPT/HCPCS: 70450; 72125; 73020; 73030; 73070; 73100; 80048; 85025; 93005; 96374; 96375; 96376; 99284; A4216; J2405

== ENCOUNTER → 2024-07-24 | Outpatient (CLI) | payer MEDICARE, OTHER, SELFPAY ==
[2024-07-24 12:48] LABS: AST(SGOT) 20 U/L (15-37); Alanine Aminotransfer ALT/SGPT 25 U/L (13-56); Anion Gap 5 (5-15); BUN 10 mg/dL (7-18); BUN/Creat Ratio 14.9 RATIO (10-20); Calcium,Total 9.6 mg/dL (8.5-10.1); Chloride 104 mmol/L (98-107); Cholesterol 137 mg/dL (200); Creatinine, Serum 0.67 mg/dL (0.55-1.02); EST Glomerular Filtration Rate 89 mL/min (>60); Est Glom Filt Rate - Afr Amer 108 mL/min (>60); Glucose 115 mg/dL (74-106); High Density Lipoprotein 64 mg/dL; Potassium 3.4 mmol/L (3.5-5.1); Sodium Level 139 mmol/L (136-145); Triglycerides 95 mg/dL; Very Low Density Lipoprotein 19 mg/dL (5-40)
== END | disposition home or self-care (01) ==
LOC: MTLAB 10:00
PROVIDERS: PCP Family Medicine; Referring Provider Family Medicine; Visit Provider Family Medicine
DX: E78.5 Hyperlipidemia, unspecified (principal); I10 Essential (primary) hypertension
CPT/HCPCS: 36415; 80048; 80061; 84443; 84450; 84460

== ENCOUNTER → 2024-07-28 | Outpatient (CLI) | payer MEDICARE, OTHER, SELFPAY ==
[2024-07-28 15:31] LABS: Hemoglobin A1c 5.4 % (3.8-5.6)
[2024-07-28 15:39] LABS: Protein, Urine (Random) 13.8 mg/dL (<11.9); Protein:Creat Ratio 353 mg/g CRE (0-200)
== END | disposition home or self-care (01) ==
LOC: MTLAB 11:42
PROVIDERS: PCP Family Medicine; Referring Provider Family Medicine; Visit Provider Family Medicine
DX: R73.09 Other abnormal glucose (principal); E78.5 Hyperlipidemia, unspecified; I10 Essential (primary) hypertension
CPT/HCPCS: 36415; 82570; 83036; 84156

== ENCOUNTER 2024-08-14 19:59 | Inpatient (IN) | payer MEDICARE, OTHER, SELFPAY ==
[2024-08-14] VITALS (23 sets, daily range): BP systolic 107–140; BP diastolic 41–66; PULSE 54–90; RESP 14–18; TEMP 36.1–36.4; O2SAT 95–98; BMI 24.5
--- NOTE | 2024-08-14 13:47 | PCM.PRE.AN2 ---
ASA Classification* ASA Classification ASA Classification: 3 Assessment & Plan Anesthesia* Anesthesia Assessment Anesthesia Assessment: Discussed sedation and/or anesthesia options, risks, benefits, and alternatives with patient/parents/legal guardian/POA. Questions invited. The patient/parents/legal guardian/POA seems to understand and agrees to proceed with anesthesia plan. Reviewed the physical assessment, medical history, allergy history and patient home medications list prior to surgery/procedure/anesthetic and documented any changes. Performed airway and anesthesia risk assessments. Anesthesia Type Anesthesia Type: General Anesthesia Focused Assessment* Temperature: 97 F Pulse Rate: 68 Blood Pressure: 140/62 Respiratory Rate: 16 Pulse Ox: 98 Airway Assessment Mouth opens: >3 cm Mallampati Score: II Focused Labs Anesthesia Preop lab: CBC WBC 8.8 K/mm3 (4.4-11.0) 07/17/24 16:19 RBC 4.96 M/mm3 (4.2-5.4) 07/17/24 16:19 Hgb 15.5 g/dL (12.0-15.0) H 07/17/24 16:19 Hct 44.0 % (37-47) 07/17/24 16:19 Plt Count 208 K/mm3 (150-450) 07/17/24 16:19 CHEMISTRY Potassium 3.4 mmol/L (3.5-5.1) L 07/24/24 10:02 Sodium 139 mmol/L (136-145) 07/24/24 10:02 Magnesium 2.2 mg/dL (1.6-2.6) 02/02/23 19:00 BUN 10 mg/dL (7-18) 07/24/24 10:02 Creatinine 0.67 mg/dL (0.55-1.02) 07/24/24 10:02 Glucose 115 mg/dL (74-106) H 07/24/24 10:02 POC Glucose 123 mg/dL (74-106) H 02/02/23 17:08 TSH 1.260 uIU/mL (0.358-3.740) 07/24/24 10:02 COAG PT 12.7 SECONDS (11.9-14.4) 07/20/13 11:56 Pre-Assessment Diagnosis/Proposed Procedure Planned Operative Procedure(s): Right proximal humerus open reduction internal fixation Anesthesia History 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 When Was Last Pacemaker Check QUESTION #4 FULL TEXT: You/Your Family Experience fever (hyperthermia) with Anesthesia Last Oral Intake Last Oral intake: Last Oral Intake NPO since 08:30 08/14/24 13:42 Meds taken in AM with sips of Yes 08/14/24 13:42 water? Meds patient instructed to take am of surgery PONV PONV - numerical control tool programmer: PONV - numerical control tool programmer Female Yes 08/11/24 11:21 HX of Motion Sickness Yes 08/11/24 11:21 HX of N/V After Surgery Yes 08/11/24 11:21 Non-Smoker Yes 08/11/24 11:21 Duration of Surgery greater Yes 08/11/24 11:21 than 60 minutes Number of Risk Factors 5 08/11/24 11:21 PONV Score Severe Risk 08/11/24 11:21 Height & Weight Height & Weight: Anesthesia: Height & Weight Height 5 ft 1 in 08/14/24 13:42 Weight: 59 kg 08/14/24 13:42 Body Mass Index (BMI) 24.5 08/14/24 13:42 Respiratory Assessment Respiratory Assessment - numerical control tool programmer: Respiratory Tract Infection Hx - numerical control tool programmer Hx Respiratory Tract Infection No 08/11/24 11:21 STOP Sleep Apnea STOP Sleep Apnea - numerical control tool programmer: STOP Sleep Apnea - numerical control tool programmer Hx Hypertension Yes: CONTROLLED ON MED 08/11/24 11:21 Hx Sleep Apnea No 08/11/24 11:21 CPAP BIPAP Do you snore loudly (louder No 08/11/24 11:21 than talking or can be heard Do you often feel tired/ No 08/11/24 11:21 fatigued/ sleepy during daytime? Has anyone observed you stop No 08/11/24 11:21 breathing during sleep? STOP Results Negative 08/11/24 11:21 QUESTION #5 FULL TEXT : Do you snore loudly (louder than talking or can be heard through closed doors)? 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 Specify any problems Hx of Preganancy in last 3 No 08/11/24 11:21 Months Nurse Filling Out Transfusion VCHRISTIN 08/11/24 11:21 & Questions: Date: 08/11/24 08/11/24 11:21 Time: 11:23 08/11/24 11:21 Patient unable to answer at this time (ie. confused, unrespo /Reproduction History /Reproductive History - numerical control tool programmer: /Reproductive Hx- numerical control tool programmer Hx Now No 08/11/24 11:21 Gestational Age (in weeks): EDC: Hx Hx Para Hx Section SAB No 08/11/24 11:21 Active Medications Active Medications: Current Medications Generic Name Dose Route Start Last Admin Trade Name Freq PRN Reason Stop Dose Admin Cefazolin Sodium 2 gm/ N/A 20 mls @ 400 mls/hr 08/14/24 14:45 IV 08/14/24 14:47 PREOP ONE Lactated Ringer's 1,000 mls @ 15 mls/hr 08/14/24 13:45 IV 08/20/24 03:04 .Q48H MOLLY Protocol PFSH Medical History Wears dentures Wears glasses Post-menopausal Arthritis High cholesterol DVT (deep venous thrombosis) Back pain History of diverticulitis Shortness of breath on exertion History of echocardiogram History of stress test Cardiology follow-up encounter Atrial fibrillation Hyponatremia Acute hypokalemia Bilateral pleural effusion Encephalopathy acute Acute hyponatremia Thickened endometrium Pelvic mass History of COVID-19 Chronic back pain Post-therapeutic neuralgia Hypokalemia Hypertension Hyperlipidemia Home Medications ?Medication ?Instructions ?Recorded ?Last Taken ?Type ascorbic acid (vitamin C) 500 mg 500 mg PO DAILY vitamin 07/20/13 Unknown History tablet gabapentin 600 mg tablet 600 mg PO 4X/DAY nerve pain 07/20/13 08/14/24 History atorvastatin 20 mg tablet (Lipitor) 20 mg PO DAILY cholesterol 01/29/23 Unknown History apixaban 5 mg tablet (Eliquis) 5 mg PO BID #60 tabs 02/03/23 08/11/24 Rx metoprolol tartrate 50 mg tablet 50 mg PO BID #60 tabs 02/03/23 08/14/24 Rx amlodipine 10 mg tablet 10 mg PO DAILY blood pressure #90 03/15/23 08/14/24 Rx tabs cholecalciferol (vitamin D3) 50 50 mcg PO DAILY 03/15/23 Unknown History mcg (2,000 unit) capsule acetaminophen 650 mg 650 mg PO Q12H 07/21/24 Unknown History tablet,extended release (Tylenol Arthritis Pain) Allergy/AdvReac Type Severity Reaction Status Date / Time celecoxib (From Celebrex) Allergy Intermediate HEART RACE Verified 08/11/24 11:01 citalopram hydrobromide Allergy Intermediate HEART RACE Verified 08/11/24 11:01 (From Celexa) hydrochlorothiazide Allergy Intermediate Hives Verified 08/11/24 11:01 hydrocodone bitartrate (From Allergy Intermediate VOMITS Verified 08/11/24 11:01 Vicodin) ramipril (From Altace) Allergy Intermediate FACE Verified 08/11/24 11:01 SWELLING rofecoxib (From Vioxx) Allergy Intermediate HEART RACE Verified 08/11/24 11:01 valdecoxib (From Bextra) Allergy Intermediate HEART RACE Verified 08/11/24 11:01 amlodipine besylate (From Allergy Mild FACE Verified 08/11/24 11:01 Caduet) SWELLING atorvastatin calcium (From Allergy Mild FACE Verified 08/11/24 11:01 Caduet) SWELLING tramadol HCl (From Ultram) Allergy Mild Nausea Verified 08/11/24 11:01 citalopram (From Celexa) Allergy Unknown Verified 08/11/24 11:01 hydrocodone (From Vicodin) Allergy Unknown Verified 08/11/24 11:01 Iodinated Contrast Media Allergy Hives Verified 08/11/24 11:01 (Iodinated Contrast- Oral and IV Dye) lidocaine Allergy Unknown Verified 08/11/24 11:01 propoxyphene (From Darvon) Allergy Unknown Verified 08/11/24 11:01 clindamycin HCl (From AdvReac Intermediate Unknown Verified 08/11/24 11:01 Cleocin) clindamycin palmitate HCl AdvReac Intermediate Unknown Verified 08/11/24 11:01 (From Cleocin) clindamycin phosphate (From AdvReac Intermediate Unknown Verified 08/11/24 11:01 Cleocin) trazodone AdvReac Intermediate Nausea Verified 08/11/24 11:01 Penicillins AdvReac Mild DOES NOT Verified 08/11/24 11:01 WORK trazodone HCl (From Desyrel) AdvReac Mild Unknown Verified 08/11/24 11:01 acetaminophen (From AdvReac Nausea Verified 08/11/24 11:01 Darvocet-N 100) propoxyphene napsylate (From AdvReac Nausea Verified 08/11/24 11:01 Darvocet-N 100) Family History Father Acute lymphocytic leukemia CVA (cerebral vascular accident) Lymphoma Heart disease Myocardial infarction Grandfather Stomach cancer Aunt Breast cancer Lymphoma Brother Heart disease CAD (coronary artery disease) Surgical History Hx of bilateral cataract extraction S/P bilateral salpingo-oophorectomy S/P appendectomy S/P lumpectomy of breast Social History Smoking Status: Never smoker alcohol intake: never substance use type: does not use caffeine: Yes seatbelt use: always do you feel safe at home: Yes additional social history: - Justice Review of Systems (Anesthesia) ROS Narrative System reviewed and no additional complaints, except as documented.
[2024-08-14] MEDS: Lactated Ringers 1,000 ML 15 ML IV (13:48)
--- NOTE | 2024-08-14 13:59 | PCM.HP.STD ---
HPI - General HPI Narrative AMAN COBURN, is a 83 F who presents for right proximal humerus ORIF (humeral nail). no changes to h and p. ok to proceed. right shoulder marked. rab, post op instructions and narcotic counselling. no further concerns. dr dangelo to see. MR#: [id number] Acct: [id number] Name: AMAN COBURN Rep #: [id number] : 1940 Provider: Dr. Dillon Sam MD Age/Sex: 83/F Location: [facility] [place] Status: Signed Intake Vital Signs 07/21/2409:46 Height 5 ft 2 in Intake Visit Reasons: RIGHT SHOULDER Accompanied by: Other Family Is patient in pain?: Yes Pain scale (1-10): 7 Allergies celecoxib (From Celebrex) Allergy (Intermediate, Verified 08/10/24 10:03) HEART RACEcitalopram hydrobromide (From Celexa) Allergy (Intermediate, Verified 08/10/24 10:03) HEART RACEhydrochlorothiazide Allergy (Intermediate, Verified 08/10/24 10:03) Hiveshydrocodone bitartrate (From Vicodin) Allergy (Intermediate, Verified 08/10/24 10:03) VOMITSramipril (From Altace) Allergy (Intermediate, Verified 08/10/24 10:03) FACE SWELLINGrofecoxib (From Vioxx) Allergy (Intermediate, Verified 08/10/24 10:03) HEART RACEvaldecoxib (From Bextra) Allergy (Intermediate, Verified 08/10/24 10:03) HEART RACEamlodipine besylate (From Caduet) Allergy (Mild, Verified 08/10/24 10:03) FACE SWELLINGatorvastatin calcium (From Caduet) Allergy (Mild, Verified 08/10/24 10:03) FACE SWELLINGtramadol HCl (From Ultram) Allergy (Mild, Verified 08/10/24 10:03) Nauseacitalopram (From Celexa) Allergy (Verified 08/10/24 10:03) Unknownhydrocodone (From Vicodin) Allergy (Verified 08/10/24 10:03) UnknownIodinated Contrast Media (Iodinated Contrast- Oral and IV Dye) Allergy (Verified 08/10/24 10:03) Hiveslidocaine Allergy (Verified 08/10/24 10:03) Unknownpropoxyphene (From Darvon) Allergy (Verified 08/10/24 10:03) Unknownclindamycin HCl (From Cleocin) Adverse Reaction (Intermediate, Verified 08/10/24 10:03) Unknownclindamycin palmitate HCl (From Cleocin) Adverse Reaction (Intermediate, Verified 08/10/24 10:03) Unknownclindamycin phosphate (From Cleocin) Adverse Reaction (Intermediate, Verified 08/10/24 10:03) Unknowntrazodone Adverse Reaction (Intermediate, Verified 08/10/24 10:03) NauseaPenicillins Adverse Reaction (Mild, Verified 08/10/24 10:03) DOES NOT WORKtrazodone HCl (From Desyrel) Adverse Reaction (Mild, Verified 08/10/24 10:03) Unknownacetaminophen (From Darvocet-N 100) Adverse Reaction (Verified 08/10/24 10:03) Nauseapropoxyphene napsylate (From Darvocet-N 100) Adverse Reaction (Verified 08/10/24 10:03) Nausea Medications ?Medication ?Instructions ?Recorded ?Confirmed ?Type ascorbic acid (vitamin C) 500 mg 500 mg PO DAILY vitamin 07/20/13 08/10/24 History tablet gabapentin 600 mg tablet 600 mg PO 4X/DAY nerve pain 07/20/13 08/10/24 History atorvastatin 20 mg tablet (Lipitor) 20 mg PO DAILY cholesterol 01/29/23 08/10/24 History apixaban 5 mg tablet (Eliquis) 5 mg PO BID #60 tabs 02/03/23 08/10/24 Rx metoprolol tartrate 50 mg tablet 50 mg PO BID #60 tabs 02/03/23 08/10/24 Rx amlodipine 10 mg tablet 10 mg PO DAILY blood pressure #90 03/15/23 08/10/24 Rx tabs cholecalciferol (vitamin D3) 50 50 mcg PO DAILY 03/15/23 08/10/24 History mcg (2,000 unit) capsule acetaminophen 650 mg 650 mg PO Q12H 07/21/24 08/10/24 History tablet,extended release (Tylenol Arthritis Pain) Have you fallen in the past year?: Yes PFSH Medical History Atrial fibrillation Hyponatremia Acute hypokalemia Bilateral pleural effusion Encephalopathy acute Acute hyponatremia Thickened endometrium Pelvic mass History of COVID-19 Chronic back pain Post-therapeutic neuralgia Hypokalemia Hypertension Hyperlipidemia Surgical History S/P bilateral salpingo-oophorectomy S/P appendectomy S/P lumpectomy of breast Family History Father Acute lymphocytic leukemia CVA (cerebral vascular accident) Lymphoma Heart disease Myocardial infarctionGrandfather Stomach cancerAunt Breast cancer LymphomaBrother Heart disease CAD (coronary artery disease) Social History Smoking Status: Never smoker alcohol intake: never substance use type: does not use caffeine: Yes seatbelt use: always do you feel safe at home: Yes additional social history: - Justice HPI RIGHT SHOULDER Details: This documentation accurately reflects the service provided and the decisions made by me, Dr. Dillon Sam MD 08/10/24 1001. Part of today?s visit was documented by [ ], acting as scribe. AMAN COBURN is a 83 year old F here today for 2 weeks follow-up right proximal humerus fracture nonoperative management. Ortho Exam General General: Yes no acute distress Neurologic: Yes alert and Yes oriented x3 Psychologic: Yes reasonable and appropriate Supplemental Info Radiographs taken today of the right shoulder 2 views show more angulation and displacement posteriorly of the proximal fragment Coding Level of Care Code Off vis,est,level 4 Diagnoses Fracture of proximal end of humerus S42.209A Assessment and Plan Assessment and Plan (1) Fracture of proximal end of humerus: Status: Inactive Plan: AMAN COBURN is a 83 year old F here today for 2 weeks follow-up right proximal humerus fracture nonoperative management. We again had an extensive 30-minute [id number] discussion on the pros cons risk benefits of nonoperative versus open reduction internal fixation or other means of surgical means of treating the problem. High risk of stiffness regardless. There is a chance of avascular necrosis or not healing of the head regardless weakness pain and other problems. Can consider intramedullary nail fixation given the 2 part relatively simple nature of the fracture. The patient would like to go ahead with that although the other option would be a reverse total shoulder arthroplasty. Patient explained the recovery associated with that 2 weeks in a sling 3 to 4 months of physical therapy and postoperative cover they understood wished to go ahead with right proximal humerus open reduction internal fixation. They do have some medical problems on Eliquis that will need to be held prior to surgery this can increase the chance of infection and other complications patient understands and okay to proceed with surgery signed the consent form today. Pros and cons risks and benefits were discussed with the patient including but not limited to infection, pain, stiffness, bleeding, damage to surrounding structures, neurovascular injury, recurrence or retear, failure or wear of hardware or fixation, instability, fracture, deep vein thrombosis and pulmonary embolism, anesthetic risks, , patient dissatisfaction, need for further surgery and other risks. Patient understood and wished to proceed with surgery, and signed the informed consent documentation. Orders: Orders Shoulder min 2 Views Today S42.209A - Unspecified fracture of upper end of unspecified humerus, initial encounter for closed fracture [facility] Medical History Wears dentures Wears glasses Post-menopausal Arthritis High cholesterol DVT (deep venous thrombosis) Back pain History of diverticulitis Shortness of breath on exertion History of echocardiogram History of stress test Cardiology follow-up encounter Atrial fibrillation Hyponatremia Acute hypokalemia Bilateral pleural effusion Encephalopathy acute Acute hyponatremia Thickened endometrium Pelvic mass History of COVID-19 Chronic back pain Post-therapeutic neuralgia Hypokalemia Hypertension Hyperlipidemia Home Medications ?Medication ?Instructions ?Recorded ?Last Taken ?Type ascorbic acid (vitamin C) 500 mg 500 mg PO DAILY vitamin 07/20/13 Unknown History tablet gabapentin 600 mg tablet 600 mg PO 4X/DAY nerve pain 07/20/13 08/14/24 History atorvastatin 20 mg tablet (Lipitor) 20 mg PO DAILY cholesterol 01/29/23 Unknown History apixaban 5 mg tablet (Eliquis) 5 mg PO BID #60 tabs 02/03/23 08/11/24 Rx metoprolol tartrate 50 mg tablet 50 mg PO BID #60 tabs 02/03/23 08/14/24 Rx amlodipine 10 mg tablet 10 mg PO DAILY blood pressure #90 03/15/23 08/14/24 Rx tabs cholecalciferol (vitamin D3) 50 50 mcg PO DAILY 06/19/23 Unknown History mcg (2,000 unit) capsule acetaminophen 650 mg 650 mg PO Q12H 07/21/24 Unknown History tablet,extended release (Tylenol Arthritis Pain) Allergy/AdvReac Type Severity Reaction Status Date / Time celecoxib (From Celebrex) Allergy Intermediate HEART RACE Verified 08/11/24 11:01 citalopram hydrobromide Allergy Intermediate HEART RACE Verified 08/11/24 11:01 (From Celexa) hydrochlorothiazide Allergy Intermediate Hives Verified 08/11/24 11:01 hydrocodone bitartrate (From Allergy Intermediate VOMITS Verified 08/11/24 11:01 Vicodin) ramipril (From Altace) Allergy Intermediate FACE Verified 08/11/24 11:01 SWELLING rofecoxib (From Vioxx) Allergy Intermediate HEART RACE Verified 08/11/24 11:01 valdecoxib (From Bextra) Allergy Intermediate HEART RACE Verified 08/11/24 11:01 amlodipine besylate (From Allergy Mild FACE Verified 08/11/24 11:01 Caduet) SWELLING atorvastatin calcium (From Allergy Mild FACE Verified 08/11/24 11:01 Caduet) SWELLING tramadol HCl (From Ultram) Allergy Mild Nausea Verified 08/11/24 11:01 citalopram (From Celexa) Allergy Unknown Verified 08/11/24 11:01 hydrocodone (From Vicodin) Allergy Unknown Verified 08/11/24 11:01 Iodinated Contrast Media Allergy Hives Verified 08/11/24 11:01 (Iodinated Contrast- Oral and IV Dye) lidocaine Allergy Unknown Verified 08/11/24 11:01 propoxyphene (From Darvon) Allergy Unknown Verified 08/11/24 11:01 clindamycin HCl (From AdvReac Intermediate Unknown Verified 08/11/24 11:01 Cleocin) clindamycin palmitate HCl AdvReac Intermediate Unknown Verified 08/11/24 11:01 (From Cleocin) clindamycin phosphate (From AdvReac Intermediate Unknown Verified 08/11/24 11:01 Cleocin) trazodone AdvReac Intermediate Nausea Verified 08/11/24 11:01 Penicillins AdvReac Mild DOES NOT Verified 08/11/24 11:01 WORK trazodone HCl (From Desyrel) AdvReac Mild Unknown Verified 08/11/24 11:01 acetaminophen (From AdvReac Nausea Verified 08/11/24 11:01 Darvocet-N 100) propoxyphene napsylate (From AdvReac Nausea Verified 08/11/24 11:01 Darvocet-N 100) Family History Father Acute lymphocytic leukemia CVA (cerebral vascular accident) Lymphoma Heart disease Myocardial infarction Grandfather Stomach cancer Aunt Breast cancer Lymphoma Brother Heart disease CAD (coronary artery disease) Surgical History Hx of bilateral cataract extraction S/P bilateral salpingo-oophorectomy S/P appendectomy S/P lumpectomy of breast Social History Smoking Status: Never smoker alcohol intake: never substance use type: does not use caffeine: Yes seatbelt use: always do you feel safe at home: Yes additional social history: - Justice Vital Signs Vital Signs Vital Signs: 08/14/24 13:42 08/14/24 13:42 08/14/24 13:48 Temperature 97 F L 97 F L Temperature Source Temporal Pulse Rate 68 68 Respiratory Rate 16 16 Respiratory Pattern Normal Blood Pressure 140/62 H 140/62 H Blood Pressure Mean 88 Blood Pressure Source Monitor Blood Pressure Position Semi-Fowlers Blood Pressure Location Left Arm Pulse Ox 98 98 Oxygen Delivery Method Room Air Weight Weight: 130 lb 1.164 oz Body Mass Index (BMI) 24.5
[2024-08-14] MEDS: Cefazolin 2 GM in Syringe IV (14:45)
--- NOTE | 2024-08-14 14:51 | RAD_ITS ---
INDICATION: RIGHT PROXIMAL HUMERUS OPEN REDUCTION INTERNAL FIXATION EXAMINATION/TECHNIQUE: X-RAY - RIGHT XR Humerus 5 intraoperative Views COMPARISON: FINDINGS: Intraoperative images demonstrate interval ORIF with placement of an intramedullary dario for a right humeral fracture. Bony details are limited. RAD/Humerus min 2 Views IMPRESSION: Status post ORIF for a right humeral fracture. Electronically Signed: Que Evangelista DO at 16:09 EST ,
[2024-08-14] MEDS: Bupivacaine 0.25% 30 ML Vial (15:12)
--- NOTE | 2024-08-14 15:56 | PCM.OPRPT ---
Problems Associated Problem List Diagnoses (1) Fracture of proximal end of humerus: Operative Report (Standard) Operative Information Surgery/Procedure Performed: R proximal humerus ORIF Surgeon: Dillon Sam Date of Procedure: 08/14/24 Procedure Start Time: 14:55 Procedure Stop Time: 15:53 Pre-Operative Diagnosis: R proximal humerus fracture Post-Operative Diagnosis: same Select all DRAINS/GRAFTS/IMPLANTS that apply: Implanted device Implanted device details: synthes proximal humerus nail multiloc [id number] Type of Anesthesia: General Estimated Blood Loss: 50 Specimen collected: No Description of surgery: Patient brought to the operating room theater. Placed supine on the table. General anesthesia induced. 2 g IV Ancef administered prior to the start of the procedure. Patient sat up at a 45 degree angle using the beachchair positioner and arm positioner to the patient's right side. SCDs on the legs. All bony prominences padded. Goggles on the eyes. Upper extremity prepped and draped in the usual sterile fashion allowing over 3 minutes drying time prior to draping. Chlorhexidine-based prep solution. Preoperative timeout performed to confirm the site patient and surgery. Began by taking intraoperative x-rays manipulating the fracture site to get a preliminary reduction. I made a small stab incision laterally and used a [place] elevator at the fracture site to get the fracture out of compaction and varus. Then also used a Steven elevator to take the fracture out of flexion manipulate this from posterior to anterior. I made an incision over Neviasers portal. Dissected through the muscle of the trapezius as well as supraspinatus, in line with the fibers. Achieved dissection down to the superior aspect of the humerus. Inserted the guidewire center center on both the anterior AP as well as scapular Y lateral radiographs at the superior humerus head. Then reamed over this. Had a good reduction. Then passed the ball-tipped guidewire through the previously reamed path and then into the distal diaphysis. Chose a 8 x 160 mm long right Synthes proximal multi lock humeral nail slid this into place. I drilled percutaneous for the proximal 4.5 mm multi lock screws 1x36 mm and 2x38 mm screws into the proximal head segment, stopping short of the articular surface. These were percutaneous screws as well as I did the same technique at the distal aspect to lock the humeral nail these were fully threaded cortical locking screws 4.0 mm 1x26 mm screw and 1x24 mm lag screw. This achieved a good reduction of the fracture and proper positioning of the nail final radiographs were taken AP and scapular Y radiographs proximally and distally. These were saved onto the system. Wound thoroughly irrigated subcutaneous tissue closed with 2-0 Vicryl suture and skin with 3-0 Monocryl. Skin cleaned with wet dry dressing followed application of dressings with clear border dressings and gauze. Abduction pillow sling placed in the upper extremity. Patient woken up from the general anesthetic transferred off the operating table taken to postanesthetic care unit in stable condition. All sponge needle instrument counts were correct no complications plan to the patient discharged home according to day surgery criteria. CPT 20512 Surgical Findings: proximal humerus fracture Cold Press Operator orthodontist assistant: Yes Toll Repairer Central Office: [place] Tasks completed by customer care assistant: Retracting Additional operations manager assistant?: Yes Additional Layout Technician #2: saenz Tasks completed by operations manager assistant #2: Retracting Additional operations manager assistant?: No Complications Complications: No Admit VTE Documentation VTE Present on Admission: No VTE Mechan Device Prophylaxis: SCD's VTE Pharm Prophylaxis ordered?: No Reason prophylaxis not ordered: Treatment Not Indicated Procedures Musculoskeletal [id number]: Other Procedure See Report
--- NOTE | 2024-08-14 16:06 | DCINST_ITS ---
Discharge Instructions Diet Discharge Diet: No restrictions Activity Ice area for (Minutes): 10 Keep extremity elevated above heart level: Operative Extremity Additional Activity Instructions:: pendulums only Dressing / Incision Call your doctor if your incision/area has: Continuous Slow Oozing, Sudden Increased Bleeding, Increased Pain/ Swelling, Increased Redness, Foul Smelling Discharge and Swelling at the incision site Call your doctor if you observe: Fever of 101 or Higher, Coldness, Increased Pain and Numbness or Tingling Change Dressing in: leave in place till F/U Cleanse incision/area with: Do not get Incision Wet Follow Up Care Please Follow Up With: Dillon Sam MD When: 2-3 days Test Results: Test results from this visit will be discussed in further detail at your follow-up appointment, if applicable. Discharge Plan Admission Attending Provider: Dillon Sam Primary Care Provider: Mariana Redd Instructions Print Language: Mongolian Discharge Orders/Prescriptions Prescriptions: No Action atorvastatin [Lipitor] 20 mg tablet 20 mg PO DAILY cholecalciferol (vitamin D3) 50 mcg (2,000 unit) capsule 50 mcg PO DAILY acetaminophen [Tylenol Arthritis Pain] 650 mg tablet extended release 650 mg PO Q12H gabapentin 600 MG tablet 600 mg PO 4X/DAY ascorbic acid (vitamin C) 500 MG tablet 500 mg PO DAILY Eliquis 5 mg tablet 5 mg PO BID Qty: 60 0RF metoprolol tartrate 50 mg tablet 50 mg PO BID Qty: 60 0RF amlodipine 10 mg tablet 10 mg PO DAILY Qty: 90 3RF Referrals / Follow Up: Mariana Redd MD [Primary Care Provider] - Dillon Sam MD [Med Staff - Active Staff] - Disposition Disposition (needs filled in before D/C Order can be placed): Home, Self Care
--- NOTE | 2024-08-14 16:25 | PCM.POST.ANE ---
Anesthesia: Postop Eval I Current Vital Signs Temperature: 97.3 F Pulse Rate: 67 Blood Pressure: 127/66 Respiratory Rate: 16 Pulse Ox: 97 Oxygen Delivery Method: Room Air Assessment Airway patent: Yes Spontaneous unlabored respirations: Yes Mental status: Awake nausea: No Vomiting: No Anesthesia Complication: No Fluid Hydration Crystalloid volume administer (ml): 700 Total IV fluid infused: 700 Progress Note Anesthesia document: Postop Eval 1 completed: Yes
--- NOTE | 2024-08-14 19:40 | RAD_ITS ---
INDICATION: hypoxia EXAMINATION/TECHNIQUE: X-RAY - XR Chest 1 View COMPARISON: FINDINGS: LINES/DEVICES: None. LUNGS: No consolidation, edema or effusion. Basilar atelectasis. Slightly elevated right hemidiaphragm. No pneumothorax. MEDIASTINUM AND CARDIOVASCULAR STRUCTURES: Cardiac silhouette not enlarged. Central airways and mediastinal contour are unremarkable. BONES AND SOFT TISSUES: Intramedullary dario in the right humerus. Degenerative vertebral changes. Subcutaneous emphysema in the right supraclavicular region and shoulder. RAD/Chest 1 View (Portable) IMPRESSION: Basilar atelectasis. Slightly elevated right hemidiaphragm. Subcutaneous emphysema in the right supraclavicular region and shoulder, likely related to recent surgery. Electronically Signed: Que Evangelista DO at 21:10 EST ,
--- NOTE | 2024-08-14 20:05 | HP.PCM.HOS_ITS ---
HPI - General General Date of Admission: 08/14/24 Date of Service: 08/14/24 Chief Complaint: Postoperative hypoxia HPI Narrative AMAN COBURN, is a 83 F who presented to [facility] on 08/14/2024 for an elective ORIF of a right proximal humeral fracture that was sustained on 07/17/2024. Initial management had been conservative with nonoperative management and sling usage however the fracture had become more displaced and options were discussed with the patient. She elected for operative management with ORIF via intramedullary nail placement. Patient tolerated surgery well however she remained hypoxic and requiring oxygen postoperatively. We were called by orthopedic surgery to admit the patient for postoperative hypoxemia. The initial intent was for discharge home after recovery. Per discussion with family, they report she often has difficulties with anesthesia postoperatively to include delayed arousal after anesthesia, need for oxygen, and postoperative nausea. Patient states she is having some nausea right now. She denies any shortness of breath or chest pain. It appears she only received 700 cc intraoperatively and then finish that bag and has another about 250 cc to 500 cc remaining in a second bag for a total of about a liter and a half. I did obtain a stat chest x-ray there does not appear to be any signs of volume overload on this. All other labs pending at the time of admission. Current vital signs show a temperature of 97.5, heart rate 78, blood pressure 125/60, respiratory rate is 16 and oxygen saturations are 97% on 2 L nasal cannula. [facility]LY [facility] Medical History Wears dentures Wears glasses Post-menopausal Arthritis High cholesterol DVT (deep venous thrombosis) Back pain History of diverticulitis Shortness of breath on exertion History of echocardiogram History of stress test Cardiology follow-up encounter Atrial fibrillation Hyponatremia Acute hypokalemia Bilateral pleural effusion Encephalopathy acute Acute hyponatremia Thickened endometrium Pelvic mass History of COVID-19 Chronic back pain Post-therapeutic neuralgia Hypokalemia Hypertension Hyperlipidemia Home Medications ?Medication ?Instructions ?Recorded ?Last Taken ?Type ascorbic acid (vitamin C) 500 mg 500 mg PO DAILY vitamin 07/20/13 Unknown History tablet gabapentin 600 mg tablet 600 mg PO 4X/DAY nerve pain 07/20/13 08/14/24 History atorvastatin 20 mg tablet (Lipitor) 20 mg PO DAILY cholesterol 01/29/23 Unknown History apixaban 5 mg tablet (Eliquis) 5 mg PO BID #60 tabs 02/03/23 08/11/24 Rx metoprolol tartrate 50 mg tablet 50 mg PO BID #60 tabs 02/03/23 08/14/24 Rx amlodipine 10 mg tablet 10 mg PO DAILY blood pressure #90 03/15/23 08/14/24 Rx tabs cholecalciferol (vitamin D3) 50 50 mcg PO DAILY 03/15/23 Unknown History mcg (2,000 unit) capsule acetaminophen 650 mg 650 mg PO Q12H 07/21/24 Unknown History tablet,extended release (Tylenol Arthritis Pain) Allergy/AdvReac Type Severity Reaction Status Date / Time celecoxib (From Celebrex) Allergy Intermediate HEART RACE Verified 08/11/24 11:01 citalopram hydrobromide Allergy Intermediate HEART RACE Verified 08/11/24 11:01 (From Celexa) hydrochlorothiazide Allergy Intermediate Hives Verified 08/11/24 11:01 hydrocodone bitartrate (From Allergy Intermediate VOMITS Verified 08/11/24 11:01 Vicodin) ramipril (From Altace) Allergy Intermediate FACE Verified 08/11/24 11:01 SWELLING rofecoxib (From Vioxx) Allergy Intermediate HEART RACE Verified 08/11/24 11:01 valdecoxib (From Bextra) Allergy Intermediate HEART RACE Verified 08/11/24 11:01 amlodipine besylate (From Allergy Mild FACE Verified 08/11/24 11:01 Caduet) SWELLING atorvastatin calcium (From Allergy Mild FACE Verified 08/11/24 11:01 Caduet) SWELLING tramadol HCl (From Ultram) Allergy Mild Nausea Verified 08/11/24 11:01 citalopram (From Celexa) Allergy Unknown Verified 08/11/24 11:01 hydrocodone (From Vicodin) Allergy Unknown Verified 08/11/24 11:01 Iodinated Contrast Media Allergy Hives Verified 08/11/24 11:01 (Iodinated Contrast- Oral and IV Dye) lidocaine Allergy Unknown Verified 08/11/24 11:01 propoxyphene (From Darvon) Allergy Unknown Verified 08/11/24 11:01 clindamycin HCl (From AdvReac Intermediate Unknown Verified 08/11/24 11:01 Cleocin) clindamycin palmitate HCl AdvReac Intermediate Unknown Verified 08/11/24 11:01 (From Cleocin) clindamycin phosphate (From AdvReac Intermediate Unknown Verified 08/11/24 11:01 Cleocin) trazodone AdvReac Intermediate Nausea Verified 08/11/24 11:01 Penicillins AdvReac Mild DOES NOT Verified 08/11/24 11:01 WORK trazodone HCl (From Desyrel) AdvReac Mild Unknown Verified 08/11/24 11:01 acetaminophen (From AdvReac Nausea Verified 08/11/24 11:01 Darvocet-N 100) propoxyphene napsylate (From AdvReac Nausea Verified 08/11/24 11:01 Darvocet-N 100) Family History Father Acute lymphocytic leukemia CVA (cerebral vascular accident) Lymphoma Heart disease Myocardial infarction Grandfather Stomach cancer Aunt Breast cancer Lymphoma Brother Heart disease CAD (coronary artery disease) Surgical History Hx of bilateral cataract extraction S/P bilateral salpingo-oophorectomy S/P appendectomy S/P lumpectomy of breast Social History Smoking Status: Never smoker alcohol intake: never substance use type: does not use caffeine: Yes seatbelt use: always do you feel safe at home: Yes additional social history: - Justice ROS Constitutional Constitutional: Denies anorexia, change in weight, chills, fatigue, fever(s), malaise, night sweats, weakness or other Eyes Eyes: Denies blurry vision, change in eye color, change in vision, discharge from eye(s), double vision, erythema, eye pain, loss of vision or other ENT HEENT: Denies abnormal hearing, dysphagia, ear pain, epistaxis, headache(s), hearing loss, nasal congestion, nasal discharge, post nasal drip, sinus pressure, sore throat or other Cardiovascular Cardiovascular: Denies chest pain, claudication, dyspnea on exertion, edema, lightheadedness, orthopnea, palpitations, paroxysmal nocturnal dyspnea, rapid heart rate, syncope or other Respiratory/Chest Respiratory/Chest: Denies cough, dyspnea, excessive phlegm production, hemoptysis, productive cough, shortness of breath at rest, shortness of breath with exertion, wheezing or other Gastrointestinal Gastrointestinal: Reports nausea; Denies abdominal pain, coffee ground emesis, constipation, diarrhea, dyspepsia, hematemesis, hematochezia, loose stools, melena, vomiting or other Genitourinary Genitourinary: Denies burning urination, difficulty urinating, dysuria, hematuria, nocturia, urinary frequency, urinary hesitancy, urinary incontinence, urinary urgency or other Musculoskeletal Musculoskeletal: Reports joint pain, joint stiffness and other Details: Right shoulder pain postoperatively Neurologic Neurologic: Denies abnormal gait, abnormal speech, confusion, disequilibrium, dizziness, focal weakness, headache(s), numbness, paresthesias, seizure-like activity, seizures, syncope, tingling, tremor(s) or other Psychiatric Psychiatric: Denies anxiety, depression, homicidal ideation, suicidal ideation or other Endocrine Endocrinology: Denies change in body appearance, cold intolerance, excessive sweating, heat intolerance, polydipsia, polyuria or other Hematologic/Lymphatic Hematologic/Lymphatic: Reports easy bleeding and easy bruising; Denies anemia, lymphadenopathy or other Allergic/Immunologic Allergic/Immunologic: Denies rhinitis, hives, eczemia, asthma or other Vital Signs Vital Signs Vital Signs: 08/14/24 13:42 08/14/24 13:42 08/14/24 13:48 Temperature 97 F L 97 F L Temperature Source Temporal Pulse Rate 68 68 Respiratory Rate 16 16 Respiratory Pattern Normal Blood Pressure 140/62 H 140/62 H Blood Pressure Mean 88 Blood Pressure Source Monitor Blood Pressure Position Semi-Fowlers Blood Pressure Location Left Arm Baseline BP Pulse Ox 98 98 Oxygen Delivery Method Room Air Oxygen Flow Rate (L/min) 08/14/24 16:15 08/14/24 16:20 08/14/24 16:25 Temperature 97.2 F L Temperature Source Temporal Pulse Rate 60 63 60 Respiratory Rate 18 18 16 Respiratory Pattern Normal Blood Pressure 127/66 H 127/58 H 117/62 Blood Pressure Mean 86 81 80 Blood Pressure Source Monitor Monitor Monitor Blood Pressure Position Semi-Fowlers Semi-Fowlers Semi-Fowlers Blood Pressure Location Left Arm Left Arm Left Arm Baseline BP 140/62 140/62 140/62 Pulse Ox 95 96 95 Oxygen Delivery Method Room Air Nasal Cannula Nasal Cannula Oxygen Flow Rate (L/min) 2 4 08/14/24 16:26 08/14/24 16:30 08/14/24 16:45 Temperature 97.3 F L Temperature Source Pulse Rate 67 56 L 54 L Respiratory Rate 16 18 18 Respiratory Pattern Blood Pressure 127/66 H 129/58 H 127/59 H Blood Pressure Mean 81 81 Blood Pressure Source Monitor Monitor Blood Pressure Position Semi-Fowlers Semi-Fowlers Blood Pressure Location Left Arm Left Arm Baseline BP 140/62 140/62 Pulse Ox 97 96 98 Oxygen Delivery Method Room Air Nasal Cannula Nasal Cannula Oxygen Flow Rate (L/min) 2 2 08/14/24 17:00 08/14/24 17:15 08/14/24 17:30 Temperature Temperature Source Pulse Rate 90 90 80 Respiratory Rate 16 18 18 Respiratory Pattern Blood Pressure 121/51 H 130/63 H 129/59 H Blood Pressure Mean 74 85 82 Blood Pressure Source Monitor Monitor Monitor Blood Pressure Position Semi-Fowlers Semi-Fowlers Semi-Fowlers Blood Pressure Location Left Arm Left Arm Left Arm Baseline BP 140/62 140/62 140/62 Pulse Ox 97 97 97 Oxygen Delivery Method Nasal Cannula Room Air Nasal Cannula Oxygen Flow Rate (L/min) 2 3 08/14/24 17:45 08/14/24 18:00 08/14/24 18:15 Temperature Temperature Source Pulse Rate 77 67 71 Respiratory Rate 18 16 16 Respiratory Pattern Blood Pressure 107/60 126/55 H 117/55 L Blood Pressure Mean 75 78 75 Blood Pressure Source Monitor Monitor Monitor Blood Pressure Position Semi-Fowlers Semi-Fowlers Semi-Fowlers Blood Pressure Location Left Arm Left Arm Left Arm Baseline BP 140/62 140/62 140/62 Pulse Ox 98 96 96 Oxygen Delivery Method Nasal Cannula Nasal Cannula Nasal Cannula Oxygen Flow Rate (L/min) 3 2 2 08/14/24 18:30 08/14/24 18:45 08/14/24 19:00 Temperature Temperature Source Pulse Rate 80 84 84 Respiratory Rate 16 16 16 Respiratory Pattern Blood Pressure 107/53 L 115/41 L 118/61 Blood Pressure Mean 71 65 80 Blood Pressure Source Monitor Monitor Monitor Blood Pressure Position Semi-Fowlers Semi-Fowlers Semi-Fowlers Blood Pressure Location Left Arm Left Arm Left Arm Baseline BP 140/62 140/62 140/62 Pulse Ox 96 97 97 Oxygen Delivery Method Nasal Cannula Nasal Cannula Nasal Cannula Oxygen Flow Rate (L/min) 2 2 2 08/14/24 19:15 08/14/24 19:30 Temperature 97.5 F L Temperature Source Temporal Pulse Rate 89 78 Respiratory Rate 16 16 Respiratory Pattern Blood Pressure 138/58 H 125/60 H Blood Pressure Mean 84 81 Blood Pressure Source Monitor Monitor Blood Pressure Position Semi-Fowlers Semi-Fowlers Blood Pressure Location Left Arm Left Arm Baseline BP 140/62 140/62 Pulse Ox 98 97 Oxygen Delivery Method Nasal Cannula Nasal Cannula Oxygen Flow Rate (L/min) 2 2 Weight Weight: 59 kg Body Mass Index (BMI) 24.5 Physical Exam Const alert, oriented x3, no apparent distress, average body habitus, healthy appearing and well nourished Constitutional Narrative: Elderly, white female, sitting up in bed, groggy postoperatively but able to interact appropriately, appears if she is not feeling well but not toxic General Appearance: cooperative HEENT normocephalic and head/scalp atraumatic HEENT Narrative: Mild hearing loss, mucous membranes are dry, Mallampati 2-3, no thrush Eyes conjunctivae normal Eyes Narrative: No scleral icterus Resp normal respiratory effort, no retractions, no use of accessory muscles and clear to auscultation bilaterally Resp Narrative: Diminished at bases bilaterally but clear Auscultation: Negative for rales, rhonchi or wheezes Cardio regular rate, regular rhythm, S1 normal heart sound, S2 normal heart sound, no murmurs, no rub, no gallops and no clicks GI normal to inspection, nondistended, normoactive bowel sounds, soft to palpation and non-tender Extremity no clubbing, cyanosis or edema Extremity Narrative: Right upper extremity in sling, postoperative incisions noted and are currently clean dry and intact with any signs of drainage Neuro oriented x3 and no focal motor deficits Speech: speech normal Psych Psych Narrative: Affect is slightly flat but appropriate for now Results Lab / Micro Data 08/14/24 19:50 08/14/24 19:50 Imaging Radiology Impression Humerus X-Ray 08/14/24 14:51 IMPRESSION: Status post ORIF for a right humeral fracture. Electronically Signed: Que Evangelista DO at 16:09 EST , Assessment & Plan Assessment/Plan (1) Postoperative hypoxia: PLAN: Plan Postoperative hypoxia -Highly suspect this is related to delayed recovery from anesthesia -Family reports she has had difficulty with anesthesia previously -Chest x-ray appears unremarkable -BNP is pending however patient has not even had 2 L of IV fluids at this time and does not overall appear volume overloaded -Will hold off on diuretics at this time -Last echocardiogram was overtly unremarkable -Highly encourage incentive spirometry and discussed with patient and family -Check continuous pulse ox for now -Check ambulatory pulse ox in a.m.--> orders in place -Should improve once anesthesia wears off -Check CBC/CMP Postoperative nausea -As needed Zofran and as needed Compazine available for the situation as Zofran is not effective -Start clear liquid diet and advance to cardiac as tolerated Right shoulder fracture -Postop day 0 ORIF with intramedullary nail -Consult orthopedic surgery -Hold Eliquis for now and restart per orthopedic surgery recommendation--> I did try to page Dr. Sam and call him however no response so we will need to try to again discuss with him tomorrow -Will use low-dose 2.5 mg p.o. oxycodone for pain control -Scheduled Tylenol -As needed pain management -Continue sling -Management per orthopedic surgery overall Moderate mitral calcification/mild tricuspid valve regurgitation -Continue outpatient management follow-up with cardiology Paroxysmal atrial fibrillation -Continue home beta-candice -Hold Eliquis and restart once okay with orthopedic surgery--> anticipate this will be tomorrow however I was unable to get a hold of orthopedics to discuss today Essential hypertension/hyperlipidemia -Continue home metoprolol -Continue home amlodipine -Continue home atorvastatin History of bilateral pleural effusion -No effusion noted at this time -Chest x-ray only shows elevated right hemidiaphragm Postherpetic neuralgia -Continue home gabapentin DVT prophylaxis -Patient has been on Eliquis and anticipate will be able to restart soon if not we will need to start subcu Lovenox CODE STATUS -Full code as discussed prior to admission from PACU Charges/Coding Visit Charges Inpatient E&M: 87162 Init Hosp L2
[2024-08-14 20:06] LABS: Absolute Lymphocyte Count 1.78 X10^3/uL (0.83-4.51); Absolute Neutrophil Count 14.4 X10^3/uL (2.0-7.7); Basophil# 0.11 X10^3/uL; Basophil% 0.6 % (0-1); Eosinophil# 0.01 X10^3/uL; Eosinophils% 0.1 % (0-5); Hematocrit 44.7 % (37-47); Hemoglobin 14.9 g/dL (12.0-15.0); Lymphocyte # 1.78 X10^3/ul (0.83-4.51); Lymphocyte % 10.3 % (19-41); Mean Corp Hgb Conc 33.3 g/dL (32-36); Mean Corpuscular Volume 93.1 fL (81-99); Mean Platelet Vol. 10.3 fl (6.2-12.0); Monocyte# 0.97 X10^3/uL; Monocyte% 5.6 % (0-10); NRBC Flagged by Analyzer 0 % (0-5); Neutrophil % 82.9 % (47-70); Platelet Count 240 K/mm3 (150-450); RBC Distribution Width CV 13.8 % (11.6-14.6); White Blood Count 17.4 K/mm3 (4.4-11.0)
[2024-08-14 20:24] LABS: ALB/GLOB Ratio 1.4 RATIO (0.9-2.4); AST(SGOT) 19 U/L (15-37); Alanine Aminotransfer ALT/SGPT 25 U/L (13-56); Albumin, Serum 4.1 g/dL (3.2-5.0); Alkaline Phosphatase 92 U/L (45-117); Anion Gap 12 (5-15); BUN 9 mg/dL (7-18); BUN/Creat Ratio 12.5 RATIO (10-20); Calcium,Total 9.4 mg/dL (8.5-10.1); Chloride 104 mmol/L (98-107); Creatinine, Serum 0.72 mg/dL (0.55-1.02); EST Glomerular Filtration Rate 82 mL/min (>60); Est Glom Filt Rate - Afr Amer 100 mL/min (>60); Estimated Creatinine Clearance 45.52 ml/min; Globulin 2.9 g/dL (2.2-4.2); Glucose 183 mg/dL (74-106); Sodium Level 142 mmol/L (136-145)
[2024-08-14 20:29] LABS: BNP,B-Type NATRIURETIC PEPTIDE 75.5 pg/mL (0-100)
[2024-08-14] MEDS: Atorvastatin Calcium 20 MG Tablet PO (21:44)
[2024-08-14] MEDS: Ondansetron 4 MG/2 ML Vial IV (21:44)
[2024-08-14] MEDS: Gabapentin 600 MG Tablet PO (21:44)
[2024-08-14] MEDS: Acetaminophen 500 MG Tablet 1000 MG PO (21:44)
[2024-08-14] MEDS: Metoprolol Tartrate 50 MG Tablet PO (21:45)
[2024-08-15] VITALS (13 sets, daily range): BP systolic 101–146; BP diastolic 49–65; PULSE 57–84; RESP 16–18; TEMP 36.6–37.2; O2SAT 90–99
[2024-08-15] MEDS: oxyCODONE 5 MG Tablet 2.5 MG PO ×2 (01:51→08:34)
[2024-08-15] MEDS: Acetaminophen 500 MG Tablet 1000 MG PO ×3 (05:49→22:10)
[2024-08-15 06:55] LABS: Absolute Lymphocyte Count 1.13 X10^3/uL (0.83-4.51); Absolute Neutrophil Count 8.8 X10^3/uL (2.0-7.7); Basophil# 0.02 X10^3/uL; Basophil% 0.2 % (0-1); Hematocrit 36.6 % (37-47); Hemoglobin 12.4 g/dL (12.0-15.0); Lymphocyte # 1.13 X10^3/ul (0.83-4.51); Lymphocyte % 10.7 % (19-41); Mean Corp Hgb Conc 33.9 g/dL (32-36); Mean Corpuscular Hgb 31.2 pg (27.0-32.0); Mean Corpuscular Volume 92.2 fL (81-99); Mean Platelet Vol. 10.8 fl (6.2-12.0); Monocyte# 0.63 X10^3/uL; NRBC Flagged by Analyzer 0 % (0-5); Neutrophil # 8.76 X10^3/uL (2.7-7.7); Neutrophil % 82.7 % (47-70); Platelet Count 182 K/mm3 (150-450); RBC Distribution Width CV 13.8 % (11.6-14.6); RBC Distribution Width SD 46.8 fl (35.1-43.9); Red Blood Count 3.97 M/mm3 (4.2-5.4); White Blood Count 10.6 K/mm3 (4.4-11.0)
--- NOTE | 2024-08-15 07:27 | PCM.POSTANE2 ---
Anesthesia Postop Eval I Sum Postop Eval Completion status Anesthesia document: Postop Eval 1 completed: Yes Anesthesia Postop Eval I Summary Anesthesia Postop Eval I Summary: Anesthesia Postop Eval I: Assessment Summary Airway patent Yes 08/14/24 16:26 [email or web address] Spontaneous unlabored Yes 08/14/24 16:26 [email or web address] respirations Mental status Awake 08/14/24 16:26 [email or web address] nausea No 08/14/24 16:26 [email or web address] Vomiting No 08/14/24 16:26 [email or web address] Anesthesia Postop Eval I: Fluid Summary Crystalloid volume administer 700 08/14/24 16:26 [email or web address] (ml) Colloids volume administered ( ml) Blood Product volume administered (ml) Total IV fluid infused 700 08/14/24 16:26 [email or web address] Anesthesia Postop Eval I: Summary Notes Anesthesia Complication No 08/14/24 16:26 [email or web address] Anesthesia Complication Comment: Post-operative progress note Anesthesia: Postop Eval II Evaluation Mental status: Awake Pain Level: 0 nausea: No Vomiting: No
[2024-08-15 07:28] LABS: Anion Gap 6 (5-15); BUN 11 mg/dL (7-18); BUN/Creat Ratio 18.2 RATIO (10-20); Calcium,Total 8.9 mg/dL (8.5-10.1); Chloride 103 mmol/L (98-107); EST Glomerular Filtration Rate 101 mL/min (>60); Est Glom Filt Rate - Afr Amer 122 mL/min (>60); Estimated Creatinine Clearance 45.52 ml/min; Glucose 139 mg/dL (74-106); Magnesium 1.4 mg/dL (1.6-2.6); Phosphorus 3.8 mg/dL (2.5-4.9); Sodium Level 137 mmol/L (136-145)
[2024-08-15] MEDS: 0.9% Saline Lock 10 ML Syringe IV (08:16)
[2024-08-15] MEDS: Magnesium Sulfate 4gm/100mL 4 GM/100 ML IV.SOLN. IV (08:16)
[2024-08-15] MEDS: Gabapentin 600 MG Tablet PO (08:22)
[2024-08-15] MEDS: Ascorbic Acid 500 MG Tablet PO (08:22)
[2024-08-15] MEDS: Cholecalciferol (VIT D3) 25 MCG TABLET (1,000 UNITS) 50 MCG PO (08:22)
[2024-08-15] MEDS: amLODIPine 10 MG Tablet PO (08:22)
[2024-08-15] MEDS: Metoprolol Tartrate 50 MG Tablet PO (08:22)
[2024-08-15] MEDS: 0.9% Normal Saline (1000mL) 1,000 ML 100 ML IV (10:33)
--- NOTE | 2024-08-15 11:48 | CASEMGMT ---
WILLIE CM into pt room, pt lying in chair in no distress with at bedside. Pt did not qualify for home oxygen. Pt reports she lives with her in a single story home with 2 steps to enter. Pt states typically she is I in ADLs but since the last month she has needed help. Pt has appt set up for Wednesday with Dr. Sam. Pt is SBA with therapy. Pt has DME available to her should she need it. Pt denies any homegoing needs at this time.
--- NOTE | 2024-08-15 15:31 | PCM.PN.HOSP ---
Reason for Visit Reason for Visit: Diagnoses Hypoxemia (08/14/24) Unspecified fracture of upper end of unspecified humerus, initial encounter for closed fracture (08/14/24) Other specified postprocedural states (08/14/24) Subjective Subjective Patient evaluated this a.m., received her blood pressure medication in addition to gabapentin and a dose of oxycodone, done well with therapy but was lightheaded and clammy when standing after period time and sat back down and was feeling a little lightheaded still. Reports she has reacted poorly to oxycodone in the past. Patient's blood pressure was 101/52, similar to what it was prior to her medications being administered and once reclined slightly increased to 110/49. Patient started on IV fluids that she appeared somewhat volume depleted. Patient reevaluated in the afternoon, is improving but still felt unsteady on her feet when she had just gone to the bathroom and was now sitting back in chair. Discussed risks and benefits of continued admission versus discharge and given patient is still feeling unsteady and as she only has use of 1 arm as well as only has assistance of her at home who has his own difficulties with mobility due to his back discussed keeping patient today, avoiding opioids and adjusting other medications and if patient feeling better in the a.m. discharge. Patient and family at bedside agreeable. Breathing without any difficulties and no hypoxia on ambulation so to off. Patient denies any chest pain, had some PVCs on telemetry but nothing sustained or RVR or anything that would account for her feeling. On further discussion patient does report she reacts poorly to oxycodone and thinks this may have contributed to her lightheadedness and feeling unwell this morning Objective Data Objective Data Vital Signs: Vital Signs Temp Pulse Resp BP Pulse Ox O2 Del Method O2 Flow Rate 97.8 F 62 18 110/49 L 94 Room Air 2 08/15/24 10:27 08/15/24 10:27 08/15/24 10:27 08/15/24 10:27 08/15/24 10:50 08/15/24 10:27 08/15/24 07:58 Oxygen Flow Rate (L/min) 2 Oxygen Delivery Method Room Air Weight: 59 kg Body Mass Index (BMI) 24.5 Intake & Output: Intake and Output for Last 24 Hours 08/13/24 08/14/24 08/15/24 23:59 23:59 23:59 Intake Total 1020 / 1020 1999 / 1999 Output Total 400 / 400 Balance 1020 / 1020 1600 / 1600 Lab / Micro Data 08/15/24 06:05 08/15/24 06:05 Labs: Laboratory Results - last 24 hr 08/14/24 19:50: WBC 17.4 H, RBC 4.80, Hgb 14.9, Hct 44.7, MCV 93.1, MCH 31.0, MCHC 33.3, RDW Std Deviation 47.0 H, RDW Coeff of Rodrick 13.8, Plt Count 240, MPV 10.3, Immature Gran % (Auto) 0.500, Neut % (Auto) 82.9 H, Lymph % (Auto) 10.3 L, [place] % (Auto) 5.6, Eos % (Auto) 0.1, Baso % (Auto) 0.6, Absolute Neuts (auto) 14.4 H, Absolute Lymphs (auto) 1.78, Nucleated RBC % 0, Sodium 142, Potassium 3.0 L, Chloride 104, Carbon Dioxide 26.0, Anion Gap 12, BUN 9, Creatinine 0.72, Estim Creat Clear Calc 45.52, Est GFR (MDRD) Af Amer 100, Est GFR (MDRD) Non-Af 82, BUN/Creatinine Ratio 12.5, Glucose 183 H, Calcium 9.4, Total Bilirubin 1.30 H, AST 19, ALT 25, Alkaline Phosphatase 92, B-Natriuretic Peptide 75.5, Total Protein 7.0, Albumin 4.1, Globulin 2.9, Albumin/Globulin Ratio 1.4 08/15/24 06:05: WBC 10.6, RBC 3.97 L, Hgb 12.4, Hct 36.6 L, MCV 92.2, MCH 31.2, MCHC 33.9, RDW Std Deviation 46.8 H, RDW Coeff of Rodrick 13.8, Plt Count 182, MPV 10.8, Immature Gran % (Auto) 0.400, Neut % (Auto) 82.7 H, Lymph % (Auto) 10.7 L, [place] % (Auto) 6.0, Eos % (Auto) 0.0, Baso % (Auto) 0.2, Absolute Neuts (auto) 8.8 H, Absolute Lymphs (auto) 1.13, Nucleated RBC % 0, Sodium 137, Potassium 4.0, Chloride 103, Carbon Dioxide 28.0, Anion Gap 6, BUN 11, Creatinine 0.60, Estim Creat Clear Calc 45.52, Est GFR (MDRD) Af Amer 122, Est GFR (MDRD) Non-Af 101, BUN/Creatinine Ratio 18.2, Glucose 139 H, Calcium 8.9, Phosphorus 3.8, Magnesium 1.4 L Radiography Diagnostic Testing: Radiology Impression Humerus X-Ray 08/14/24 14:51 IMPRESSION: Status post ORIF for a right humeral fracture. Electronically Signed: Que Evangelista DO at 16:09 EST , Chest X-Ray 08/14/24 19:40 IMPRESSION: Basilar atelectasis. Slightly elevated right hemidiaphragm. Subcutaneous emphysema in the right supraclavicular region and shoulder, likely related to recent surgery. Electronically Signed: Que Evangelista DO at 21:10 EST , Physical Exam Narrative General: Alert, oriented, appears tired HEENT: Atraumatic, normocephalic Eyes: Anicteric, normal conjunctiva, extraocular movements grossly intact Neck: Supple Respiratory: Clear to auscultation bilaterally, normal respiratory effort Cardiovascular: Regular rate and rhythm GI: Soft, nontender, nondistended Extremities: No edema Musculoskeletal: Moving all extremities aside from right shoulder which is in sling Neuro: No overt focal neurological deficits Skin: No rashes appreciated Psych: Cooperative Assessment & Plan Assessment/Plan (1) Postoperative hypoxia: PLAN: Plan # Lightheadedness -Patient was somewhat volume depleted earlier today and additionally received amlodipine 10, metoprolol 50, gabapentin 600, and her oxycodone 2.5 mg and has had blood pressure that has been relatively low for her -Suspect the borderline blood pressure in addition to the oxycodone was likely cause of symptoms -Patient is improving some IV fluids and being further out from these medications but still felt a little bit unsteady -Feel she is high risk to discharge home and if she is improving with adjustment in medications and doing well tomorrow would be reasonable for discharge -Patient with no significant events on telemetry -Do not think additional workup required at this time as this seems to be medication related -Hold amlodipine and decreasing metoprolol, also decreasing gabapentin, can increase this if symptoms improve -Patient to avoid oxycodone whenever possible # Postoperative hypoxia?resolved -Suspect this was related to anesthesia, patient ambulated and did not qualify for O2 # Status post ORIF of right proximal humeral fracture -Sustained fracture 07/17/2024 and on 08/14/2024 underwent an elective ORIF of right proximal humeral fracture with Dr. Sam # Paroxysmal atrial fibrillation -Patient reports her instructions were to resume Eliquis tomorrow morning -Continue beta-candice but will continue at lower dose for tonight # Hypertension -Holding amlodipine and decreasing metoprolol, can reincrease as patient tolerates #DVT ppx: Patient to resume Eliquis, SCDs can be in place until this has begun tomorrow Evelyn Wilson MD Time spent in the patient's overall evaluation, decision-making process, review of diagnostic data, adjustment of management, discussion with other providers, nursing and ancillary staff involved in patient's care documentation, 38 Minutes Charges/Coding Visit Charges Inpatient E&M: 89980 Subs Hosp L2
--- NOTE | 2024-08-15 15:58 | CASEMGMT ---
Met with patient to complete CAVANAUGH form. CAVANAUGH form explained to patient who voiced understanding and signed form. Original form placed in pt?s chart and copy provided to patient. Anamika Flower, Discharge Planning Asst
[2024-08-15] MEDS: Gabapentin 400 MG Capsule PO (22:09)
[2024-08-15] MEDS: Atorvastatin Calcium 20 MG Tablet PO (22:10)
[2024-08-15] MEDS: Metoprolol Tartrate 25 MG Tablet PO (22:10)
[2024-08-16 05:15] VITALS: BP 113/77; PULSE 127; RESP 18; TEMP 36.9; O2SAT 92
[2024-08-16] MEDS: Acetaminophen 500 MG Tablet 1000 MG PO (05:22)
[2024-08-16 05:26] VITALS: PULSE 144
[2024-08-16 05:30] VITALS: BP 113/77; PULSE 144
[2024-08-16] MEDS: Metoprolol Tartrate 25 MG Tablet PO (05:30)
[2024-08-16] MEDS: APIXABAN 5 MG TABLET PO (05:31)
[2024-08-16 06:55] VITALS: O2SAT 93
[2024-08-16 07:10] LABS: Absolute Lymphocyte Count 1.85 X10^3/uL (0.83-4.51); Absolute Neutrophil Count 7.6 X10^3/uL (2.0-7.7); Basophil# 0.03 X10^3/uL; Basophil% 0.3 % (0-1); Eosinophil# 0.03 X10^3/uL; Eosinophils% 0.3 % (0-5); Hematocrit 36.9 % (37-47); Hemoglobin 12.1 g/dL (12.0-15.0); Lymphocyte # 1.85 X10^3/ul (0.83-4.51); Mean Corp Hgb Conc 32.8 g/dL (32-36); Mean Corpuscular Hgb 30.7 pg (27.0-32.0); Mean Corpuscular Volume 93.7 fL (81-99); Mean Platelet Vol. 10.9 fl (6.2-12.0); Monocyte# 0.72 X10^3/uL; NRBC Flagged by Analyzer 0 % (0-5); Neutrophil # 7.59 X10^3/uL (2.7-7.7); Platelet Count 160 K/mm3 (150-450); RBC Distribution Width CV 13.9 % (11.6-14.6); RBC Distribution Width SD 47.7 fl (35.1-43.9); Red Blood Count 3.94 M/mm3 (4.2-5.4); White Blood Count 10.3 K/mm3 (4.4-11.0)
[2024-08-16 07:30] LABS: Anion Gap 6 (5-15); BUN 7 mg/dL (7-18); BUN/Creat Ratio 14.8 RATIO (10-20); Chloride 107 mmol/L (98-107); Creatinine, Serum 0.47 mg/dL (0.55-1.02); EST Glomerular Filtration Rate 134 mL/min (>60); Est Glom Filt Rate - Afr Amer 162 mL/min (>60); Estimated Creatinine Clearance 45.52 ml/min; Glucose 129 mg/dL (74-106); Potassium 3.4 mmol/L (3.5-5.1); Sodium Level 142 mmol/L (136-145)
[2024-08-16] MEDS: Potassium Chloride Oral Tablet 20 MEQ 40 MEQ PO (08:28)
[2024-08-16 09:00] VITALS: BP 136/63; PULSE 82; RESP 18; TEMP 36.8; O2SAT 93
--- NOTE | 2024-08-16 09:35 | PCM.PN.ORT ---
Subjective Subjective POD 2 right humerus nail, doing well, pain slowly settling down. interested to be able to go home today. Objective Data Objective Data Vital Signs: Vital Signs Temp Pulse Resp BP Pulse Ox O2 Del Method O2 Flow Rate 98.5 F 144 H 18 113/77 92 Room Air 2 08/16/24 05:15 08/16/24 05:30 08/16/24 05:15 08/16/24 05:30 08/16/24 05:15 08/16/24 05:15 08/15/24 07:58 Oxygen Flow Rate (L/min) 2 Oxygen Delivery Method Room Air Weight: 130 lb 1.164 oz Body Mass Index (BMI) 24.5 Intake & Output: Intake and Output for Last 24 Hours 08/14/24 08/15/24 08/16/24 23:59 23:59 23:59 Intake Total 1020 / 1020 2500 / 2500 700 / 700 Output Total 400 / 400 Balance 1020 / 1020 2100 / 2100 700 / 700 Lab / Micro Data 08/16/24 06:07 08/16/24 06:07 Labs: Laboratory Results - last 24 hr 08/16/24 06:07: WBC 10.3, RBC 3.94 L, Hgb 12.1, Hct 36.9 L, MCV 93.7, MCH 30.7, MCHC 32.8, RDW Std Deviation 47.7 H, RDW Coeff of Rodrick 13.9, Plt Count 160, MPV 10.9, Immature Gran % (Auto) 0.400, Neut % (Auto) 74.0 H, Lymph % (Auto) 18.0 L, [place] % (Auto) 7.0, Eos % (Auto) 0.3, Baso % (Auto) 0.3, Absolute Neuts (auto) 7.6, Absolute Lymphs (auto) 1.85, Nucleated RBC % 0, Sodium 142, Potassium 3.4 L, Chloride 107, Carbon Dioxide 29.0, Anion Gap 6, BUN 7, Creatinine 0.47 L, Estim Creat Clear Calc 45.52, Est GFR (MDRD) Af Amer 162, Est GFR (MDRD) Non-Af 134, BUN/Creatinine Ratio 14.8, Glucose 129 H, Calcium 9.0 Physical Exam Const alert and oriented x3 Constitutional Narrative: drsg dry, nvi axillary, mru and ain/pin. hand warm well perfused. in a sling . General Appearance: cooperative Assessment & Plan Assessment/Plan (1) Fracture of proximal end of humerus: PLAN: 83 F POD 2 right humerus IM nail. OK to discharge home once cleared by medicine. Has FU appointment booked already. OK for pendulum exercises, sling for comfort. Ok to restart blood thinner.
[2024-08-16] MEDS: Gabapentin 400 MG Capsule PO (10:59)
[2024-08-16] MEDS: Cholecalciferol (VIT D3) 25 MCG TABLET (1,000 UNITS) 50 MCG PO (10:59)
[2024-08-16] MEDS: Ascorbic Acid 500 MG Tablet PO (11:02)
--- NOTE | 2024-08-16 12:55 | DS.PCM_ITS ---
Providers Date of Admission: 08/15/24 Date of Discharge: 08/16/24 Primary Care Physician: Dr. Mariana Redd MD Consultations 08/14/24 20:10 Consult: Orthopedics Routine Consulting Provider: Dillon Sam Reason for Consult: Post op R Shld ORIF EMERGENT Consult: No MD Notified: Yes Date Notified: 08/14/24 Time Notified: 20:10 Method of Notification: Verbal Reason For Visit: POST OP HYPOXIA Diagnosis Discharge Diagnosis (1) Fracture of proximal end of humerus: Status: Inactive Code(s): S42.209A - Unspecified fracture of upper end of unspecified humerus, initial encounter for closed fracture Plan # Lightheadedness in setting of borderline hypotension after surgery, pain medication, patient's blood pressure medication, and slight volume depletion # Postoperative hypoxia?resolved # Status post ORIF of right proximal humeral fracture # Paroxysmal atrial fibrillation # Hypertension Medications at Discharge Home Medications ascorbic acid (vitamin C) 500 mg tablet 500 mg PO DAILY vitamin 07/20/13 gabapentin 600 mg tablet 600 mg PO 4X/DAY nerve pain 07/20/13 atorvastatin 20 mg tablet (Lipitor) 20 mg PO DAILY cholesterol 01/29/23 apixaban 5 mg tablet (Eliquis) 5 mg PO BID #60 tabs 02/03/23 metoprolol tartrate 50 mg tablet 50 mg PO BID #60 tabs 02/03/23 amlodipine 10 mg tablet 10 mg PO DAILY blood pressure #90 tabs 03/15/23 cholecalciferol (vitamin D3) 50 mcg (2,000 unit) capsule 50 mcg PO DAILY 03/15/23 acetaminophen 500 mg tablet 1,000 mg (2 x 500 mg) PO Q8 7 days #0 tabs 08/16/24 Hospital Course Summary of Care Provided Minutes Spent on Discharge: 22 Hospital Course: 83-year-old female history of hypertension, paroxysmal atrial fibrillation, right humeral fracture presented [facility] 08/14/2024 for an outpatient ORIF of right proximal humeral fracture with Dr. Sam. Postoperatively she developed hypoxia and hospitalist was contacted for admission. Is felt that this was secondary to anesthesia and by the following day patient no longer had need for oxygen and was able to ambulate without any hypoxia. Discharge was delayed as she had borderline blood pressure and was experiencing lightheadedness with ambulation and was unsteady which was presumably due to pain medication in addition to both of her blood pressure medications. Patient given fluids and was feeling somewhat better but still unsteady so she was held overnight for observation. In the a.m. patient feeling improved without significant symptoms and feels more steady. Patient had a documented heart rate of 144 however I do not see any other documentation on this patient denies any complaints or signs or symptoms around that time, unclear the cause or if this was missed documented or only temporary, patient doing well with her metoprolol and is comfortable being discharged home. Patient agreeable to discharge home with outpatient orthopedic follow-up. Discharge instructions as follows: DISCHARGE INSTRUCTIONS PLEASE READ *Please take this with you to your next doctors appointment* -Your amlodipine has been held, recommend checking her blood pressure at home and 1 your systolic blood pressure (top number) is greater than 130 please resume this -Follow up with Dr. Sam in 1-2 days. Please call upon discharge to schedule your follow up appointment -Please take 2 tabs of 500mg acetaminophen every 8 hours for 1 week for pain control -Please call your primary care provider's office upon discharge to schedule a hospital follow up within 1 week. -For any concerning signs or symptoms please call 911 or proceed to the nearest emergency department Discharge instructions from Dr. Sam after your surgery Diet Discharge Diet: No restrictions Activity Ice area for (Minutes): 10 Keep extremity elevated above heart level: Operative Extremity Additional Activity Instructions:: pendulums only Dressing / Incision Call your doctor if your incision/area has: Continuous Slow Oozing, Sudden Increased Bleeding, Increased Pain/ Swelling, Increased Redness, Foul Smelling Discharge and Swelling at the incision site Call your doctor if you observe: Fever of 101 or Higher, Coldness, Increased Pain and Numbness or Tingling Change Dressing in: leave in place till F/U Cleanse incision/area with: Do not get Incision Wet Follow Up Care Please Follow Up With: Dillon Sam MD When: 2-3 days Test Results: Test results from this visit will be discussed in further detail at your follow- up appointment, if applicable. Physical Exam Narrative General: Alert, oriented, appears tired HEENT: Atraumatic, normocephalic Eyes: Anicteric, normal conjunctiva, extraocular movements grossly intact Neck: Supple Respiratory: Clear to auscultation bilaterally, normal respiratory effort Cardiovascular: Regular rate GI: Soft, nontender, nondistended Extremities: No edema Musculoskeletal: Moving all extremities aside from right shoulder which is in sling Neuro: No overt focal neurological deficits Skin: No rashes appreciated Psych: Cooperative Weight / BMI Weight Weight: 59 kg Body Mass Index (BMI) 24.5 ABG / Lab / Microbiology Data 08/16/24 06:07 08/16/24 06:07 Laboratory: Laboratory Results - last 24 hr 08/16/24 06:07: WBC 10.3, RBC 3.94 L, Hgb 12.1, Hct 36.9 L, MCV 93.7, MCH 30.7, MCHC 32.8, RDW Std Deviation 47.7 H, RDW Coeff of Rodrick 13.9, Plt Count 160, MPV 10.9, Immature Gran % (Auto) 0.400, Neut % (Auto) 74.0 H, Lymph % (Auto) 18.0 L, [place] % (Auto) 7.0, Eos % (Auto) 0.3, Baso % (Auto) 0.3, Absolute Neuts (auto) 7.6, Absolute Lymphs (auto) 1.85, Nucleated RBC % 0, Sodium 142, Potassium 3.4 L , Chloride 107, Carbon Dioxide 29.0, Anion Gap 6, BUN 7, Creatinine 0.47 L, Estim Creat Clear Calc 45.52, Est GFR (MDRD) Af Amer 162, Est GFR (MDRD) Non-Af 134, BUN/Creatinine Ratio 14.8, Glucose 129 H, Calcium 9.0 D/C Instructions Discharge Diet: No restrictions Ice area for (Minutes): 10 Keep extremity elevated above heart level: Operative Extremity Additional Activity Instructions: pendulums only Call your doctor if your incision/area has: Continuous Slow Oozing, Sudden Increased Bleeding, Increased Pain/ Swelling, Increased Redness, Foul Smelling Discharge and Swelling at the incision site Call your doctor if you observe: Fever of 101 or Higher, Coldness, Increased Pain and Numbness or Tingling Cleanse incision/area with: Do not get Incision Wet DC O2, CPAP, BIPAP Needs RN Home O2 Qualification: Home O2 Qualification: Is the patient on home oxygen No 08/15/24 09:00 Home O2 Qualification: AT REST 1- Pulse Ox at rest 94 08/15/24 09:00 Home O2 Qualification: WITH AMBULATION 1- Pulse Ox with ambulation 92 08/15/24 09:00 1- Oxygen Flow Rate with 0 08/15/24 09:00 ambulation Additional Home O2 Discharge instructions: No DC home with Oxygen: No Please Follow Up With: Dillon Sam MD When: 2-3 days Meaningful Use Info Meaningful Use Meaningful Use Diagnoses (Choose all that apply): None applicable Ischemic Stroke Statin Dosing Therapy Reference: STATIN DOSE THERAPY REFERENCE: * Patients > 75 years receive moderate or high dose statin therapy. * Patients 75 years or YOUNGER should receive HIGH intensity statin dose unless contraindicated. You will be required to document reason for non-treatment if statin daily dose does not meet guidelines. HIGH DOSE STATIN THERAPY DAILY Atorvastatin > than or = to 40 mg Rosuvastatin > than or = to 20 mg Amlodipine + Atorvastatin > than or = to 2.5/40 mg Ezetimibe + Simvastatin 10/80 mg Simvastatin 80mg Discharge Plan Admission Admit Date/Time: 08/15/24 17:17 Primary Reason for Your Visit: Post operative hypoxia Attending Provider: Dillon Sam Primary Care Provider: Mariana Redd Consulting Providers: Evelyn Wilson Instructions Patient Instructions: ED Fall Prevention Additional Instructions / Restrictions: DISCHARGE INSTRUCTIONS PLEASE READ *Please take this with you to your next doctors appointment* -Your amlodipine has been held, recommend checking her blood pressure at home and 1 your systolic blood pressure (top number) is greater than 130 please resume this -Follow up with Dr. Sam in 1-2 days. Please call upon discharge to schedule your follow up appointment -Please take 2 tabs of 500mg acetaminophen every 8 hours for 1 week for pain control -Please call your primary care provider's office upon discharge to schedule a hospital follow up within 1 week. -For any concerning signs or symptoms please call 911 or proceed to the nearest emergency department Discharge instructions from Dr. Sam after your surgery Diet Discharge Diet: No restrictions Activity Ice area for (Minutes): 10 Keep extremity elevated above heart level: Operative Extremity Additional Activity Instructions:: pendulums only Dressing / Incision Call your doctor if your incision/area has: Continuous Slow Oozing, Sudden Increased Bleeding, Increased Pain/ Swelling, Increased Redness, Foul Smelling Discharge and Swelling at the incision site Call your doctor if you observe: Fever of 101 or Higher, Coldness, Increased Pain and Numbness or Tingling Change Dressing in: leave in place till F/U Cleanse incision/area with: Do not get Incision Wet Follow Up Care Please Follow Up With: Dillon Sam MD When: 2-3 days Test Results: Test results from this visit will be discussed in further detail at your follow- up appointment, if applicable. Discharge Orders/Prescriptions Prescriptions: New acetaminophen 500 mg Tablet 1,000 mg PO Q8 7 Days Qty: 0 0RF Continued atorvastatin [Lipitor] 20 mg tablet 20 mg PO DAILY cholecalciferol (vitamin D3) 50 mcg (2,000 unit) capsule 50 mcg PO DAILY gabapentin 600 MG tablet 600 mg PO 4X/DAY ascorbic acid (vitamin C) 500 MG tablet 500 mg PO DAILY Eliquis 5 mg tablet 5 mg PO BID Qty: 60 0RF metoprolol tartrate 50 mg tablet 50 mg PO BID Qty: 60 0RF Held amlodipine 10 mg tablet 10 mg PO DAILY Qty: 90 3RF Hold Instructions: Resume on 08/19/24. Discontinued acetaminophen [Tylenol Arthritis Pain] 650 mg tablet extended release 650 mg PO Q12H Referrals / Follow Up: Mariana Redd MD [Primary Care Provider] - Dillon Sam MD [Med Staff - Active Staff] - See Referral Note (Follow up with Dr. Sam in 1-2 days. Please call upon discharge to schedule your follow up appointment) Disposition Disposition (needs filled in before D/C Order can be placed): Home, Self Care Charges/Coding Visit Charges Inpatient E&M: 89808 Disch Hosp
--- NOTE | 2024-08-16 13:26 | PHA.DC.MR.R ---
Pharmacy OR Med Reconciliation Pharmacy Service has performed discharge medication reconciliation for this patient. The patient's discharge medication list was reviewed for discrepancies and discrepancies were resolved. Medications at Discharge Home Medications ascorbic acid (vitamin C) 500 mg tablet 500 mg PO DAILY vitamin 07/20/13 gabapentin 600 mg tablet 600 mg PO 4X/DAY nerve pain 07/20/13 atorvastatin 20 mg tablet (Lipitor) 20 mg PO DAILY cholesterol 01/29/23 apixaban 5 mg tablet (Eliquis) 5 mg PO BID #60 tabs 02/03/23 metoprolol tartrate 50 mg tablet 50 mg PO BID #60 tabs 02/03/23 amlodipine 10 mg tablet 10 mg PO DAILY blood pressure #90 tabs 03/15/23 cholecalciferol (vitamin D3) 50 mcg (2,000 unit) capsule 50 mcg PO DAILY 03/15/23 acetaminophen 500 mg tablet 1,000 mg (2 x 500 mg) PO Q8 7 days #0 tabs 08/16/24
[2024-08-16 14:10] VITALS: BP 123/66; PULSE 74; RESP 18; TEMP 36.9; O2SAT 96
== END 2024-08-16 14:15 | disposition home or self-care (01) | DRG 982 ==
LOC: MS3 20:54 → SDC 20:54 → MS3 20:54
PROVIDERS: Internal Medicine; Admitting Provider Internal Medicine; PCP Family Medicine; Referring Provider Orthopaedic Surgery Sports Medicine; Visit Provider Orthopaedic Surgery Sports Medicine
DX: R09.02 Hypoxemia (principal); B02.29 Other postherpetic nervous system involvement; S42.221A 2-part displaced fracture of surgical neck of right humerus, initial encounter for closed fracture; I10 Essential (primary) hypertension; I34.81 Nonrheumatic mitral (valve) annulus calcification; I48.0 Paroxysmal atrial fibrillation; E78.00 Pure hypercholesterolemia, unspecified; I95.81 Postprocedural hypotension; I08.1 Rheumatic disorders of both mitral and tricuspid valves; X58.XXXA Exposure to other specified factors, initial encounter; R26.81 Unsteadiness on feet; Z79.01 Long term (current) use of anticoagulants; Z79.899 Other long term (current) drug therapy; Z86.711 Personal history of pulmonary embolism; Z86.16 Personal history of COVID-19
CPT/HCPCS: 36415; 71045; 73060; 76000; 80048; 80053; 83735; 83880; 84100; 85025; 94668; 94762; 97162; 97166; 99252; C1713; J7030; J7120; A4216; G0463; J2405

== ENCOUNTER → 2025-01-16 | Outpatient (CLI) | payer MEDICARE, OTHER, SELFPAY | END | disposition home or self-care (01) | LOC: LABSPEC 13:44 | PROVIDERS: PCP Family Medicine; Referring Provider Family Medicine; Visit Provider Family Medicine | DX: R33.9 Retention of urine, unspecified (principal) | CPT/HCPCS: 87086; 87088 ==

== ENCOUNTER → 2025-03-06 | Outpatient (CLI) | payer MEDICARE, OTHER, SELFPAY ==
[2025-03-06 12:34] LABS: Absolute Lymphocyte Count 2.14 X10^3/uL (0.83-4.51); Absolute Neutrophil Count 4.8 X10^3/uL (2.0-7.7); Basophil# 0.06 X10^3/uL; Basophil% 0.8 % (0-1); Eosinophil# 0.08 X10^3/uL; Eosinophils% 1.1 % (0-5); Hematocrit 47.8 % (37-47); Hemoglobin 16.3 g/dL (12.0-15.0); Lymphocyte # 2.14 X10^3/ul (0.83-4.51); Lymphocyte % 28.4 % (19-41); Mean Corp Hgb Conc 34.1 g/dL (32-36); Mean Corpuscular Hgb 30.9 pg (27.0-32.0); Mean Corpuscular Volume 90.5 fL (81-99); Mean Platelet Vol. 9.8 fl (6.2-12.0); Monocyte# 0.45 X10^3/uL; NRBC Flagged by Analyzer 0 % (0-5); Neutrophil # 4.79 X10^3/uL (2.7-7.7); Neutrophil % 63.4 % (47-70); Platelet Count 237 K/mm3 (150-450); RBC Distribution Width CV 12.7 % (11.6-14.6); Red Blood Count 5.28 M/mm3 (4.2-5.4); White Blood Count 7.5 K/mm3 (4.4-11.0)
[2025-03-06 13:24] LABS: ALB/GLOB Ratio 1.6 RATIO (0.9-2.4); AST(SGOT) 19 U/L (<=31); Alanine Aminotransfer ALT/SGPT 13 U/L (<=34); Albumin, Serum 4.5 g/dL (3.4-4.8); Alkaline Phosphatase 81 U/L (35-104); Anion Gap 11 (5-15); BUN 8 mg/dL (4-19); BUN/Creat Ratio 12.2 RATIO (10-20); Calcium,Total 10.2 mg/dL (7.6-11.0); Carbon Dioxide 29.6 mmol/L (21.0-32.0); Chloride 101 mmol/L (98-108); Cholesterol 177 mg/dL (<=200); Creatinine, Serum 0.64 mg/dL (0.70-1.20); EST Glomerular Filtration Rate 88 (>60); Globulin 2.9 g/dL (2.2-4.2); Glucose 114 mg/dL (70-99); High Density Lipoprotein 67 mg/dL; Low Density Lipoprotein Calc. 87 mg/dL; Protein, Total 7.4 g/dL (5.9-8.4); Sodium Level 141 mmol/L (133-145); Total Bilirubin 1.11 mg/dL (0.00-1.30); Triglycerides 114 mg/dL; Very Low Density Lipoprotein 23 mg/dL (5-40); cholesterol:hdl ratio screen 2.63
== END | disposition home or self-care (01) ==
LOC: LAB 11:52
PROVIDERS: PCP Internal Medicine; Referring Provider Student in an Organized Health Care Education/Training Program; Visit Provider Student in an Organized Health Care Education/Training Program
DX: E78.5 Hyperlipidemia, unspecified (principal); I10 Essential (primary) hypertension; R53.83 Other fatigue
CPT/HCPCS: 36415; 80053; 80061; 84443; 85025

== ENCOUNTER → 2025-04-16 | Outpatient (CLI) | payer MEDICARE, OTHER, SELFPAY | END | disposition home or self-care (01) | LOC: LABSPEC 15:04 | PROVIDERS: PCP Internal Medicine; Visit Provider Obstetrics & Gynecology | DX: N76.0 Acute vaginitis (principal) | CPT/HCPCS: 87070; 87205 ==

== ENCOUNTER → 2025-05-24 | Outpatient (CLI) | payer MEDICARE, OTHER, SELFPAY ==
--- NOTE | 2025-05-24 12:38 | US_ITS ---
PROCEDURE: POST VOID RESIDUAL BLADDER 05/24/2025 REASON FOR EXAM: INCOMPLETE EMPTYING TECHNIQUE: POST VOID RESIDUAL BLADDER COMPARISON: None FINDINGS: Prevoid volume of the urinary bladder: 232.48 mL Postvoid residual: 22.31 mL. No significant postvoid residual. Bladder wall thickness is normal. US/Post Void Residual Bladder IMPRESSION: No significant postvoid residual. Reading Location: [id number]
--- NOTE | 2025-05-24 13:30 | BD_ITS ---
PROCEDURE: DEXA BONE DENSITY STUDY 05/24/2025 REASON FOR EXAM: FOLLOW UP F, age 84 y/o . Postmenopausal. TECHNIQUE: DEXA BONE DENSITY STUDY COMPARISON: Prior study dated December 19, 2015. FINDINGS: BMD and T-SCORES Lumbar spine: 0.949 g/cm2, T-score -0.8 Levels: L1 through L4 Change from prior: Loss of 12.9%. Left femoral neck: 0.670 g/cm2, T-score -1.6 Femoral neck comparison data not recommended for monitoring change. Left total hip: 0.798 g/cm2, T-score -1.2 Change from prior: Loss of 11.8%. Right femoral neck: 0.654 g/cm2, T-score -1.8 Femoral neck comparison data not recommended for monitoring change. Right total hip: 0.730 g/cm2, T-score -1.7 Change from prior: Loss of 17.5%. The World Health Organization has defined the following categories based on bone density: Normal bone density: T-score equal to or greater than -1.0 Osteopenia: T-score between -1.0 and -2.5 Osteoporosis: T-score equal to or less than -2.5 FRAX (or Comparable) Fracture Risk Assessment: 10 Year Probability of Fracture: Major Osteoporotic Fracture: 21% Hip Fracture: 5.4% (Note: FRAX is not to be reported in setting of normal range bone density, osteoporosis on DEXA, known history of osteoporosis, prior osteoporotic hip or vertebral fracture, or for any patient undergoing pharmacological treatment for bone loss.) The National Osteoporosis Foundation (NOF) recommends pharmacological treatment for patients with a FRAX 10-year risk of 3% or higher for a hip fracture, or 20% or higher for a major osteoporotic fracture, to prevent osteoporosis and reduce fracture risk. The patient does meet the pharmacological treatment recommendations for prevention of osteoporosis. BD/Dexa Bone Density Study IMPRESSION: OSTEOPENIA. Recommend follow-up as clinically warranted. Reading Location: [id number]
== END | disposition home or self-care (01) ==
LOC: OPUS 12:36
PROVIDERS: PCP Internal Medicine; Referring Provider Internal Medicine; Visit Provider Internal Medicine
DX: M81.0 Age-related osteoporosis without current pathological fracture (principal); R33.9 Retention of urine, unspecified
CPT/HCPCS: 51798; 77080